=== PATIENT | female | born 1950 | race Caucasian/White ===

== ENCOUNTER → 2016-04-13 | Outpatient (CLI) | payer OTHER ==
[~2016-04-13] MED LIST: ALBUTEROL0.09 MG/A2; ALBUTEROL0.09 MG/A2 INH; ASPIRIN325 MG PO; AUGMENTIN 500500 M1 PO; BENICAR HCT 251 TA1 PO; CARDIZEM CD240 M1 PO; CARISOPRODOL350 MG PO; CEFUROXIME AXE250 MG PO; CIPRO750 MG PO; CLOTRIMAZOLE ANTIF1% TP; COMPAZINE10 MG; CYMBALTA60 MG PO; DICLOFENAC SOD75 MG PO; DILTIAZEM CD240 MG PO; DIOVAN320 MG PO; DOXYCYCLINE100 M3 PO; ELIQUIS5 M1 PO; EVISTA60 MG PO; GLIMEPIRIDE4 MG PO; IMODIUM2 MG PO; LEVAQUIN750 MG PO; LIPITOR80 MG PO; LOVAZA1 GM PO; LYRICA300 MG PO; MIRALAX17 GM/DOSE PO; MIRALAX17 GM/PACK PO; PERCOCET 325 MG1 TA7 PO; PERCOCET 325 MG1 TAB PO; PLAVIX75 MG PO; PREDNISONE5 MG PO; PRILOSEC40 MG PO; PROCHLORPERAZINE PO; PROTONIX40 MG PO; SPIRIVA18 MCG INH; SYMBICORT1 AER INH; TIZANIDINE HCL4 MG PO; TRILIPIX PO; TRILIPIX45 M1 PO; ZANTAC 150150 MG PO; ZOFRAN ODT8 MG PO
--- NOTE | ~2016-04-13 | PR ---
[place], [place] PROGRESS NOTE NAME: VLADISLAV GALDAMEZ [facility] #: [id number] UNIT #: [id number] ROOM: DOCTOR: TITUS MahoneyCHERYL BIRTHDATE: [birth year] DOS: 04/13/2016 CHIEF COMPLAINT: Open ulcers of the left lower extremity and right lower extremity. HISTORY OF PRESENT ILLNESS: This is a 66-year-old female with a history of recurrent venous leg ulcers who has been treated in the wound clinic and is known to me from her previous admission. She was discharged back in January after her wounds healed with compression therapy. She returns today with new ulcerations that she has had for approximately a month and half on the left leg as well as some on the right leg. She has a history of chronic edema. I did write her a script for new compression stockings, but she has not gotten them filled. She says her has been sick and has not been able to drive for quite some time. She does complain of some discomfort around the wounds, mostly on the left leg. No fevers or chills are noted. PHYSICAL EXAMINATION: VITAL SIGNS: Stable. Blood pressure is 110/84, pulse of 80, respirations 18, temperature is 97.8. EXTREMITIES: The right leg has a wound that is measuring approximately 0.8 x 0.8 x 0.1. There is a very thick eschar formation and there is some minimal erythema around the periwound. This does not appear to be tender. There is moderate amount of pitting edema of this lower extremity. Her left lower extremity also has fairly larger wounds on the anterior and calf area of the left lower leg that are superficial in nature, but fairly weepy with some surrounding erythema and discomfort. There is some minimal fibrin slough present in the base of the wound that is superficial and there is some adherent slough present in the periwound area as well. Her pulses are palpable. Her WILEY was done just a few months ago and was within normal limits in both lower extremities. Her pedal pulses are palpable as stated above. She does have a fair amount of pitting edema bilaterally. The measurements of the left lower leg wound are 6.1 x 2.3 x 0.1. The posterior calf wound is measuring 2.2 x 1.5 x 0.1. Debridement was done of the left calf wound as well as the right anterior wound. The tissue removed was just fibrin slough, nonviable tissue. There is minimal amount of bleeding that was controlled with pressure. The patient tolerated the debridement well. The post-debridement measurements are the same on the left leg. However, the post-debridement measurements on the right leg are slightly different at 1 x 0.6 x 0.1. The patient tolerated the debridement well. Instrument used was a curette. Cetacaine spray was used for topical anesthesia. ASSESSMENT AND PLAN: Recurrent venous leg ulcers in a patient with chronic leg edema. She did respond very well to Unna boot therapy last time, we will go ahead and restart the use of use Adaptic and a collagen dressing for now. Unna boot will be applied on the left leg as those wounds are much larger than the right lower leg wounds at this time. We will have her use a Tubigrip on the right lower extremity while she is here, she has compression stockings that she can use on her right leg at home. The Unna boot will be applied today and then she will follow back up in the Wound Clinic early next week on Sunday for a [place], [place] PROGRESS NOTE NAME: VLADISLAV GALDAMEZ UNIT #: [id number] ROOM: DOCTOR: CHERYL QURESHI M.D. BIRTHDATE: [birth year] wound care appointment and reevaluation. She did do well with the Unna boots before and I expect that she will do fine with these as well. She did have some mild erythema and tenderness around the periwound and mild cellulitis. We will add doxycycline to the regimen for 10 days. Followup is next week. CHERYL QURESHI MD CM:FLORINDA [id number] CHERYL QURESHI M.D. 04/13/16 2938 interface
== END ==
LOC: WOUNDCARE 03:10
DX: E11.622 Type 2 diabetes mellitus with other skin ulcer (principal); L97.821 Non-pressure chronic ulcer of other part of left lower leg limited to breakdown of skin; L97.811 Non-pressure chronic ulcer of other part of right lower leg limited to breakdown of skin; I87.2 Venous insufficiency (chronic) (peripheral)

== ENCOUNTER 2016-08-27 17:10 | Inpatient (IN) | payer OTHER, MEDICARE ==
[~2016-08-27] VITALS: Ht 165.1 cm; Wt 113.4 kg
--- NOTE | ~2016-08-27 | PR ---
[place], [place] PROGRESS NOTE NAME: VLADISLAV GALDAMEZ UNIT #: [id number] ROOM: [facility]- DOCTOR: GABRIELA PARDO MD BIRTHDATE: [birth year] DOS: 08/30/2016 SUBJECTIVE: Ms. Galdamez is now sitting up in chair, quite responsive on oxygen. Denies any specific cardiac complaint. No chest pain, chest pressure, no symptomatic palpitation. OBJECTIVE: VITAL SIGNS: Blood pressure 102/63, heart rate 112, respiratory rate of 20, temperature 97.4. NECK: Good upstroke, no bruit. HEART: S1, S2 with distant heart sound. No rub, no retrosternal heave. Systolic ejection murmur at the right upper sternal border. LUNGS: Decreased air movement, but no [place] wheezing or rales. EXTREMITIES: Lower extremities, there is mild 1-2/4 edema. LABORATORY DATA: White count 12.7, hemoglobin 12.3, potassium 3.0, creatinine 1.7. Troponin, last value 0.26. CPK and MB were negative. ASSESSMENT AND PLAN: 1. Presentation with septic shock. The patient is requiring Levophed. The patient is currently off the pressors. Sitting up in chair showing significant improvement. 2. Elevated cardiac enzymes that is overall not consistent with an ischemic event. 3. Echocardiogram showed normal LV function with moderate aortic stenosis. 4. Ischemic evaluation will be pursued and this can be done as an outpatient. 5. Maximize anti-ischemic medications as much vital signs will allow us targeting the remote possibility of acute coronary syndrome. GABRIELA PARDO MD CM:PNTRANS [id number] GABRIELA PARDO MD 08/30/16 2344 interface
--- NOTE | ~2016-08-27 | DS ---
[place], [place] DISCHARGE SUMMARY NAME[id number] UN[facility] #: [id number] ROOM: 406 DOCTOR: JUANI HATCH MD BIRTHDATE: [birth year] DOS: 09/06/2016 DISCHARGE DIAGNOSES: 1. Sepsis, hypotension, tachycardia, fever, positive blood and urine cultures for Escherichia coli, treated and resolved. 2. Acute atrial fibrillation, now converted to sinus rhythm. 3. Type 2 diabetes mellitus. 4. Type 2 myocardial injury followed by Cardiology. 5. History of coronary artery disease of [place] vessels without chest pains. 6. Urinary tract infection with urine cultures growing Escherichia coli and cystitis. 7. Morbid obesity, BMI of 41.6 right and left lower extremity superficial skin wounds with chronic stasis dermatitis in both lower extremities. 8. Poor health and adult failure to thrive. HOSPITAL COURSE: The patient presented with hypotension, rapid heart rates, high-grade fever and severe sepsis. The patient was admitted to the ICU, treated with hydration with IV fluids and antibiotics. The patient was followed by Cardiology; Infectious Disease specialist; and environmental communications specialist, Dr. Carvajal. The patient had altered mental status and does not remember the time of coming to the hospital or her first few days at the hospital. The patient was treated for respiratory failure with BiPAP and she later on became more alert and oriented and her blood pressure improved. The patient was kept on pressors without IV infusion of pressors to maintain her blood pressure. The patient's cardiac enzymes were elevated and she was evaluated by Cardiology for this. The patient's cardiac enzyme elevation was thought to be secondary to her sepsis. Further cardiac evaluation as an outpatient to be decided by the microwave supervisor. Adult failure to thrive and overall poor health and poor long-term prognosis because of her multiple medical problems, generalized weakness, disability and failure to thrive. This was discussed with the patient and her together on multiple occasions. I have recommended that the patient should maintain a DNR comfort care code status. Coronary artery disease of [place] vessels without chest pains. Type 2 diabetes mellitus. Blood sugars were monitored and treated and are reasonably controlled. The patient developed acute atrial fibrillation which has converted back to normal sinus rhythm. I have treated her with digoxin. The patient grew E. coli from blood and urine cultures which was appropriately treated with antibiotics. For rehabilitation, the patient is being transferred to intermediate facility. My attempt to transfer her to an LTAC facility, which she required, was turned down by the patient's insurance. Mixed hyperlipidemia, treated with Lipitor. [place], [place] DISCHARGE SUMMARY NAME: VLADISLAV GALDAMEZ UNIT #: [id number] ROOM: [facility] DOCTOR: OHLDEN SHARMA,JUANI Douglass BIRTHDATE: [birth year] Chronic constipation, treated with MiraLax. DISCHARGE MANAGEMENT: Digoxin 250 mcg daily, Xarelto 20 mg daily, metoprolol 25 mg b.i.d., Nicotine patch 21 mg daily, Tylenol p.r.n., glimepiride 4 mg a day, DuoNeb every 4 hours, Protonix 40 mg a day, Cymbalta 60 mg b.i.d., tizanidine 4 mg b.i.d., MiraLax 17 grams daily, Lipitor 80 mg daily, oxycodone 5 mg every 6 hours p.r.n. for pain. JUANI HATCH MD CM:DISCHARG 34 JUANI HATCH MD 09/06/161933 interface
--- NOTE | ~2016-08-27 | PR ---
[place], [place] PROGRESS NOTE NAME: VLADISLAV GALDAMEZ UNIT #: [id number] ROOM: 406 DOCTOR: JUANI HATCH MD BIRTHDATE: [birth year] DOS: 09/07/2016 The patient is still waiting for discharge to longterm facility. She continues to improve daily, but she is not independently transferring or ambulating. OBJECTIVE: VITAL SIGNS: Blood pressure 131/66, heart rate of 87 beats per minute, breathing 20 times per minute, temperature afebrile. GENERAL APPEARANCE: Generalized weakness and obesity. HEENT AND NECK: Exam within normal limits. CARDIOVASCULAR SYSTEM: Heart rate is regular in rate and rhythm. S1 and S2 normally audible. LUNGS: Clear to auscultation. ABDOMEN: Soft, nontender. No obvious organomegaly. Bowel sounds are present. EXTREMITIES: Without significant cyanosis or edema. IMPRESSION: 1. Sepsis, hypotension, tachycardia, fever and positive blood cultures with E. coli and urine cultures, have been treated. 2. Chronic atrial fibrillation with controlled heart rates. 3. Type 2 diabetes mellitus with controlled blood sugars. 4. Coronary artery disease of [place] vessels without chest pain. 5. Morbid obesity. The patient working with dietary. 6. Poor health and adult failure to thrive. JUANI HATCH MD CM:PNTRANS [id number] JUANI HATCH MD 09/08/16 0034 interface
--- NOTE | ~2016-08-27 | PR ---
[place], [place] PROGRESS NOTE NAME: [facility] [id number] UNIT #: [id number] ROOM: 406 DOCTOR: GABRIELA PARDO MD BIRTHDATE: [birth year] DOS: 08/31/2016 SUBJECTIVE: The patient is sitting in a chair, still in the Intensive Care Unit, reporting significant improvement in her shortness of breath and denies any specific cardiac complaint. No chest pain, no chest pressure, no symptomatic palpitation. OBJECTIVE: VITAL SIGNS: Blood pressure 125/74, heart rate 87, respiratory rate of 20, temperature 98.7. NECK: Good upstroke, no bruit. HEART: S1, S2 with systolic ejection murmur at the right upper sternal border. LUNGS: Significant decrease in air movement, but no [place] wheezing or rales. LOWER EXTREMITIES: Edema bilateral. LABORATORY DATA: White count is 12.7, hemoglobin is 12.3, still there is left shift. Potassium 3.1, creatinine 1.3, GFR 40%. Initial troponin 0.262, then 0.576, then 0.514, then 0.139. CPK is 192 and 239, MB 2.1 and 1.8. ASSESSMENT AND PLAN: 1. Presentation with septic shock with need for pressors (Levophed). The patient is off pressors, sitting up in a chair, does not appear in distress, reporting significant improvement. 2. Elevated cardiac enzymes with normal CPK and MB, but elevated troponin, pattern most likely not consistent with ischemic event. Still we would like to be careful in pursuing ischemic workup later on and can be done as an outpatient. Today, I will proceed to stop the digoxin and increase Toprol to 25 mg b.i.d. Continue enteric aspirin for now. Aggressive cardiac risk modification will be pursued also as an outpatient. Consider sleep study also. GABRIELA PARDO MD CM:PNTRANS [id number] GABRIELA PARDO MD 09/01/16 7897 interface
--- NOTE | ~2016-08-27 | PR ---
[place], [place] PROGRESS NOTE NAME: VLADISLAV GALDAMEZ UNIT #: [id number] ROOM: 406 DOCTOR: JUANI HATCH MD BIRTHDATE: [birth year] DOS: 08/31/2016 SUBJECTIVE: The patient is more awake and alert, feeling much better. OBJECTIVE: VITAL SIGNS: Blood pressure 132/82, heart rate of 95 beats per minute, breathing 20 times per minute, temperature 98.2 degrees Fahrenheit. GENERAL APPEARANCE: The patient is alert and oriented x 3, in no visible distress. HEENT AND NECK: Exam within normal limits. CARDIOVASCULAR SYSTEM: Heart rate is regular in rate and rhythm. S1 and S2 normally audible. LUNGS: Clear to auscultation. ABDOMEN: Soft, nontender. No obvious organomegaly. Bowel sounds are present. EXTREMITIES: Without significant cyanosis or edema. IMPRESSION: 1. The patient with sepsis, leukocytosis, fever, all improved. 2. Atrial fibrillation with varying heart rate, presently stable. The patient on Lopressor. Cardiology following. 3. Type 2 diabetes mellitus. Blood sugars being monitored and controlled. 4. Coronary artery disease of [place] vessels without angina symptoms. 5. Generalized weakness, failure to thrive and lethargy, all improved with treatment. 6. Hypotension from sepsis, improved. The patient can be sent to intermediate monitored bed today. JUANI HATCH MD CM:PNTRANS 02 2 JUANI HATCH MD 09/01/16 013 interface
--- NOTE | ~2016-08-27 | PR ---
[place], [place] PROGRESS NOTE [id number] #: [id number] ROOM: 406 DOCTOR: TITUS Mahoney,CHERYL BIRTHDATE: [birth year] DOS: 09/06/2016 WOUND CARE FOLLOWUP NOTE I was asked to see the patient's wound today as there was a question about possibly discontinuing the alginate as there is very little drainage. The last time I had seen the patient, there were plans for the patient to be discharged to either a usp or long-term OPAC, however, this apparently did not take place. The patient says she thinks her wounds are doing fine and they are not causing her any pain or discomfort at this time. PHYSICAL EXAMINATION: VITAL SIGNS: The patient's vitals are stable. Temperature 98.9, pulse is 84, respirations 18, blood pressure is 148/79. WOUND EXAIMINATION: The dressings were removed. The wounds were examined. The edema seems improved and the ulcerations are markedly improved from when I last saw her. There is no necrotic tissue. The left leg wound, which was quite large upon admission, has improved at least 75%. There is large amounts of epithelialization and no sign of infection. The edema is controlled. The right lower extremity wound is also much smaller and has greatly improved. There is very little drainage on the dressings. The Maxorb was really almost dry. ASSESSMENT AND PLAN: Venous leg ulcerations bilaterally. The left was larger than the right. They are definitely improving and stable. There is no sign of excessive drainage or infection and it is okay to go ahead and discontinue the alginate. So, we will just go ahead and continue with TheraHoney, Versatel, 4 x 4s and Tubigrip. These orders were changed in the discharge orders if the patient is planning on being discharged soon. CHERYL QURESHI MD CM:PNTRANS [phone] CHERYL QURESHI M.D. 09/06/161840 interface
--- NOTE | ~2016-08-27 | CON ---
[place], [place] REPORT OF CONSULTATION NAME: VLADISLAV GALDAMEZ UNIT #: [id number] [facility] DOCTOR: TITUS MahoneyCHERYL BIRTHDATE: [birth year] DOS: 08/28/2016 REASON FOR CONSULT: Wound care has been consulted for bilateral leg wounds. HISTORY OF PRESENT ILLNESS: The patient is known to the Wound Clinic for history of venous insufficiency. She had responded well to compression therapy. We had used Unna Boots in the past and her wounds have healed, but she has not come back to the wound clinic. The last time we saw her was back in April. The last time we had seen her I did write a script for compression stockings for her. I do not know if she ever obtained them or not. She has a history of chronic edema. Her ABIs back in December were 1.04 and 1.11, which is normal. Briefly, the patient has a history of diabetes and had come to the Emergency Department with complaints of mental status changes. She was brought in by her . She was also noticed to have a fever of 103 and was noted to have some seeping wounds of her right leg with an odor noted from the right leg wound, it sounds like; as well as noted to have foul, urinary incontinence as well. The patient had a fever of 103 when she was admitted, was lethargic, minimally responsive and had signs of sepsis. Apparently, it sounds like it started suddenly when she was fine earlier that day, had eaten breakfast and then she had shaking chills and the had noticed that she had been more and more incoherent. Her glucose was noted to be at 207 upon arrival to the EMS and she had a fever of 101, but had shaking chills. PAST MEDICAL HISTORY: Significant for the following; abdominal pain, coronary artery disease, cellulitis of the abdominal wall, diabetes, GERD, intractable nausea and vomiting, morbid obesity, respiratory failure and sepsis as well as tobacco abuse. PAST SURGICAL HISTORY: Positive for laminectomy, right knee surgery, tubal ligation, appendectomy. She has also had eye surgery, bunion surgery, teeth extractions, cardiac catheterization and stents x 2. SOCIAL HISTORY: She does not drink or use drugs, but she does smoke. Apparently, she smokes 3 packs a day of cigarettes. There is a history of paroxysmal atrial fibrillation as well, diabetes mellitus, polyneuropathy, hyperlipidemia, and major depression. ALLERGIES: PENICILLIN. FAMILY HISTORY: Coronary disease in her father, diabetes in her father, myocardial infarction in her father. Mother; failure to thrive syndrome. MEDICATIONS: Levaquin 750 mg IV q. 48h., Lovenox 30 subq daily, vancomycin 1750 IV q. 36h., Lovenox 30 subq daily, Tylenol 650 q. 4h. p.r.n., Nicoderm 21 mg daily, aspirin 81 daily, norepinephrine drip, glimepiride 4 mg p.o. daily, albuterol nebs 3 mL q. 4h., Protonix 40 mg p.o. daily, Toprol-XL 25 daily, Cymbalta 60 q. 12h., Zanaflex 4 mg p.o. q.i.d., MiraLax powder 17 g daily, Lipitor 80 at bedtime. REVIEW OF SYSTEMS: Unobtainable at this time. [place], [place] REPORT OF CONSULTATION NAME: VLADISLAV GALDAMEZ UNIT #: [id number] ROOM: [facility] DOCTOR: CHERYL QURESHI M.D. BIRTHDATE: [birth year] PHYSICAL EXAMINATION: VITAL SIGNS: Her temperature is 99.1 presently, but she did have a T-max of 103.1 upon arrival, pulse of 87, respirations 24, blood pressure is 80/34. The patient currently is on a BiPAP machine. GENERAL: She is lethargic and sleeping at the present time. Her face appears to be moderately edematous. NECK: There is no JVD. LUNGS: Her lung sounds are diminished in the bases, but clear to auscultation anteriorly. CARDIOVASCULAR: S1, S2 regular rate and rhythm, tachycardic. ABDOMEN: Morbidly obese and soft. EXTREMITIES: She has 2+ to 3+ pitting edema bilaterally. Her pedal pulses are palpable and her toes are warm. She has a fairly large ulceration on the left leg laterally that is superficial in nature with some weeping serous fluid coming from it. It is fairly large, I would say approximately 6-7 cm in length and 4-5 cm in width. There is really not much depth, depth of 0.1. There appears to be a healing ulcer on the left calf, which appears dry and stable at this time. The right anterior leg has a wound that is size of a quarter that is dry. Presently, there is [id number] erythema around the area. It does not appear moist at this time, it appears extremely dry presently. LABORATORY DATA: Her labs show a white count of 21,000, hemoglobin of 13, platelets of 126,000 with 94% neutrophils. She had a urinalysis, which showed 2+ blood, nitrite positive, 3+ leukocyte esterase, numerous red cells, numerous white blood cells, 5-10 epithelial cells, trace sediment and 4+ bacteria. She had a chest x-ray which showed no consolidation or atelectasis in either lung. She had a troponin that was positive at 0.576 and a CPK of 239. Her sodium was 143, potassium 3.3, chloride 108, BUN 29, creatinine was 1.96, glucose was 136, hemoglobin A1c was 5.1, albumin was 2.9. ASSESSMENT AND PLAN: Chronic venous stasis ulcerations complicated by diabetes. At this point, for the left leg; it looks like a culture was already obtained; I would use Versatel and Maxorb Silver to absorb drainage and for bioburden control. For her edema, I will use a Tubigrip for now and at some point we may want to switch to an Michael wrap. She did have a good WILEY while she was here at the wound clinic, but we may want to consider repeating her vascular testing while she is here. Her right lower extremity has wounds at various stages of healing; at this point are fairly dry. There is some mild erythema of the right anterior leg wound so I would go ahead and try TheraHoney and the Versatel for now on this wound and have her use Tubigrip as well for edema control. She did respond very well to Unna Boots in the past in the Wound Clinic. She has multiple other medical problems including sepsis, positive cardiac enzymes from renal failure, hypotension, which is being managed by her medical team. She continues to be in critical condition in the ICU on pressors. Thank you for this consult. [place], [place] REPORT OF CONSULTATION NAME: VLADISLAV GALDAMEZ UNIT #: [id number] ROOM: [facility] DOCTOR: CHERYL QURESHI M.D. BIRTHDATE: [birth year] CHERYL QURESHI MD CM:CONSTR:REPORT OF CONSULTATION 1611 08/28/16 2323 interface
--- NOTE | ~2016-08-27 | CON ---
[place], [place] REPORT OF CONSULTATION NAME: VLADISLAV GALDAMEZ UNIT #: [id number] ROOM: [facility] DOCTOR: FRANCESCO NOVA MD BIRTHDATE: [birth year] DOS: 08/28/2016 PULMONARY CRITICAL CARE EVALUATION AND MANAGEMENT HISTORY OF PRESENT ILLNESS: A 66-year-old female with a known with history of longstanding COPD, tobacco use and other problem. The patient has been brought to the hospital. The patient has been noted with symptoms of increased lethargy, decreased responsiveness and not responding to the vocal commands appropriately but spent for 24 hours. The symptoms have been noted worsening. The patient has been noted mostly lying in the cart with difficulty to ambulate and use the bathroom as well. The patient has been assessed in the Emergency Room. She was noted oral temperature of 101 degrees Fahrenheit with foul smelling wound, some discharge of the left lower extremity as well and significantly lethargic. She was brought to the Emergency Room where she has been assessed and admitted to the hospital. The patient was started on oxygen supplementation for the medical management of respiratory failure and hypoxia. Currently, the patient is getting 50% oxygen supplementation for the medical management of hypoxia. She was still noted with some drowsiness and falls quickly sleeping as the patient answered their questions only at times. The vocal communication was not noted adequate at this time of assessment in the Intensive Care Unit. The patient's son has been also present in the room with the patient who assisted only part of the history. The review of systems cannot be completed effectively since the patient has been noted with current change in mental status; however, the patient has been noted with severe chest congestion, coughing on assessment at this time in the room. PAST MEDICAL HISTORY: The patient was known with history of: 1. Wound of the lower extremities which has been managed by the wildlife refuge specialist. Last time, the patient has been seen in the [facility] appeared like in April 2016. 2. History of longstanding COPD. 3. History of chronic heavy nicotine abuse. 4. History of pancolitis. 5. History of obesity hypoventilation and obstructive sleep apnea disorder, noncompliant with treatment. 6. History of diabetic neuropathy. 7. History of coronary artery disease. 8. Gastroesophageal reflux. 9. Hypercholesterolemia. 10. History of aortic stenosis. 11. Abdominal wall cellulitis as well with panniculitis. 12. History of centrilobular emphysema. PAST SURGICAL HISTORY: 1. Tubal ligation. 2. Right eye cataract extraction. 3. Right knee arthroscopy. 4. Removal of the bunion. 5. Cardiac catheterization and coronary artery stent placement. [place], [place] REPORT OF CONSULTATION NAME: VLADISLAV GALDAMEZ UNIT #: [id number] ROOM: [facility] DOCTOR: ANNIE MARTIN MD,FRANCESCO BIRTHDATE: [birth year] 6. Lumbar laminectomy. SOCIAL HISTORY: The patient is and lives at home with . Noted history of tobacco use since teenager. Per son, the patient was smoking 3-4 packs of cigarettes per day. There was no history of alcohol use or illicit drug use. FAMILY HISTORY: Noted for diabetes, CVA, and hypertension. MEDICATIONS: From home: 1. ProAir HFA inhaler p.r.n. use. 2. Symbicort 80/4.5 two puffs b.i.d. 3. Spiriva 18 mcg inhalation daily. 4. Lipitor 80 mg daily. 5. Cymbalta 60 mg b.i.d. 6. Amaryl 4 mg daily. 7. Imodium p.r.n. use. 8. Percocet p.r.n. use for pain. 9. Lyrica 300 mg b.i.d. 10. Evista 60 mg daily. 11. Ranitidine 150 mg p.o. daily. 12. Zanaflex 4 mg q.i.d. DRUG ALLERGIES: Noted allergies to the PENICILLINS. PHYSICAL EXAMINATION: GENERAL: This is a 66-year-old female who has been noted currently drowsiness, wakes up sometimes with the vocal commands. VITAL SIGNS: Height of 5 feet 5 inches, weight of 250 pounds, BMI 41.6. Vital signs recorded shows the temperature noted max of 103 degree Fahrenheit orally and later on noted low-grade fever to 101.3 rectal temperature. HEENT: Shows head was atraumatic. Eyes: No icterus. NECK: Supple. CARDIOVASCULAR: S1, S2 audible. LUNGS: Noted moderate decreased breath sounds with wheezing and scattered crackles. ABDOMEN: Soft, obese, nontender. EXTREMITIES: Noted with edema of the lower extremity. There is a wound of the left lower extremity as well. ABDOMEN: Soft, obese, nontender. CENTRAL NERVOUS SYSTEM: Cannot be examined. The patient failed to follow the instructions appropriately. There were no focal deficits. The patient does move upper and lower extremities at her own will. MUSCULOSKELETAL: No obvious deformities. SKIN: Shows severe cellulitis of lower extremity and wound of the left lower extremity as well. LABORATORY DATA: Lactic acid on 08/27/2016 3.0. Lactic acid followup was 2.0. PT/PTT on 08/27/2016 was noted as normal PT and PTT. CBC, 08/27/2016, on admission noted as normal CBC except platelet count 127,000 mildly decreased. [place], [place] REPORT OF CONSULTATION NAME: VLADISLAV GALDAMEZ UNIT #: [id number] ROOM: [facility] DOCTOR: ANNIE MARTIN MD,[facility] BIRTHDATE: [birth year] Urinalysis on 08/27/2016, 3+ leukocyte esterase, positive nitrites with pending culture of the urine. Arterial blood gas, pH of 7.42, pCO2 of 37, pO2 of 59 on 6 L nasal cannula in the Emergency Room. Another arterial blood gas repeated this morning, pH of 7.48, pCO2 of 32, pO2 of 66 on 50% Venturi mask. CBC this morning, WBC count 21.1, hemoglobin 13.9, hematocrit 42.2, platelet count noted 126,000. ADDITIONAL LABORATORY DATA: CMP on 08/27/2016, glucose 156, BUN 29, creatinine 1.79. Troponin noted at 0.139. Albumin 2.9. Second set of troponin noted 0.514. The third troponin noted as 0.576. BMP this morning, BUN 29, creatinine 1.96, glucose 136, potassium 3.3. IMPRESSION: 1. The patient has been currently noted with acute hypoxic respiratory failure, result of acute exacerbation with chronic obstructive pulmonary disease as well as acute sepsis related to the cellulitis of lower extremity and urinary tract infection, very likely an acute tracheobronchitis with excessive chest congestion was also noted as well. 2. Chronic obesity noted as well with obstructive sleep apnea disorder and obesity-hypoventilation syndrome, noncompliant with the treatment. 3. History of type 2 diabetes mellitus as well. 4. Acute kidney injury, very likely possible underlying chronic kidney disease would be considered. 5. Normal troponin to rule out possibility of non-ST segment elevation myocardial infarction. 6. Thrombocytopenia, most likely related to the acute sepsis as well. PLAN OF MANAGEMENT: The patient will be ordered the BiPAP ____ acute hypoxic respiratory failure. Continue current antibiotic. Monitor the temperature curve. Monitor other culture of the blood and urine. Sputum for Gram stain culture if the patient expectorates any sputum will be sent. The patient will be started norepinephrine for the medical hypotension since the mean arterial pressure noted 60 after previous fluid resuscitation. Monitor lactic acidosis p.r.n. Bronchodilator will be continued. The patient was also started on nicotine replacement patches. Management of diabetes mellitus. Usual care, other supportive therapy, plan and management as well. Addition of vancomycin to the treatment of Levaquin to cover for the gram-positive organism for adequate management of skin infections and wound of the left lower extremity. Culture of the wound will be obtained as well. Further supportive therapy, plan of management. Wound management consultation would be beneficial. DVT prophylaxis. Total time for pulmonary critical care evaluation and management was 38 minutes. [place], [place] REPORT OF CONSULTATION NAME: VLADISLAV GALDAMEZ UNIT #: [id number] ROOM: [facility] DOCTOR: FRANCESCO NOVA MD BIRTHDATE: [birth year] FRANCESCO VALENCIA MD CM:CONSTR:REPORT OF CONSULTATION 1048 08/28/162032 interface
--- NOTE | ~2016-08-27 | DS ---
[place], [place] DISCHARGE SUMMARY NAME: VLADISLAV GALDAMEZ [facility] #: [id number] UNIT #: [id number] ROOM: 406 DOCTOR: HOLDEN SHARMAJUANI J BIRTHDATE: [birth year] DOS: 09/01/2016 DISCHARGE DIAGNOSES: The patient presented with severe sepsis, leukocytosis, hypotension, fever, altered mental status and respiratory failure. HOSPITAL COURSE: The patient was admitted to the ICU and Dr. Carvajal, the cessation systems outreach specialist and feeder driver was consulted to help with management along with Dr. Diego Leach, the poiser. The patient was treated in the ICU. She was kept on BiPAP for respiratory failure and followed closely. The patient mostly remained lethargic and was unable to answer any questions. The patient was severely hypotensive and had to be treated with Levophed to maintain her blood pressure. As her sepsis improved, she was tapered off Levophed. The patient still remains on antibiotic and I am transferring her to LTAC facility for continued and close monitoring. The patient is going to have a prolonged recovery phase because she was extremely sick and her underlying health is poor. The patient is awake, alert and oriented now, but very weak. 1. Adult failure to thrive, obesity, chronic respiratory failure with advanced COPD and history of smoking 3 packs of cigarettes a day. Her long-term prognosis remains guarded. 2. For hypotension, the patient was treated with pressors along with hydration with normal saline, which improved her renal function back to baseline. The patient's BUN and creatinine was 29 and 1.79, which has improved to 31 and 1.32 with hydration. The patient had acute renal failure apparently from sepsis and hypotension, which is resolving now. 3. Urinary tract infection with Escherichia coli growing in urine cultures and also blood cultures, treated appropriately with antibiotics. 4. Elevated troponin levels for which the patient was seen by Cardiology who recommended a cardiac stress test to be performed later after patient has stabilized and is able to undergo cardiac stress testing. Cardiac enzyme elevation apparently secondary to sepsis and hypotension. 5. Right and left lower extremity wounds were treated by training and documentation specialist with appropriate dressings and will be continued at [facility]. 6. Coronary artery disease of the [place] vessels without angina symptoms, with some elevation of troponin I levels, evaluated by Cardiology. 7. Type 2 diabetes mellitus. Blood sugars are monitored and treated. 8. Chronic atrial fibrillation with varying heart rates and recurrent tachycardia, finally treated with IV and now oral digoxin to control the heart rates. LABORATORY DATA: BUN and creatinine of 31 and 1.3 prior to discharge, potassium level of 3.1 for which she received extra potassium dose. Urine cultures and blood cultures both growing E. coli, so the patient had E. coli sepsis. Echocardiogram showed moderate aortic stenosis, it was a limited study, not a very good view according to Cardiology report. DISCHARGE MANAGEMENT: Digoxin 250 mcg daily, Xarelto 20 mg a day, metoprolol 25 mg b.i.d., nicotine patch 21 mg daily, Tylenol 1 gram every 6 hours p.r.n. for pain and fever, glimepiride 4 mg a day, DuoNeb every 4 hours, Protonix 40 mg a day, Cymbalta 60 mg b.i.d., tizanidine 4 mg b.i.d., MiraLax 17 grams daily, Lipitor 80 mg a day, oxycodone 5 mg every 6 hours p.r.n., IV ceftriaxone 2 grams [place], [place] DISCHARGE SUMMARY NAME: VLADISLAV GALDAMEZ UNIT #: [id number] ROOM: 406 DOCTOR: JUANI HATCH MD BIRTHDATE: [birth year] daily. JUANI HATCH MD CM:DISCHARG [id number] JUANI HATCH MD 09/01/16 1330 interface
--- NOTE | ~2016-08-27 | PR ---
[place], [place] PROGRESS NOTE NAME: VLADISLAV GALDAMEZ UNIT #: [id number] ROOM: [facility] DOCTOR: ANNIE MARTIN MD,FRANCESCO BIRTHDATE: [birth year] DOS: 08/29/2016 SUBJECTIVE: This morning, the patient was seen and examined on the date of service of 08/29/2016. She has been noted to be still sleepy at times intermittently. The patient has not noted any symptoms of hemoptysis. Denies symptoms of chest pain, coughing or any sputum expectoration described. The use of the BiPAP has been noted at times for this patient. The patient usually agitated with the use of BiPAP. The patient was also given Geodon by the primary care attending for the agitation. OBJECTIVE: VITAL SIGNS: This morning, blood pressure of 82/46 to 101/44. The heart rate of patient ranged between 105-133, respiratory rate 25-30, temperature 99.5 degrees Fahrenheit. HEENT: Shows no new changes. NECK: Supple. CARDIOVASCULAR: S1, S2 is audible. LUNGS: The patient was noted without any wheezing or crackles at the present time. ABDOMEN: Soft and nontender. EXTREMITIES: Evidence of edema of the extremities still noted with the wound of the left lower extremity. LABORATORY DATA: CBC this morning, WBC count 16.7, hemoglobin and hematocrit normal, platelet count 106,000. BMP: BUN 32, creatinine 1.95, potassium was 3.1. Other labs; the urine culture was noted with heavy growth of gram-negative bacilli. The culture of the wound for this patient was noted without any bacterial growth. No white blood cells, no microorganisms were described. IMPRESSION: 1. The patient with acute urinary tract infection with sepsis as well as acute hypoxic respiratory failure for the patient as a result of that as well. 2. The patient with intermittent change in mental status. 3. Acute kidney injury as well. 4. Abnormal troponin for this patient was still noted. 5. Right lower extremity and the left lower extremity wounds as well. 6. Acute exacerbation of chronic obstructive pulmonary disease as well. PLAN OF TREATMENT: The patient will be continued with the current plan of management at this time without any changes. Continuation of the bronchodilator with oxygen supplementation. Other supportive therapy, plan of management as well. Use of the BiPAP, the patient has tolerated as well. Monitoring the hemodynamics and support of the blood pressure with vasopressors. In case of worsening of the respiratory status, the patient might require to be intubated and started on mechanical ventilation. Total time for pulmonary critical care evaluation and management was 34 minutes. [place], [place] PROGRESS NOTE NAME: VLADISLAV GALDAMEZ UNIT #: [id number] ROOM: [facility] DOCTOR: FRANCESCO NOVA MD BIRTHDATE: [birth year] FRANCESCO VALENCIA MD CM:PNTRANS [id number] FRANCESCO MARTIN MD 08/29/16 1410 interface
--- NOTE | ~2016-08-27 | PR ---
[place], [place] PROGRESS NOTE NAME: VLADISLAV GALDAMEZ UNIT #: [id number] ROOM: 406 DOCTOR: ANNIE MARTIN MD,FRANCESCO BIRTHDATE: [birth year] DOS: 09/07/2016 SUBJECTIVE: She has been noted to be comfortable at this time without any distress. The patient has been complaining of some cough, which has been currently noted to be nonproductive. Denies symptoms of chest pain or any abdominal pain. OBJECTIVE: VITAL SIGNS: Temperature normal, respiratory rate 18, heart rate 81, blood pressure 134/64. The pulse oxygen saturation on 4 liters nasal cannula 98% saturation. HEENT: Chronic obesity. NECK: Supple. CARDIOVASCULAR: S1, S2 audible. LUNGS: Without any wheezing or crackles at this time. ABDOMEN: Soft, nontender. LABORATORY DATA: The cultures of bronchial washings were noted as normal leydi. IMPRESSION: Significant improvement occurred for this patient with acute on chronic hypoxic respiratory failure with resolving respiratory symptoms and tracheobronchitis with exacerbation of chronic obstructive pulmonary disease. PLAN OF MANAGEMENT: Continue the patient's current therapy, plan of care as previously. Usual care, other supportive plan of management and treatment. FRANCESCO VALENCIA MD CM:PNTRANS [phone] FRANCESCO MARTIN MD 09/07/16 1114 interface
--- NOTE | ~2016-08-27 | PR ---
[place], [place] PROGRESS NOTE NAME: VLADISLAV GALDAMEZ UNIT #: [id number] ROOM: 406 DOCTOR: FRANCESCO NOVA MD BIRTHDATE: [birth year] DOS: 09/06/2016 SUBJECTIVE: She had bronchoscopy done successfully with copious amount of mucopurulent secretions and mucus plugs cleared from endobronchial tree bilaterally. This has resulted in reduction of the cough. The wheezing has been noted absent. Shortness of breath is improving. OBJECTIVE: VITAL SIGNS: Normal temperature, respiratory rate 20, heart rate 90, blood pressure 142/70-120/60. Intake for the patient noted 1100, the output was not documented. Pulse oxygen saturation on 4 liters nasal cannula 95% saturation recorded. HEENT: No acute change. NECK: Supple. CARDIOVASCULAR: S1, S2 audible. LUNGS: Noted without any wheezing or crackles at this time. ABDOMEN: Soft, nontender. LABORATORY DATA: Gram stain of the bronchial washing from yesterday were noted with moderate white blood cells, few epithelial cells, few gram-positive cocci in clusters. Preliminary culture for the patient was noted as normal leydi, final culture results were pending. IMPRESSION: 1. The patient with ongoing acute severe hypoxic respiratory failure. The patient with acute exacerbation of chronic obstructive pulmonary disease, improving with current medical treatment. 2. Chronic wound infection of the left lower extremity for this patient was also known. 3. Chronic obesity. 4. Clinical suspicion of obstructive sleep apnea disorder. PLAN OF TREATMENT: No change in the plan of management. Continue antibiotics, bronchodilators, oxygen supplementation as treatment. Possible discharge for the patient in the home setting with the [facility] might be considered. Other supportive plan of therapy and management. Continue oxygen supplementation to maintain a saturation of 92% or greater. [place], [place] PROGRESS NOTE NAME: VLADISLAV GALDAMEZ UNIT #: [id number] ROOM: 406 DOCTOR: FRANCESCO NOVA MD BIRTHDATE: [birth year] FRANCESCO VALENCIA MD CM:PNTRANS [phone] FRANCESCO MARTIN MD 09/06/16 1036 interface
--- NOTE | ~2016-08-27 | PR ---
[place], [place] PROGRESS NOTE NAME: VLADISLAV GALDAMEZ [facility] #: [id number] UNIT #: [id number] ROOM: 406 DOCTOR: KATELYN RUDD MD BIRTHDATE: [birth year] DOS: 09/04/2016 CARDIOLOGY PROGRESS NOTE SUBJECTIVE: The patient was seen at her bedside today for followup of coronary artery disease with an elevated troponin on this admission along with a history of paroxysmal atrial fibrillation, hyperlipidemia, and heavy tobacco abuse. According to reports, she did have cardiac catheterization and coronary stenting done 4 years ago in [place], but those records are not currently available. She presented to the hospital on this occasion with urosepsis and altered mental status along with hypotension that required pressors. The patient states that she still has significant complaints of neck pain, back pain and fatigue. She denies any chest pain or dyspnea today. PHYSICAL EXAMINATION: GENERAL: She is an overweight white female who is awake, alert and oriented. VITAL SIGNS: Pulse is 94 and regular, blood pressure 128/70. She is afebrile. NECK: Supple. She has no jugular distention. Carotids are full and I heard no bruits. LUNGS: Respirations were unlabored. Her chest had decreased breath sounds at the bases. HEART: Had a regular rhythm with an S4 gallop. There was no S3. ABDOMEN: Obese, but otherwise benign. EXTREMITIES: Wrapped. They do show trace edema. Heart monitor shows sinus rhythm. LABORATORY DATA: Hemoglobin has not been checked recently. Her last electrolytes were done on 08/31/2016. Renal functions have been stable, however. IMPRESSION: 1. Urinary tract sepsis, which has improved. 2. Severe chronic obstructive lung disease, status post acute hypoxic respiratory failure. The patient is doing well with nasal cannula oxygen supplementation. 3. Type 2 diabetes mellitus. 4. Diabetic ulcerations of the leg. 5. Type 2 myocardial injury this admission. The patient does have underlying coronary artery disease and an underlying acute coronary syndrome cannot be ruled out. 6. History of paroxysmal atrial fibrillation. The patient is currently in sinus rhythm. PLAN: No other cardiac workup is planned at this time. She will remain on rivaroxaban for atrial fibrillation and stroke prophylaxis. She should continue efforts to lose weight and modify her risk factors. She certainly should never smoke again. I think that subacute rehab at this point would be an appropriate step. [place], [place] PROGRESS NOTE NAME: VLADISLAV GALDAMEZ UNIT #: [id number] ROOM: 406 DOCTOR: BLAIRE SHARMA,KATELYN BIRTHDATE: [birth year] We will continue to follow her intermittently in the hospital and we thank Dr. Dacosta for asking our advice regarding her care. KATELYN RUDD MD CM:PNTRANS [id number] KATELYN RUDD MD 09/04/16 2344 interface
--- NOTE | ~2016-08-27 | PR ---
[place], [place] PROGRESS NOTE NAME: [facility]ALDAMEZ [facility] [id number] UNIT #: [id number] ROOM: 406 DOCTOR: JUANI HATCH MD BIRTHDATE: [birth year] DOS: 09/02/2016 DIAGNOSES: 1. The patient was treated for septic shock. She was feeling much better. Now, she has some pain and stiffness in her neck this morning. No fever or chills or any other symptoms. 2. Adult failure to thrive and morbid obesity. 3. Sepsis, hypotension, acute over chronic kidney failure. All resolved with hydration and treatment with antibiotics. 4. Urinary tract infection with sepsis with Escherichia coli growing from urine and blood cultures, have been treated, sensitive to all antibiotics. 5. Right and left lower extremity wounds being treated by audio specialist. 6. Coronary artery disease of the [place] vessels without chest pains. 7. Type 2 diabetes mellitus. Blood sugars are being monitored and controlled. 8. Chronic atrial fibrillation with varying heart rates and tachycardia slowed down with IV digoxin. The patient already anticoagulated with Xarelto. JUANI HATCH MD CM:FLORINDA [id number] JUANI HATCH MD 09/02/16 6547 interface
--- NOTE | ~2016-08-27 | PR ---
[place], [place] PROGRESS NOTE NAME: [id number]IT #: [id number] ROOM: 406 DOCTOR: TITUS Mahoney,CHERYL BIRTHDATE: [birth year] DOS: 09/01/2016 WOUND CARE PROGRESS NOTE The patient has been transferred from the ICU to the floor and is in process of being transferred to long-term acute care facility. The patient is sitting up without any specific complaints regarding her legs. PHYSICAL EXAMINATION: VITAL SIGNS: Stable. Temperature is 98.3, pulse of 101, respirations 18-22, blood pressure is 133/87, pulse ox is 93% on room air. The Tubigrip was not being utilized that I could tell, it just looked like she had the dressings on. The dressings were removed. The superficial large left leg ulcer on the left leg appears stable and improved. It looks slightly smaller to me. It is less weepy overall. There is no sign of an acute infection. Edema is still present, but seems improved as well. For the right lower extremity, there is a small wound that is about the same as before that also appears stable, it is not draining large amounts. She had a wound culture done on 08/28/2016, which was negative. 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 She will be needing wound care at the facility that she is going to, which usually can be provided at the facility and if not, she can follow up in the Wound Clinic if they do not provide wound care. Discharge orders for the wounds were written. CHERYL QURESHI MD CM:PNTRANS [id number] CHERYL QURESHI M.D. 09/01/16 1120 interface
--- NOTE | ~2016-08-27 | CON ---
[place], [place] REPORT OF CONSULTATION NAME: VLADISLAV GALDAMEZ UNIT #: [id number] ROOM: [facility] DOCTOR: CHAR SHARMAGABRIELA BIRTHDATE: [birth year] DOS: 08/28/2016 REQUESTING PHYSICIAN: Dr. Gilberto Dacosta. I am with [facility]. REASON FOR CONSULTATION: Elevated troponin. ASSESSMENT: 1. Current presentation with altered mental status. 2. Evidence of severe urosepsis with severe hypotension, possible septic shock, requiring pressors. 3. Chronic renal failure. 4. Diabetes. 5. Hyperlipidemia. 6. Morbid obesity. 7. Severely limited functional capacity. 8. Bilateral lower extremity edema with high probability of peripheral vascular disease. 9. Heavy tobacco abuse, almost 3 packs a day, active. 10. Coronary artery disease, reported stent placed about 4 years ago at [place], no record available at this time PLAN: 1. Normal saline 500 mL bolus. 2. Levophed for a mean systolic blood pressure less than 60. 3. Continue to cycle cardiac enzymes including troponin and add CPK-MB, at least for 3 sets. 4. Echocardiogram should be done on as soon as possible basis. 5. Ischemic workup will be considered later on. 6. Blood pressure and antibiotic will be deferred to PCP/Critical Care. 7. Obtain old records regarding the patient's previously placed stent in [place]. HISTORY OF PRESENT ILLNESS: The patient is a 66-year-old female unknown to our practice, was referred by Dr. Gilberto Dacosta for evaluation of elevated cardiac enzymes. History was obtained from the patient's who is in the room. The patient is unresponsive on BiPAP. Apparently, she was doing well yesterday morning. She had breakfast. The patient's noticed after that she started to deteriorate, becoming unresponsive and by noon, she was completely unresponsive and brought into the Emergency Room by ambulance. No reported chest pain, chest pressure, heaviness or tightness. No symptomatic palpitation or any associated dizziness, lightheadedness, or near syncope. The patient is a heavy smoker, 3 packs a day. She is severely limited functional capacity and ambulates with a walker. Have not been shopping or out the hospital in long time. She cannot drive. The patient had no further study. No further information. The patient reports fever, chills. PAST MEDICAL HISTORY: As detailed in my assessment. [place], [place] REPORT OF CONSULTATION NAME: VLADISLAV GALDAMEZ UNIT #: [id number] ROOM: [facility] DOCTOR: GABRIELA PARDO MD BIRTHDATE: [birth year] SOCIAL HISTORY: The patient continued to smoke about 3 packs, had been doing this for quite a long time. No heavy alcohol or illicit drug abuse. FAMILY HISTORY: There is no early family history of heart disease. CURRENT MEDICATIONS: On presentation include Levaquin, vancomycin, Tylenol, Nicoderm, aspirin, Amaryl, Protonix, Toprol, Cymbalta, Zanaflex, MiraLax, Lipitor. ALLERGIES: THE PATIENT IS ALLERGIC TO PENICILLIN. REVIEW OF SYSTEMS: Not performed. PHYSICAL EXAMINATION: GENERAL: The patient is sleeping on a BiPAP, unresponsive. VITAL SIGNS: Blood pressure 97/52; heart rate 108; respiratory rate of 22; temperature 101.3, T-max 103.1. NECK: No JVD. HEART: S1, S2. No rub or distant heart sounds. CHEST AND BACK: Were not examined. LUNGS: Decreased air movement, but no [place] wheezing or rales. ABDOMEN: Morbidly obese, slightly tender with deep palpitations. Unable to appreciate any masses. Present bowel sounds. LOWER EXTREMITIES: There is mild 1-2/4 edema. Unable to appreciate distal pulses. NEUROLOGIC: Not performed. SKIN: There is mild edema on both lower extremities. LABORATORY DATA: White count 21.1 with left shift, hemoglobin is 13.9. Potassium 3.3, creatinine 1.9, BUN 29, GFR is 26. Calcium 8.4. Initial troponin is 0.576, subsequent is 0.514 and then with 0.139. Chest x-ray showing no acute process or infiltrate along with no evidence of volume overload. GABRIELA PARDO MD CM:CONSTR:REPORT OF CONSULTATION 1124 08/28/16 7709 interface
--- NOTE | ~2016-08-27 | PR ---
[place], [place] PROGRESS NOTE NAME: VLADISLAV GALDAMEZ UNIT #: [id number] ROOM: [facility] DOCTOR: JUANI HATCH MD BIRTHDATE: [birth year] DOS: 08/29/2016 SUBJECTIVE: The patient remains in the ICU. She does wake up, but otherwise very lethargic. She is oriented when she wakes up and able to answer simple questions. The patient remains short of breath. Remains in the ICU. PHYSICAL EXAMINATION: VITAL SIGNS: Blood pressure 105/46, heart rate 96 beats per minute, breathing 22 times per minute, temperature 98 degrees Fahrenheit. GENERAL APPEARANCE: Lethargy, generalized weakness and obesity. HEENT AND NECK: Exam within normal limits. CARDIOVASCULAR SYSTEM: Heart rate is regular in rate and rhythm. S1 and S2 normally audible. LUNGS: Clear to auscultation. ABDOMEN: Soft, nontender. No obvious organomegaly. Bowel sounds are present. EXTREMITIES: Without significant cyanosis or edema. IMPRESSION: 1. The patient with sepsis and hypotension, hypoxemic respiratory failure and urinary tract infection is being treated and managed closely in the ICU. The patient's prognosis is guarded. 2. Acute respiratory failure, being followed by wildlife science professor, Dr. Carvajal. 3. Lethargy, apparently related to sepsis and respiratory failure and urinary tract infection. 4. Heavy gram-negative bacilli with urinary tract infection and cystitis. Final culture results are pending. The patient being followed by Infectious Disease specialist. Blood cultures are growing gram-negative bacilli. The patient still has leukocytosis of 16,700 total white cell count. 5. Positive cardiac enzymes for which the patient is being followed by Cardiology. She has been recommended a cardiac stress test after she recovers from sepsis. Case discussed with Dr. Christina Nazario, the riverine assault craft crewman today. 6. Chronic atrial fibrillation for which the patient anticoagulated with apixaban. Sepsis and hypotension being treated with Levophed IV infusion. 7. Nicotine smoke dependence. The patient smoking 3 packs of cigarettes a day at home. 8. Coronary artery disease of the [place] vessels without any chest pains. 9. Type 2 diabetes mellitus. Blood sugars have been monitored and controlled. [place], [place] PROGRESS NOTE NAME: VLADISLAV GALDAMEZ UNIT #: [id number] ROOM: [facility] DOCTOR: JUANI HATCH MD BIRTHDATE: [birth year] JUANI HATCH MD CM:PNTRANS [id number] 1 JUANI HATCH MD 08/30/16301 interface
--- NOTE | ~2016-08-27 | PROC NOTE ---
[place], [place] PROCEDURE NOTE NAME: VLADISLAV GALDAMEZ UNIT #: [id number] ROOM: 406 DOCTOR: ANNIE MARTIN MD,FRANCESCO BIRTHDATE: [birth year] DOS: 09/05/2016 PREOPERATIVE DIAGNOSIS: Severe nonproductive cough ____ expectorate sputum. POSTOPERATIVE DIAGNOSIS: Severe impaction of the mucus plug cleared out from the endobronchial tree bilaterally without any difficulty. No endobronchial obstructive lesions. COMPLICATIONS: None. PROCEDURE DESCRIPTION: Informed consent was obtained. The patient brought to the OR and placed in supine position. Conscious sedation was administered by the Anesthesia Department. After achieving appropriate sedation, airway introduced into the mouth. Bronchoscope advanced into the airway into laryngeal area. Epiglottis and vocal cords were seen. Bronchoscope advanced to the vocal cord and tracheal lumen. Tracheal lumen was noted with moderate amount of thick plugs of mucus suctioned out with the help of normal saline wash to the pita level. Right upper, right middle, right lower, left upper, lingula, lower lobe bronchi were all examined. Large plugs of the mucus present and causing partial impaction of the bronchial tree bilaterally. All secretions suctioned out clear with normal saline wash, sent for culture. Procedure was well tolerated by the patient without difficulty. Postoperative findings will be discussed with the patient. Once the patient recovered the effects of acute sedation, no immediate family members were present to discuss the findings of bronchoscopy. FRANCESCO VALENCIA MD CM:PROCNOTE:PROCEDURE NOTE 1129 [id number] FRANCESCO MARTIN MD
--- NOTE | ~2016-08-27 | PR ---
[place], [place] PROGRESS NOTE NAME: VLADISLAV GALDAMEZ UNIT #: [id number] ROOM: 406 DOCTOR: FRANCESCO NOVA MD BIRTHDATE: [birth year] DOS: 09/03/2016 PULMONARY PROGRESS NOTE SUBJECTIVE: She has been noted to be comfortably resting at this time on her bed. She has x-ray of the cervical spine done on 09/01/2016 that shows suboptimal positioning without any acute abnormalities. The patient denies any symptoms of chest pain, coughing or any sputum expectoration at this time. She would like to be discharged home. She was planned for the placement in the alf acute care facility previously, but the patient was refusing that. OBJECTIVE: VITAL SIGNS: For the patient which has been recorded shows normal temperature; respiratory rate 20; heart rate 94; blood pressure 129/72, 147/70. Pulse oxygen saturation was noted on 2 liters nasal canula 95% saturation. HEENT: Examination showed no acute changes. NECK: Supple. CARDIOVASCULAR: S1, S2 audible. LUNGS: The patient was noted without any wheezing or crackles at the present time. Breath sounds are noted mildly decreased bilaterally. ABDOMEN: Soft, nontender. LABORATORY DATA: The patient's BUN and creatinine was noted normal today. IMPRESSION: 1. The patient has been currently noted with gradual improvement in the acute hypoxic respiratory failure with improvement in mental status of the patient as well. 2. Type 2 diabetes mellitus. 3. Chronic obesity. PLAN OF TREATMENT: Continue the patient's current therapy, plan of management as previously. Other supportive plan of therapy and care as in progress. Usual care. Other treatment plan and management as in progress. [place], [place] PROGRESS NOTE NAME: VLADISLAV GALDAMEZ UNIT #: [id number] ROOM: 406 DOCTOR: FRANCESCO NOVA MD BIRTHDATE: [birth year] FRANCESCO VALENCIA MD CM:PNTRANS 29 FRANCESCO MARTIN MD 09/03/162228 interface
--- NOTE | ~2016-08-27 | PR ---
[place], [place] PROGRESS NOTE NAME: VLADISLAV GALDAMEZ UNIT #: [id number] ROOM: 406 DOCTOR: FRANCESCO NOVA MD BIRTHDATE: [birth year] DOS: 09/02/2016 PULMONARY FOLLOWUP SUBJECTIVE: She has been noted comfortable at this time without any distress at this time. She was complaining of pain in the neck and the lower back. Respiratory saleh, doing very well. Denies any acute shortness of breath. OBJECTIVE: VITAL SIGNS: Normal temperature, respiratory rate 20, heart rate 97, blood pressure 126/78. The pulse oxygen saturation of the patient noted on 2 liters nasal cannula 96% saturation. HEENT: Showed no new change. NECK: Supple. CARDIOVASCULAR: S1, S2 audible. LUNGS: Noted without any wheezing or crackles. ABDOMEN: Soft and nontender. LABORATORY DATA: No labs were done today. IMPRESSION: 1. The patient with stable respiratory status, resolving. Good change in mental status, acute hypoxic respiratory failure patient. 2. Atrial fibrillation as well. 3. Type 2 diabetes mellitus as well. 4. Chronic wound of the left lower extremity. 5. Acute urinary tract infection and acute sepsis. The patient has been improving. PLAN OF MANAGEMENT: No changes from the pulmonary standpoint. The patient has been noted stable at this time. Will be continued on the current medical management. Usual care. Supportive therapy, other plan of care as in progress. Usual medical management and treatments. [place], [place] PROGRESS NOTE NAME: VLADISLAV GALDAMEZ UNIT #: [id number] ROOM: 406 DOCTOR: FRANCESCO NOVA MD BIRTHDATE: [birth year] FRANCESCO VALENCIA MD CM:PNTRANS 1404 0028 FRANCESCO MARTIN MD 09/03/16 0027 interface
--- NOTE | ~2016-08-27 | PR ---
[place], [place] PROGRESS NOTE NAME: VLADISLAV GALDAMEZ UNIT #: [id number] ROOM: 406 DOCTOR: GABRIELA PARDO MD BIRTHDATE: [birth year] DOS: 09/01/2016 SUBJECTIVE: The patient is out of the Intensive Care Unit, sitting up in chair, reporting again further improvement of her shortness of breath. No specific cardiac complaint. No chest pain. No chest pressure. PHYSICAL EXAMINATION: VITAL SIGNS: Blood pressure 133/87, heart rate 101, respiratory rate of 20, temperature 98.3. NECK: Good upstroke. No bruit. HEART: S1, S2 with a systolic ejection murmur at the right upper sternal border. LUNGS: Significant decreased air movement, but no [place] wheezing or rales. ABDOMEN: Morbidly obese with present bowel sounds. EXTREMITIES: Lower extremities, edema present. LABORATORY DATA: None done from today. Please refer to my previous notes for yesterday's labs. ASSESSMENT AND PLAN: 1. Presentation with sepsis, requiring pressors. The patient has improved, continues to be on antibiotics. 2. Elevated cardiac enzymes that most likely not rental sales representative of ischemic event. 3. Ischemic workup will be pursued as an outpatient with a stress test. 4. Aggressive cardiac risk modification. 5. Increase Toprol and stop digoxin. 6. Further titration of beta lidya will be done in a.m., should the patient be still in the hospital. GABRIELA PARDO MD CM:PNTRANS 1 41 GABRIELA PARDO MD 09/01/16 224 interface
--- NOTE | ~2016-08-27 | PR ---
[place], [place] PROGRESS NOTE NAME: VLADISLAV GALDAMEZ UNIT #: [id number] ROOM: 406 DOCTOR: JUANI HATCH MD BIRTHDATE: [birth year] DOS: 09/05/2016 PHYSICAL EXAMINATION: GENERAL APPEARANCE: The patient is alert and oriented x 3, in no visible distress. Obesity. VITAL SIGNS: Heart rate of 90 beats per minute, breathing 17 times per minute, temperature 99 degrees Fahrenheit. HEENT AND NECK: Exam within normal limits. CARDIOVASCULAR SYSTEM: Heart rate is regular in rate and rhythm. S1 and S2 normally audible. LUNGS: Clear to auscultation. ABDOMEN: Soft, nontender. No obvious organomegaly. Bowel sounds are present. EXTREMITIES: Without significant cyanosis or edema. IMPRESSION: The patient was to be seen by Dr. Chastity De Jesus who was covering for me yesterday, but apparently because of some technical error with the electronic health records, the patient's name did not print up on Dr. De Jesus' list and the patient was believed to be discharged and was not seen by her, but the patient was seen by Dr. Carvajal and Dr. Leach, the personnel placement specialist. 1. The patient improved from severe sepsis and hypotension, is doing well now. Vital signs have normalized. 2. Atrial fibrillation with rapid ventricular response, now well controlled with digoxin. 4. Acute over chronic respiratory failure, resolved. 5. Obesity, generalized weakness and adult failure to thrive. The patient waiting to be transferred to [facility]; manager social media are working on this. 6. Type 2 diabetes mellitus. Blood sugars are monitored and treated. The patient with bilateral left leg ulceration being followed by perinatal specialist, Dr. Platt. 7. Type 2 myocardial injury, evaluated and followed by Cardiology. 8. The patient back in sinus rhythm now, so I will discontinue digoxin. 9. Coronary artery disease of [place] vessels without chest pains. 10. Urinary tract infection with Escherichia coli and sepsis with positive blood cultures with Escherichia coli, treated and resolved. [place], [place] PROGRESS NOTE NAME: VLADISLAV GALDAMEZ UNIT #: [id number] ROOM: 406 DOCTOR: JUANI HATCH MD BIRTHDATE: [birth year] JUANI HATCH MD CM:FLORINDA [phone] 45 JUANI HATCH MD 09/05/16 2345 interface
--- NOTE | ~2016-08-27 | PR ---
[place], [place] PROGRESS NOTE NAME: VLADISLAV GALDAMEZ UNIT #: [id number] ROOM: [facility] DOCTOR: FRANCESCO NOVA MD BIRTHDATE: [birth year] DOS: 08/31/2016 SUBJECTIVE: She has been noted much more awake and alert this morning, sitting on the chair, using oxygen supplementation with nasal cannula and eating breakfast. The shortness of breath has been noted improving. OBJECTIVE: VITAL SIGNS: Showed normal temperature, respiratory rate 22, heart rate 100, blood pressure 125/65. Intake 1120 mL, output 1300 mL. Pulse oxygen saturation on 50% Ventimask was 98% saturation with BiPAP 97% saturation. HEENT: Shows no new change. NECK: Supple. CARDIOVASCULAR: S1, S2 audible. LUNGS: Without any wheezing or crackles at the present time. Breaths are noted generally decreased bilaterally. ABDOMEN: Soft, obese and nontender. LABORATORY DATA: BMP: BUN 31, creatinine 1.32, glucose 53, potassium 3.1. IMPRESSION: 1. The patient has been noted with continued improvement in the acute respiratory failure with hypoxia. 2. History of aortic stenosis was also noted with possibility of congestive heart failure superimposed as well. 3. Hypertension, which is improving. 4. Acute urinary tract infection with gram-negative bacilli bacteremia as well. The origin of the sepsis was noted from urinary tract infection with Escherichia coli. PLAN OF TREATMENT: Continue the BiPAP with oxygen supplementation. She has been noted chronic wound of the left lower extremity, which has been also managed on this admission. The patient may be considered a candidate for long-term acute care facility as well. Try to adopt the ____ with improvement in the blood pressure. Other supportive therapy, plan of management. Continue usual care. Other treatment and therapies as in progress. [place], [place] PROGRESS NOTE NAME: VLADISLAV GALDAMEZ UNIT #: [id number] ROOM: [facility] DOCTOR: FRANCESCO NOVA MD BIRTHDATE: [birth year] FRANCESCO VALENCIA MD CM:PNTRANS [id number] FRANCESCO MARTIN MD 08/31/16 1241 interface
--- NOTE | ~2016-08-27 | PR ---
[place], [place] PROGRESS NOTE NAME: VLADISLAV GALDAMEZ UNIT #: [id number] ROOM: [facility] DOCTOR: JUANI HATCH MD BIRTHDATE: [birth year] DOS: SUBJECTIVE: The patient is more awake and alert today and getting a PICC line placed for better IV access. OBJECTIVE: VITAL SIGNS: Blood pressure 114/71, heart rate of 111 beats per minute, breathing 27 times per minute, temperature 98.1 degrees Fahrenheit. GENERAL APPEARANCE: Except for generalized weakness and morbid edema. HEENT AND NECK: Exam within normal limits. CARDIOVASCULAR SYSTEM: Heart rate is regular in rate and rhythm. S1 and S2 normally audible. LUNGS: Clear to auscultation. ABDOMEN: Soft, nontender. No obvious organomegaly. Bowel sounds are present. EXTREMITIES: Without significant cyanosis or edema. IMPRESSION: 1. The patient with acute atrial fibrillation, being managed by Cardiology. 2. Sepsis with Escherichia coli, now growing in blood cultures and urine cultures both, sensitive to all antibiotics. The patient is being treated with ceftriaxone. Infectious Disease specialists are following. 3. Type 2 diabetes mellitus. Blood sugars being monitored and treated. 4. Coronary artery disease of the [place] vessels without any angina symptoms. 5. History of chronic atrial fibrillation. The patient anticoagulated with apixaban. 6. Lethargy and generalized weakness, improving. The patient more awake, alert and oriented this morning. Apparently mental status change secondary to sepsis. 7. Hypotension secondary to sepsis, improving slowly. JUANI HATCH MD CM:PNTRANS 1611 [id number] JUANI HATCH MD 08/31/16 0523 interface
--- NOTE | ~2016-08-27 | PR ---
[place], [place] PROGRESS NOTE NAME: [facility]DAMEZ [id number] UNIT #: [id number] ROOM: 406 DOCTOR: KATELYN RUDD MD BIRTHDATE: [birth year] DOS: 09/03/2016 SUBJECTIVE: The patient was seen at her bedside today 09/03/2016 for followup of coronary artery disease and elevated troponin. She is a morbidly obese diabetic woman who has a history of hyperlipidemia and heavy tobacco abuse. Reportedly, she has had a cardiac catheterization and stenting done 4 years ago in [place]; however, the records are not currently available. She presented to the hospital on this occasion with altered mental status and urosepsis with hypotension that required pressors. She was treated aggressively and has improved. When seen today, she was sitting up in a chair at the side of her bed. She had multiple complaints including neck pain, back pain and fatigue. PHYSICAL EXAMINATION: GENERAL: She is a morbidly obese white female who is awake, alert and oriented. VITAL SIGNS: Pulse is 100 and regular, blood pressure is 159/86. She is afebrile. She weighs 113.4 kilograms with a body mass index of 41.6. NECK: Supple. She has no jugular distention. Carotids are full. LUNGS: Respirations are labored at rest. She does have expiratory prolongation with bilateral wheezes and rhonchi. She had no rales. She had no presacral edema. HEART: Had a regular rhythm. She had a fourth heart sound, but no obvious third heart sound. Heart tones are distant. ABDOMEN: Obese, but otherwise benign. EXTREMITIES: Showed 3+ edema bilaterally. She has her legs wrapped bilaterally. Monitor shows sinus rhythm and sinus tachycardia. Hemoglobin on 08/30/2016 was 12.3 with a white count of 12,700. BUN today was 16 with a creatinine is 0.74. IMPRESSION: 1. Presentation with urinary tract sepsis. The patient has improved. 2. Severe obstructive lung disease, status post acute hypoxic respiratory failure. 3. Type 2 diabetes mellitus. 4. Diabetic ulcerations of the legs. 5. Elevated cardiac enzymes this admission, possibly due to type 2 myocardial injury, underlying acute coronary syndrome cannot be ruled out at this time. PLAN: I would continue aggressive cardiac risk modification. The patient should never smoke again and she should work very hard on increasing her exercise capacity, weight loss, etc. She will remain on rivaroxaban for atrial fibrillation and stroke prophylaxis. In general, from a cardiac standpoint, she has improved and plans are being made for her to transfer to an LTAC for further care. We will continue to follow her intermittently while she is hospitalized and we thank Dr. Dacosta for asking our advice regarding her care. [place], [place] PROGRESS NOTE NAME: VLADISLAV GALDAMEZ UNIT #: [id number] ROOM: 406 DOCTOR: KATELYN RUDD MD BIRTHDATE: [birth year] KATELYN RUDD MD CM:FLORINDA [phone] 45 KATELYN RUDD MD 09/03/16 2245 interface
--- NOTE | ~2016-08-27 | PR ---
[place], [place] PROGRESS NOTE NAME: VLADISLAV GALDAMEZ UNIT #: [id number] ROOM: 406 DOCTOR: GABRIELA PARDO MD BIRTHDATE: [birth year] DOS: ADDENDUM ASSESSMENT AND PLAN: 1. Septic shock. 2. Atrial fibrillation. Heart rate appears to be much better controlled now on Toprol-XL b.i.d. Aspirin and Lovenox will be stopped and Xarelto will be initiated 20 mg daily. We will pursue possible RADHA cardioversion in 3 weeks. Early followup with us within 3-4 weeks as an outpatient. GABRIELA PARDO MD CM:PNTRANS 0934 0011 GABRIELA PARDO MD 09/02/16 0010 interface
--- NOTE | ~2016-08-27 | PR ---
[place], [place] PROGRESS NOTE NAME: VLADISLAV GALDAMEZ UNIT #: [id number] ROOM: 406 DOCTOR: FRANCESCO NOVA MD BIRTHDATE: [birth year] DOS: 09/01/2016 SUBJECTIVE: She has been transferred to telemetry floor from the intensive care unit, noted awake and alert, using oxygen supplementation nasal cannula. The coughing has been noted decreased. There were no symptoms of chest pain. Shortness of breath was also noted somewhat decreased as well. OBJECTIVE: VITAL SIGNS: Which has been recorded showed the temperature noted as normal. The respiratory rate recorded as 22, heart rate 101, blood pressure 132/87. Intake of 860, output was 1350 mL, negative fluid balance of 490 mL. Pulse ox saturation on 4 liters nasal cannula 97% saturation. HEENT: No new change. NECK: Supple. CARDIOVASCULAR: S1, S2 audible. LUNGS: No wheezing or crackles. ABDOMEN: Soft, nontender. LABORATORY DATA: The BMP was noted to be BUN 31, creatinine 1.32, glucose 153, potassium 3.1. IMPRESSION: 1. Improving acute severe hypoxic respiratory failure. 2. Acute congestive heart failure was also noted. 3. The patient with improvement in mental status. 4. Acute wound of the left lower extremity is well managed by the Wound management. PLAN OF TREATMENT: Agreeable for the assessment and transferred to the LTAC. In the meantime, continue the patient on current therapy, plan of management as in progress. Usual care. All other supportive plan of management and treatment. Further change in treatment will be done based on the progression of the illness. [place], [place] PROGRESS NOTE NAME: VLADISLAV GALDAMEZ UNIT #: [id number] ROOM: 406 DOCTOR: FRANCESCO NOVA MD BIRTHDATE: [birth year] FRANCESCO VALENCIA MD CM:PNTRANS [id number] FRANCESCO MARTIN MD 09/01/16 1214 interface
--- NOTE | ~2016-08-27 | PR ---
[place], [place] PROGRESS NOTE NAME: VLADISLAV GALDAMEZ UNIT #: [id number] ROOM: 406 DOCTOR: ANNIE MARTIN MD,FRANCESCO BIRTHDATE: [birth year] DOS: 09/08/2016 SUBJECTIVE: The patient stated that she will be discharged home today. She has been noted to be comfortable at this time, sitting on her bed. Denies symptoms of chest pain or any abdominal pain. OBJECTIVE: VITAL SIGNS: Temperature normal, respiratory rate 18, heart rate 79 and blood pressure 119/57. HEENT: Shows no acute change. NECK: Supple. CARDIOVASCULAR: S1, S2 is audible. LUNGS: Without any wheezing or crackles at the present time. ABDOMEN: Soft, nontender. IMPRESSION: 1. The patient has continued improvement and resolution noted of acute hypoxic respiratory failure progressively with acute exacerbation of chronic obstructive pulmonary disease. 2. Left lower extremity wound was also noted. PLAN OF TREATMENT: No changes from the pulmonary standpoint. Outpatient follow up could be done for the patient after discharge. FRANCESCO VALENCIA MD CM:PNTRANS [phone] FRANCESCO MARTIN MD 09/08/16 1051 interface
--- NOTE | ~2016-08-27 | PR ---
[place], [place] PROGRESS NOTE NAME: VLADISLAV GALDAMEZ UNIT #: [id number] ROOM: [facility] DOCTOR: ANNIE MARTIN MD,FRANCESCO BIRTHDATE: [birth year] DOS: 08/30/2016 PULMONARY FOLLOWUP SUBJECTIVE: She has been noted more awake this morning. She is using oxygen supplementation with 50% Venturi mask. It is a struggle to use the BiPAP for the patient at times. Blood culture was also noted positive for gram-negative bacilli for this patient as well from the blood cultures as E. coli isolated. She has not been noted with any acute new hemodynamic instability at this time. The patient denies any cough or chest pain. OBJECTIVE: VITAL SIGNS: Blood pressure 102/63-109/80, the respiratory rate recorded as 25, heart rate 112, temperature was normal. The oxygen saturation of the patient on 50% Venturi mask was noted as 90%, with BiPAP as 98% saturation. HEENT: Examination showed head was atraumatic. Eyes nonicterus. NECK: Supple. CARDIOVASCULAR: S1, S2 audible. LUNGS: Noted without any crackles at this time. ABDOMEN: Soft and nontender. EXTREMITIES: The patient was noted with mild edema. The patient has chronic obesity. Lower extremities: The patient has been wrapped with a bandage. LABORATORY DATA: BMP of the patient this morning shows BUN 31, creatinine 1.77. Glucose was normal. Potassium 3.0. Urine culture was noted with E. coli for this patient having gross pansensitive organism. Blood cultures of both bottles of the patient on 11 of this month was noted with E. coli with similar sensitivity results. Chest x-ray of the patient that was done this morning shows evidence of congestive heart failure. IMPRESSION: 1. The patient has been currently noted with acute hypoxic respiratory failure as well. 2. Chronic obstructive pulmonary disease. 3. Congestive heart failure. 4. Bacteremia with sepsis secondary to acute urinary tract infection as well. 5. Hypotension secondary to acute sepsis as well. 4. Chronic obesity. 5. Wound of the left lower extremity. 6. Acute kidney injury as well. PLAN OF TREATMENT: Bronchodilators with the patient's oxygen supplementation and diuretic therapy. Continue current antibiotics based on the sensitivity results. Monitor the hemodynamics of the patient closely. Continue other supportive therapy, plan of management, continue as in progress the patient's usual care. Other plan of management for this patient as in progress. Usual care. Other supportive plan of therapy as well. Further treatment changes will be done based on the progression of the illness. [place], [place] PROGRESS NOTE NAME: VLADISLAV GALDAMEZ UNIT #: [id number] ROOM: [facility] DOCTOR: FRANCESCO NOVA MD BIRTHDATE: [birth year] FRANCESCO VALENCIA MD CM:PNTRANS [phone] FRANCESCO MARTIN MD 08/30/16 2219 interface
--- NOTE | ~2016-08-27 | PR ---
[place], [place] PROGRESS NOTE NAME: VLADISLAV GALDAMEZ UNIT #: [id number] ROOM: 406 DOCTOR: ANNIE MARTIN MD,FRANCESCO BIRTHDATE: [birth year] DOS: 09/04/2016 SUBJECTIVE: She has been noted to have cough which has been described quite severe for the patient in the last 24 hours. She has not been able to expectorate sputum. Denies symptoms of acute shortness of breath. Denies symptoms of chest pain. OBJECTIVE: VITAL SIGNS: Show the temperature to be normal, respiratory rate 20, heart rate 94, blood pressure 124/70. The pulse oxygen saturation noted on 4.5 L nasal cannula is 94% saturation. HEENT: Shows no acute change. NECK: Supple. CARDIOVASCULAR: S1, S2 audible. LUNGS: The patient is noted without any wheezing or crackles. The breath sounds are noted to be mildly decreased bilaterally. ABDOMEN: Soft, nontender. IMPRESSION: 1. Severe nonproductive cough with acute exacerbation of chronic obstructive pulmonary disease, acute tracheobronchitis. 2. Chronic obesity. PLAN OF TREATMENT: The patient has been ordered and considered for bronchoscopy in the morning. In the meantime, continue other previous therapy, plan of management. Bronchoscopy will be therapeutic to result in improvement in the mucous clearance. The patient had removal of mucus plug resulting in improvement in the cough. FRANCESCO VALENCIA MD CM:PNTRANS [phone] FRANCESCO MARTIN MD 09/04/16 1116 interface
--- NOTE | ~2016-08-27 | PR ---
[place], [place] PROGRESS NOTE NAME: VLADISLAV GALDAMEZ UNIT #: [id number] ROOM: 406 DOCTOR: FRANCESCO NOVA MD BIRTHDATE: [birth year] DOS: 09/05/2016 PULMONARY FOLLOWUP SUBJECTIVE: She is n.p.o. past midnight. Bronchoscopy still noted severe nonproductive cough. Denies symptoms of chest pain except occurs with a coughing in the left side of the chest. The patient does not have symptoms of hemoptysis. OBJECTIVE: VITAL SIGNS: Normal temperature, respiratory rate 18, heart rate 90, blood pressure 147/79. HEENT: Showed no acute change. NECK: Supple. CARDIOVASCULAR: S1, S2 audible. LUNGS: Moderate decreased breath sounds noted with scattered wheezing, no crackles. ABDOMEN: Soft, obese, nontender. LABORATORY DATA: PT/PTT was done yesterday shows INR 1.5. PTT normal. Platelet function assay was normal. CBC this morning, hemoglobin 11.6, hematocrit 35.6, platelet count was normal, WBC count normal. BMP this morning, normal BUN, creatinine and electrolytes. Digoxin level noted therapeutic as well. IMPRESSION: 1. The patient has stable respiratory status noted at this time with persistent ineffective cough. 2. Acute hypoxic respiratory failure, chronic hypoxic respiratory failure. 3. Chronic obesity. PLAN OF TREATMENT: No changes in the plan of management, proceed to bronchoscopy as planned. Further treatment changes to be done based on progression of illness. Usual medical therapy, plan of care. [place], [place] PROGRESS NOTE NAME: VLADISLAV GALDAMEZ UNIT #: [id number] ROOM: 406 DOCTOR: FRANCESCO NOVA MD BIRTHDATE: [birth year] FRANCESCO VALENCIA MD CM:PNTRANS [id number] FRANCESCO MARTIN MD 09/05/16 1330 interface
--- NOTE | ~2016-08-27 | WRIGHTHP ---
[place], [place] PATIENT HISTORY AND PHYSICAL EXAM NAME[id number] UN[facility] #: [id number] ROOM: [facility] DOCTOR: JUANI HATCH MD BIRTHDATE: [birth year] DOS: 08/27/2016 HISTORY OF PRESENT ILLNESS: The patient is a 66-year-old female with history of: 1. Advanced end-stage chronic obstructive pulmonary disease with chronic respiratory failure. 2. Smokes 3 packs of cigarettes daily. 3. Severe aortic stenosis requiring heart catheterization and valve replacement. 4. Coronary artery disease of the [place] vessel, status post heart catheterization and stent placement in 2013. 5. Paroxysmal atrial fibrillation, anticoagulated. 6. Benign essential hypertension. 7. Type 2 diabetes mellitus. 8. Severe peripheral polyneuropathy, diabetic. 9. Mixed hyperlipidemia. 10. Major depression, recurrent. The patient presented to the Emergency Department with 1-day complaints of increasing shortness of breath, lethargy and mental confusion and increased weakness. The patient was evaluated in the Emergency Department and found to have urinary tract infection. The patient also had high-grade fever of 103 degrees Fahrenheit and she was tachycardic up to 120 beats per minute. After initial treatment in the Emergency Department, the patient was admitted and she was found to have elevated troponin I levels. The patient admitted to the ICU with a stat consult with Cardiology and loft worker apprentice, Dr. Carvajal. The patient was hydrated slowly in the ICU and she developed some increasing rhonchi, so the IV fluids were stopped. The patient is being started on BiPAP to help with her breathing. No complaints of any chest pains. No other GI or urinary symptoms. REVIEW OF SYSTEMS: LUNGS: No increasing shortness of breath at home, but the patient is chronically short of breath. CARDIOVASCULAR SYSTEM: No chest pains or palpitations. GASTROINTESTINAL: No nausea, vomiting, diarrhea, constipation. FAMILY HISTORY: Noncontributory. SOCIAL HISTORY: Smokes 3 packs of cigarettes a day. Denies any drug or alcohol abuse. ALLERGIES: KNOWN ALLERGIES TO PENICILLIN. HOME MEDICATIONS: Aspirin, glimepiride, Protonix, metoprolol, Cymbalta, Zanaflex, MiraLax, Lipitor. PHYSICAL EXAMINATION: GENERAL: The patient is lethargic but does wake up in somewhat short of breath, but in no distress. Obesity. VITAL SIGNS: Blood pressure 114/70, heart rate of 114 beats per minute, [place], [place] PATIENT HISTORY AND PHYSICAL EXAM NAME: VLADISLAV GALDAMEZ UNIT #: [id number] ROOM: [facility] DOCTOR: JUANI HATCH MD BIRTHDATE: [birth year] breathing 26 times per minute, temperature going up to 103 degrees Fahrenheit. HEENT AND NECK: Extraocular movements are intact. Sclerae are anicteric. Oral mucosa is moist and clean. No obvious facial weakness. Neck is supple without any lymphadenopathy. No thyromegaly. No JVD. No carotid arterial bruits. LUNGS: Clear to auscultation, somewhat decreased breath sounds all over. No wheezing. No rhonchi. CARDIOVASCULAR SYSTEM: Heart rate is regular in rate and rhythm. S1 and S2 normally audible. No significant murmur or any other abnormal cardiac sounds. ABDOMEN: Soft, nontender. No obvious organomegaly. Bowel sounds are present. No obvious herniation. EXTREMITIES: Without significant cyanosis or edema. Warm to touch. CENTRAL NERVOUS SYSTEM: Alert and oriented x 3. Cranial nerves II-XII are intact. Speech is normal. The patient is able to move all extremities. Normal muscle strength. Deep tendon reflexes are equal on both sides. Plantars were downgoing. LABORATORY DATA: White cell count of 21,000 and normal CBC. Blood gases showed a pH of 7.48, pCO2 of 32, pO2 66. BUN and creatinine 29 and 1.9. Potassium level low at 3.3. Troponin I level elevated at 0.5. Chest x-ray showed no acute process. IMPRESSION: 1. The patient presenting with sepsis, high-grade fevers, leukocytosis, and now progressively getting hypotensive. The patient appears to be in severe sepsis and is being closely monitored in the ICU. The patient already started on IV Levaquin and orientation and mobility specialist, Dr. Carvajal has been consulted along with media job titles, Dr. Diego Leach and the patient is being followed closely. Case was discussed with patient's who was present with her in the ICU this morning. 2. Positive cardiac enzymes, which may be secondary to patient being critically sick and sepsis, but Cardiology have been consulted on an urgent basis to manage her cardiac condition and hypotension now. The patient was started on hydration, normal saline, but was stopped because of progressive lung congestion. The patient does have previous history of aortic stenosis with a valve replacement. 3. Chronic atrial fibrillation for which patient already anticoagulated with apixaban, which has been continued. 4. Type 2 diabetes mellitus. Monitor blood sugars and treat accordingly. The patient's blood sugars have been well controlled, so far. 5. Severe leukocytosis, apparently secondary to sepsis. 6. Nicotine smoke dependence. The patient still smokes 3 packs of cigarettes a day against medical advice. 7. History of coronary artery disease of the [place] vessels without recent angina symptoms. [place], [place] PATIENT HISTORY AND PHYSICAL EXAM NAME: VLADISLAV GALDAMEZ UNIT #: [id number] ROOM: [facility] DOCTOR: HOLDEN SHARMA,JUANI Douglass BIRTHDATE: [birth year] JUANI HATCH MD CM:HISPHYS:PATIENT HISTORY AND PHYSICAL EXAMINATION [phone] JUANI HATCH MD 08/28/16 1252 interface
--- NOTE | ~2016-08-27 | PR ---
[place], [place] PROGRESS NOTE NAME: VLADISLAV GALDAMEZ UNIT #: [id number] ROOM: 406 DOCTOR: JUANI HATCH MD BIRTHDATE: [birth year] DOS: 09/03/2016 SUBJECTIVE: The patient continues to feel better, but she is complaining of pain and says she takes Percocet every 4 hours rather than every 6 hours. Pain and stiffness in her neck is also improving. OBJECTIVE: VITAL SIGNS: Blood pressure 159/86, heart rate of 101 beats per minute, breathing normally, afebrile. GENERAL: Generalized weakness and obesity with bilateral leg wounds, which are chronic. HEENT AND NECK: Exam within normal limits. CARDIOVASCULAR SYSTEM: Heart rate is regular in rate and rhythm. S1 and S2 normally audible. LUNGS: Clear to auscultation. ABDOMEN: Soft, nontender. No obvious organomegaly. Bowel sounds are present. EXTREMITIES: Without significant cyanosis or edema. IMPRESSION: 1. Acute hypoxemic respiratory failure. The patient continues to improve. 2. Chronic wounds in both legs, being followed by instructional support specialist and being dressed and treated. 3. Urinary tract infection with E. coli and blood cultures positive for E. coli, meaning severe sepsis, which is resolving with treatment with antibiotics. 4. Adult failure to thrive, morbid obesity. We are taking bed sore and fall precautions and patient is waiting for transfer to correction facility for rehabilitation. 5. Coronary artery disease of the [place] vessels without chest pains. 6. Type 2 diabetes mellitus. Blood sugars being monitored and treated. 7. Chronic atrial fibrillation with controlled heart rates with addition of digoxin, now heart rate is ranging between 86 beats per minute to 100 beats per minute, much better controlled. JUANI HATCH MD CM:PNTRANS [id number] JUANI HATCH MD 09/03/16 2214 interface
--- NOTE | ~2016-08-27 | PR ---
[place], [place] PROGRESS NOTE NAME: VLADISLAV GALDAMEZ UNIT #: [id number] ROOM: 406 DOCTOR: JUANI HATCH MD BIRTHDATE: [birth year] DOS: 09/08/2016 SUBJECTIVE: The patient unable to go to any [facility] facility because she does not want to go there and her insurance is also not allowing any transfer to [facility] and after trying for more than a week to try and place her to first an LTAC and later on [facility] facility, I have no option but to send her home with her who initially was quite reluctant to take her home because of her advanced disability but now he has agreed. OBJECTIVE: VITAL SIGNS: Blood pressure 119/57, heart rate 79 beats per minute, breathing 18 times per minute, temperature 98.3 degrees Fahrenheit. GENERAL APPEARANCE: Morbid obesity, generalized weakness and failure to thrive. HEENT AND NECK: Exam within normal limits. CARDIOVASCULAR SYSTEM: Heart rate is regular in rate and rhythm. S1 and S2 normally audible. LUNGS: Clear to auscultation. ABDOMEN: Soft, nontender. No obvious organomegaly. Bowel sounds are present. EXTREMITIES: Without significant cyanosis or edema. IMPRESSION: 1. Sepsis, hypotension, tachycardia, fever, positive blood cultures for Escherichia coli in blood and urine, all treated adequately with antibiotics and sepsis has resolved. 2. Acute atrial fibrillation converted back to normal sinus rhythm with controlled heart rate. 3. Type 2 diabetes mellitus. 4. Coronary artery disease of [place] vessel without chest pain. 5. Urinary tract infection with Escherichia coli, treated and cystitis. 6. Morbid obesity, BMI of 41.6, the patient worked with dietary. 7. Stasis dermatitis in both legs, chronic. 8. Poor health and failure to thrive. JUANI HATCH MD CM:PNTRANS [phone] JUANI HATCH MD 09/12/16 0415 interface
[2016-08-27 17:32] VITALS: BP 137/74
[2016-08-27 18:12] LABS: HEMATOCRIT 44.7 % (37.0-47.0); HEMOGLOBIN 14.7 g/dl (12.0-16.0); MEAN CELL VOLUME 94.3 fl (81.0-99.0); MEAN CORPUSCULAR HGB CONC 32.9 g/dl (33.0-37.0); MEAN PLATELET VOLUME 10.9 fl (9.6-12.3); PLATELET COUNT AUTOMATED 127 10*3/uL (130-400); RED BLOOD COUNT 4.74 10*6/uL (4.10-5.10); RED CELL DISTRI WIDTH 13.3 % (0-14.5); WHITE BLOOD COUNT 6.6 10*3/uL (4.8-10.8)
[2016-08-27 18:28] LABS: INTERNATIONAL NORM RATIO 1.1 (2.0-3.5); PROTHROMBIN TIME 11.7 SECONDS (9.0-12.4)
[2016-08-27 18:29] LABS: ALBUMIN 2.9 gm/dl (3.1-4.5); BILIRUBIN, TOTAL 0.7 mg/dl (0.2-1.0); POTASSIUM 3.5 mmol/L (3.5-5.1); TOTAL PROTEIN 6.6 gm/dL (6.4-8.2)
[2016-08-27 18:32] LABS: BILIRUBIN NEGATIVE (NEGATIVE); BLOOD 2+ (NEGATIVE); CLARITY SL CLOUDY (CLEAR); COLOR YELLOW (YELLOW); GLUCOSE NEGATIVE (NEGATIVE); KETONE NEGATIVE (NEGATIVE); LEUKO ESTERASE 3+ (NEGATIVE); NITRITE POSITIVE (NEGATIVE); PROTEIN TRACE (NEGATIVE); SPECIFIC GRAVITY 1.015 (1.005-1.030); UROBILINOGEN 0.2 E.U./dl (0.2-1.0)
[2016-08-27 18:40] LABS: TROPONIN I 0.139 ng/ml (<0.045)
[2016-08-27 18:48] LABS: LYMPHOCYTE # 0.4 10*3/uL (1.3-4.4); NEUTROPHIL # 6.2 10*3/uL (2.3-7.9); NEUTROPHILS 94 % (47-73); POLYCHROMASIA SLIGHT; TOTAL CELLS COUNTED 100 #CELLS
[2016-08-27 18:49] LABS: PLATELET SUFFICIENCY NORMAL (NORMAL)
[2016-08-27 18:50] LABS: BACTERIA 4+; MUCOUS TRACE; RBC TNTC rbc/hpf (0-2); URINE REFLEX COMMENT YES (NO); WBC TNTC wbc/hpf (0-5)
[2016-08-27 18:52] VITALS: BP 136/84
[2016-08-27 19:05] VITALS: BP 136/84
[2016-08-27 20:09] LABS: LA>2 REFLEX 2 HR DRAW NOW
[2016-08-27 20:12] VITALS: BP 114/56
[2016-08-27 20:45] VITALS: BP 116/68
[2016-08-27 21:07] LABS: ABG BASE EXCESS 0.6 mmol/L (-2.0-2.0); ABG CO2 CONTENT 25.3 mmol/L (23-27); ABG HCO3 24.1 mmol/l (22-26); ABG TEMPERATURE 98.6 F (98.0-99.0); ARTERIAL BLOOD GAS PH 7.428 (7.35-7.45)
[2016-08-27 21:35] VITALS: BP 117/71
[2016-08-28] VITALS (36 sets, daily range): BP systolic 75–147; BP diastolic 34–96
[2016-08-28 05:42] LABS: POTASSIUM 3.3 mmol/L (3.5-5.1)
[2016-08-28 06:08] LABS: HEMATOCRIT 42.2 % (37.0-47.0); HEMOGLOBIN 13.9 g/dl (12.0-16.0); MEAN CELL VOLUME 94.2 fl (81.0-99.0); MEAN CORPUSCULAR HGB CONC 32.9 g/dl (33.0-37.0); MEAN PLATELET VOLUME 11.2 fl (9.6-12.3); NUCLEATED RED BLOOD CELL 0.1 % (0.0-0.0); PLATELET COUNT AUTOMATED 126 10*3/uL (130-400); RED BLOOD COUNT 4.48 10*6/uL (4.10-5.10); RED CELL DISTRI WIDTH 13.5 % (0-14.5); WHITE BLOOD COUNT 21.1 10*3/uL (4.8-10.8)
[2016-08-28 06:37] LABS: ABG BASE EXCESS 1.8 mmol/L (-2.0-2.0); ABG CO2 CONTENT 24.7 mmol/L (23-27); ABG HCO3 23.7 mmol/l (22-26); ABG TEMPERATURE 100.7 F (98.0-99.0); ARTERIAL BLOOD GAS PH 7.483 (7.35-7.45); ARTERIAL BLOOD GAS PO2 66.4 mmHg (80-90)
[2016-08-28 06:39] LABS: ATYPICAL LYMPHS 1 % (0-0); LYMPHOCYTE # 0.2 10*3/uL (1.3-4.4); METAMYELOCYTES 2 % (0-0); MONOCYTE # 0.6 10*3/uL (0.1-1.0); NEUTROPHIL # 19.8 10*3/uL (2.3-7.9); NEUTROPHILS 94 % (47-73); TOTAL CELLS COUNTED 100 #CELLS
[2016-08-28 06:40] LABS: PLATELET SUFFICIENCY LOW (NORMAL); TOXIC GRANULATION SLIGHT
[2016-08-28 19:06] LABS: CKMB 2.1 ng/ml (0.5-3.6)
[2016-08-28 19:08] LABS: TROPONIN I 0.262 ng/ml (<0.045)
[2016-08-29] VITALS (54 sets, daily range): BP systolic 11–131; BP diastolic 43–95
[2016-08-29 05:59] LABS: HEMATOCRIT 38.8 % (37.0-47.0); HEMOGLOBIN 12.9 g/dl (12.0-16.0); MEAN CELL VOLUME 92.6 fl (81.0-99.0); MEAN CORPUSCULAR HGB 30.8 pg (27.0-31.0); MEAN CORPUSCULAR HGB CONC 33.2 g/dl (33.0-37.0); MEAN PLATELET VOLUME 11.1 fl (9.6-12.3); PLATELET COUNT AUTOMATED 106 10*3/uL (130-400); RED BLOOD COUNT 4.19 10*6/uL (4.10-5.10); RED CELL DISTRI WIDTH 13.9 % (0-14.5); WHITE BLOOD COUNT 16.7 10*3/uL (4.8-10.8)
[2016-08-29 06:27] LABS: POTASSIUM 3.1 mmol/L (3.5-5.1)
[2016-08-29 06:28] LABS: LYMPHOCYTE # 0.8 10*3/uL (1.3-4.4); MONOCYTE # 0.5 10*3/uL (0.1-1.0); NEUTROPHIL # 15.4 10*3/uL (2.3-7.9); NEUTROPHILS 92 % (47-73); TOTAL CELLS COUNTED 100 #CELLS
[2016-08-29 06:29] LABS: PLATELET SUFFICIENCY LOW (NORMAL)
[2016-08-30] VITALS (38 sets, daily range): BP systolic 74–124; BP diastolic 43–81
[2016-08-30 06:34] LABS: BASO % 0.2 % (0.0-1.0); EOS # 0.1 10*3/uL (0.0-0.4); EOS % 0.4 % (1.0-4.0); HEMATOCRIT 36.7 % (37.0-47.0); HEMOGLOBIN 12.3 g/dl (12.0-16.0); IG # 0.1 10*3/uL (0.0-0.1); LYMPH % 7.7 % (27.0-41.0); MEAN CELL VOLUME 92.9 fl (81.0-99.0); MEAN CORPUSCULAR HGB 31.1 pg (27.0-31.0); MEAN CORPUSCULAR HGB CONC 33.5 g/dl (33.0-37.0); MEAN PLATELET VOLUME 11.5 fl (9.6-12.3); MONO # 0.6 10*3/uL (0.1-1.0); MONO % 4.6 % (3.0-9.0); NEUT % 86.3 % (47.0-73.0); PLATELET COUNT AUTOMATED 98 10*3/uL (130-400); RED BLOOD COUNT 3.95 10*6/uL (4.10-5.10); RED CELL DISTRI WIDTH 13.9 % (0-14.5); WHITE BLOOD COUNT 12.7 10*3/uL (4.8-10.8)
[2016-08-31] VITALS: BP 99/47
[2016-08-31 04:00] VITALS: BP 118/64
[2016-08-31 06:06] LABS: POTASSIUM 3.1 mmol/L (3.5-5.1)
[2016-08-31 08:00] VITALS: BP 125/65
[2016-08-31 12:00] VITALS: BP 125/74
[2016-08-31 16:00] VITALS: BP 132/82
[2016-08-31 20:00] VITALS: BP 139/97
[2016-09-01] VITALS: BP 119/66
[2016-09-01 08:00] VITALS: BP 133/87
[2016-09-01] MEDS ORDERED: XARE20MG PO (10:41)
[2016-09-01] MEDS ORDERED: LANOXIN250 MCG PO (10:41)
[2016-09-01] MEDS ORDERED: KROGER NIC21 MG/24 H T (10:41)
[2016-09-01 12:00] VITALS: BP 113/62
[2016-09-01 16:00] VITALS: BP 103/57
[2016-09-01 20:00] VITALS: BP 133/78
[2016-09-02] VITALS: BP 126/67
[2016-09-02 08:00] VITALS: BP 128/66
[2016-09-02 12:00] VITALS: BP 126/78
[2016-09-02 16:00] VITALS: BP 114/62
[2016-09-02 20:00] VITALS: BP 129/77
[2016-09-03] VITALS: BP 147/70
[2016-09-03 06:42] LABS: BUN 16 mg/dl (7-24); EST GLOM FILT AFRICAN AMERICAN > 60 ml/min
[2016-09-03 08:00] VITALS: BP 129/72
[2016-09-03 12:00] VITALS: BP 159/86
[2016-09-03 16:00] VITALS: BP 111/51
[2016-09-03 20:00] VITALS: BP 130/67
[2016-09-04] VITALS: BP 144/73
[2016-09-04 08:00] VITALS: BP 128/70
[2016-09-04 10:39] LABS: INTERNATIONAL NORM RATIO 1.5 (2.0-3.5); PROTHROMBIN TIME 16.1 SECONDS (9.0-12.4)
[2016-09-04 10:58] LABS: COL/EPI 96 SECONDS (86-157)
[2016-09-04 12:00] VITALS: BP 121/68
[2016-09-04 16:00] VITALS: BP 113/63
[2016-09-04 20:00] VITALS: BP 106/56
[2016-09-05] VITALS (9 sets, daily range): BP systolic 110–150; BP diastolic 56–87
[2016-09-05 05:56] LABS: BASO % 0.3 % (0.0-1.0); EOS # 0.1 10*3/uL (0.0-0.4); EOS % 1.3 % (1.0-4.0); HEMATOCRIT 35.6 % (37.0-47.0); HEMOGLOBIN 11.6 g/dl (12.0-16.0); IG # 0.1 10*3/uL (0.0-0.1); LYMPH # 1.1 10*3/uL (1.3-4.4); LYMPH % 14.1 % (27.0-41.0); MEAN CELL VOLUME 93.7 fl (81.0-99.0); MEAN CORPUSCULAR HGB 30.5 pg (27.0-31.0); MEAN CORPUSCULAR HGB CONC 32.6 g/dl (33.0-37.0); MEAN PLATELET VOLUME 10.2 fl (9.6-12.3); MONO # 0.6 10*3/uL (0.1-1.0); MONO % 7.8 % (3.0-9.0); NEUT # 5.6 10*3/uL (2.3-7.9); NEUT % 74.9 % (47.0-73.0); PLATELET COUNT AUTOMATED 313 10*3/uL (130-400); RED CELL DISTRI WIDTH 13.2 % (0-14.5); WHITE BLOOD COUNT 7.4 10*3/uL (4.8-10.8)
[2016-09-05 06:42] LABS: CHLORIDE 103 mmol/L (98-107); SODIUM 142 mmol/L (136-145)
[2016-09-05 07:50] LABS: BUN 12 mg/dl (7-24); CARBON DIOXIDE 30 mmol/L (21-32); DIGOXIN 1.45 ng/ml (0.8-2.0); EST GLOM FILT AFRICAN AMERICAN > 60 ml/min; GLUCOSE 109 mg/dL (65-99)
[2016-09-06] VITALS: BP 120/60
[2016-09-06 08:00] VITALS: BP 143/77
[2016-09-06 12:00] VITALS: BP 109/70
[2016-09-06 16:00] VITALS: BP 148/79
[2016-09-06 16:10] LABS: ACID FAST SPEC PROCESSING Concentration (.)
[2016-09-06 20:00] VITALS: BP 120/69
[2016-09-07] VITALS: BP 124/63
[2016-09-07 08:00] VITALS: BP 134/64
[2016-09-07 12:00] VITALS: BP 108/59
[2016-09-07 16:00] VITALS: BP 131/66
[2016-09-07 20:00] VITALS: BP 123/64
[2016-09-08] VITALS: BP 122/55
[2016-09-08 08:00] VITALS: BP 119/57
[2016-09-08 12:00] VITALS: BP 110/54
[2016-09-08 16:00] VITALS: BP 120/63; BP 126/67
== END 2016-09-08 16:21 | disposition home health service (06) | DRG 871 ==
LOC: ED 17:10 → 4E 18:54 → ICCU 18:54 → EDHOLD 18:54 → 4E 19:12 → ICCU 21:19 → 4E 08-31 18:56
PROVIDERS: Internal Medicine; Internal Medicine Cardiovascular Disease; Internal Medicine Critical Care Medicine; Student in an Organized Health Care Education/Training Program
DX: A41.9 Sepsis, unspecified organism (principal); J96.21 Acute and chronic respiratory failure with hypoxia; R65.21 Severe sepsis with septic shock; N17.9 Acute kidney failure, unspecified; E11.42 Type 2 diabetes mellitus with diabetic polyneuropathy; J44.1 Chronic obstructive pulmonary disease with (acute) exacerbation; E11.622 Type 2 diabetes mellitus with other skin ulcer; D69.6 Thrombocytopenia, unspecified; N39.0 Urinary tract infection, site not specified; L97.929 Non-pressure chronic ulcer of unspecified part of left lower leg with unspecified severity; L97.919 Non-pressure chronic ulcer of unspecified part of right lower leg with unspecified severity; N10 Acute pyelonephritis; L03.119 Cellulitis of unspecified part of limb; Z68.41 Body mass index [BMI] 40.0-44.9, adult; Z66 Do not resuscitate; I48.0 Paroxysmal atrial fibrillation; E78.5 Hyperlipidemia, unspecified; F32.9 Major depressive disorder, single episode, unspecified; I25.10 Atherosclerotic heart disease of native coronary artery without angina pectoris; F17.210 Nicotine dependence, cigarettes, uncomplicated; I10 Essential (primary) hypertension; J40 Bronchitis, not specified as acute or chronic; B96.20 Unspecified Escherichia coli [E. coli] as the cause of diseases classified elsewhere; X58.XXXA Exposure to other specified factors, initial encounter; T17.990A Other foreign object in respiratory tract, part unspecified in causing asphyxiation, initial encounter; E66.01 Morbid (severe) obesity due to excess calories; G47.33 Obstructive sleep apnea (adult) (pediatric); I87.2 Venous insufficiency (chronic) (peripheral); R62.7 Adult failure to thrive; E78.2 Mixed hyperlipidemia; K59.09 Other constipation; I48.2 Chronic atrial fibrillation; Z88.0 Allergy status to penicillin; Z79.899 Other long term (current) drug therapy; Y93.89 Activity, other specified; Y92.89 Other specified places as the place of occurrence of the external cause; Y99.8 Other external cause status; Z98.51 Tubal ligation status; Z90.49 Acquired absence of other specified parts of digestive tract; Z95.5 Presence of coronary angioplasty implant and graft; Z82.49 Family history of ischemic heart disease and other diseases of the circulatory system; Z98.41 Cataract extraction status, right eye; Z83.3 Family history of diabetes mellitus; Z82.3 Family history of stroke

== ENCOUNTER 2016-10-03 13:24 | Emergency (ER) | payer OTHER, MEDICARE ==
[~2016-10-03] VITALS: Wt 108.9 kg
[~2016-10-03 13:24] MED LIST changes: +KROGER NIC21 MG/24 H T; +LANOXIN250 MCG PO; +XARE20MG PO
[2016-10-03 14:24] LABS: BILIRUBIN NEGATIVE (NEGATIVE); BLOOD NEGATIVE (NEGATIVE); CLARITY SL CLOUDY (CLEAR); COLOR YELLOW (YELLOW); GLUCOSE NEGATIVE (NEGATIVE); KETONE NEGATIVE (NEGATIVE); LEUKO ESTERASE NEGATIVE (NEGATIVE); NITRITE NEGATIVE (NEGATIVE); PROTEIN NEGATIVE (NEGATIVE); UROBILINOGEN 0.2 E.U./dl (0.2-1.0)
[2016-10-03 14:25] LABS: BASO % 0.4 % (0.0-1.0); EOS # 0.2 10*3/uL (0.0-0.4); EOS % 1.8 % (1.0-4.0); HEMOGLOBIN 14.4 g/dl (12.0-16.0); LYMPH # 2.3 10*3/uL (1.3-4.4); LYMPH % 27.8 % (27.0-41.0); MEAN CELL VOLUME 96.9 fl (81.0-99.0); MEAN CORPUSCULAR HGB 31.7 pg (27.0-31.0); MEAN CORPUSCULAR HGB CONC 32.7 g/dl (33.0-37.0); MEAN PLATELET VOLUME 10.2 fl (9.6-12.3); MONO # 0.5 10*3/uL (0.1-1.0); MONO % 6.5 % (3.0-9.0); NEUT # 5.2 10*3/uL (2.3-7.9); NEUT % 63.1 % (47.0-73.0); PLATELET COUNT AUTOMATED 280 10*3/uL (130-400); RED BLOOD COUNT 4.54 10*6/uL (4.10-5.10); RED CELL DISTRI WIDTH 15.9 % (0-14.5); WHITE BLOOD COUNT 8.2 10*3/uL (4.8-10.8)
[2016-10-03 14:31] LABS: BACTERIA 1+; EPITHELIAL CELLS 21-30; MUCOUS 1+; URINE REFLEX COMMENT YES (NO)
[2016-10-03 14:40] LABS: BILIRUBIN, TOTAL 0.5 mg/dl (0.2-1.0); POTASSIUM 3.8 mmol/L (3.5-5.1); TOTAL PROTEIN 7.2 gm/dL (6.4-8.2)
[2016-10-03 15:28] VITALS: BP 93/58
[2016-10-03 16:20] LABS: LA>2 REFLEX 2 HR DRAW NOW
== END 2016-10-03 17:36 | disposition home or self-care (01) ==
LOC: EDSTATUS 13:24 → ED 13:25 → WOUNDCARE 15:57 → ED 17:36
PROVIDERS: Nurse Practitioner Family
DX: I95.9 Hypotension, unspecified (principal); F17.210 Nicotine dependence, cigarettes, uncomplicated; Z95.5 Presence of coronary angioplasty implant and graft; Z90.49 Acquired absence of other specified parts of digestive tract; Z88.0 Allergy status to penicillin; Z79.899 Other long term (current) drug therapy

== ENCOUNTER 2016-11-03 08:48 | Inpatient (IN) | payer MEDICARE, OTHER ==
[2016-11-03] VITALS (9 sets, daily range): BP systolic 104–124; BP diastolic 54–68
[~2016-11-03] VITALS: Ht 162.5 cm; Wt 93.2 kg
--- NOTE | ~2016-11-03 | CON ---
[place], [place] REPORT OF CONSULTATION NAME: VLADISLAV [facility]DAMEZ [facility]: [id number] UNIT #: [id number] [facility] DOCTOR: FRANCESCO NOVA MD BIRTHDATE: [birth year] DOS: 11/04/2016 The consultation requested by Dr. Dacosta. HISTORY OF PRESENT ILLNESS: A 66-year-old resident of [facility], brought to the hospital in the Emergency Room. Upon request of the family members, the patient has been noted change in mental status with generalized weakness and fatigue. The patient has been assessed in the Emergency Room for possibility of acute stroke. The stroke for the patient could not be confirmed for further assessment with the CT scan of the head and others. She was noted awake, alert, oriented to time and place upon arrival in the Emergency Room per note of Dr. Moore. The patient has been admitted to the hospital for further assessment and management. The patient has been currently resting in the Intensive Care Unit comfortably. She has been noted awake and alert and following vocal commands. She stated she could not recall anything what is going on with the patient. The patient denies symptoms of coughing, chest pain or sputum expectoration. Denies symptoms of active wheezing. Denies symptoms of hemoptysis. REVIEW OF SYSTEMS: CONSTITUTIONAL: Limited, constitutional symptom, the patient has been noted fatigue and tiredness without any symptoms of fever or chills. EYES: Denies any burning, redness, or tenderness. EARS, NOSE, THROAT SYMPTOMS: No sore throat, hoarseness, otalgia, postnasal drainage. CARDIOVASCULAR SYSTEM: Denies anginal pain, edema or pain of the lower extremities. GASTROINTESTINAL: Denies dysphagia, nausea, vomiting, diarrhea, abdominal pain, hematemesis, and melena. SKIN: Denies lesions or rashes. CENTRAL NERVOUS SYSTEM: Generalized weakness and fatigue was noted without any specific area of focal deficit. PAST MEDICAL HISTORY: 1. Lower extremity wound, which has been managed previously by the wound management. 2. Long-standing chronic obstructive pulmonary disease/centrilobular emphysema. 3. History of past heavy nicotine abuse. 4. History of pancolitis. 5. Obesity hypoventilation syndrome. 6. Obstructive sleep apnea disorder, remains noncompliant with the treatment. 7. History of diabetic neuropathy. 8. Coronary artery disease. 9. Gastroesophageal reflux. 10. Panniculitis which is cellulitis of the abdominal wall. 11. History of aortic stenosis. 12. Hypercholesterolemia. PAST SURGICAL HISTORY: 1. Tubal ligation. [place], [place] REPORT OF CONSULTATION NAME: VLADISLAV GALDAMEZ UNIT #: [id number] [facility]: [facility] DOCTOR: ANNIE MARTIN MD,FRANCESCO BIRTHDATE: [birth year] 2. Cataract extraction of the right eye. 3. Right knee arthroscopy. 4. Bunion removal. 5. Cardiac catheterization and coronary artery stent insertion. 6. Lumbar laminectomy. SOCIAL HISTORY: The patient is . Currently, a resident of [facility]. Denies history of alcohol use, illicit drug use. Smoking noted since teenager. The patient smoked about 3 packs of cigarettes per day in the past, but not noted active tobacco at this time. Any history of alcohol use or any illicit drugs. FAMILY HISTORY: Reported for diabetes, hypertension and stroke. MEDICATIONS: The patient noted use of digoxin, famotidine, Cardizem-CD, raloxifene which is EVISTA, Amaryl, omeprazole, fenofibrate, Eliquis, Lipitor, Mucinex, nicotine replacement patches, tizanidine, IV Solu-Medrol 60 mg every 8 hours, Levaquin, vancomycin and meropenem. ALLERGIES: The drug allergy noted as allergy to the PENICILLINS. PHYSICAL EXAMINATION: GENERAL: A 66-year-old female currently noted to be awake and alert without any distress. Height of 5 feet 4 inches, weight of 96 kg, BMI 35.2. VITAL SIGNS: For the patient noted temperature 100 degrees Fahrenheit rectal temperature. Otherwise normal temperature, respiratory recorded between 11-15, heart rate 95-100, blood pressure 124/64-104/59. Pulse oxygen saturation was recorded on room air at 88% with 3 liters nasal cannula 93% saturation. HEENT: Limited. There was no acute abnormality was noted. NECK: Supple. CARDIOVASCULAR: S1, S2 is audible. No added sounds. LUNGS: The patient was noted with decreased breath sounds in the lungs bilaterally. Occasional crackles. ABDOMEN: Soft and nontender. LABORATORY DATA: The arterial blood gas on 100% nonrebreather yesterday pH of 7.43, pCO2 of 44, pO2 100. The CMP of the patient yesterday in the Emergency was WBC count 12.7, hemoglobin 11.6, hematocrit 34.8, platelet count 223,000. The CMP of the patient that was done yesterday in the Emergency Room. BUN 26, creatinine normal, glucose 134, sodium 132. The CT scan of the head that was done yesterday in the Emergency Room, the patient was described as volume loss changes of the brain with possibility of Alzheimer dementia could be considered. There was no evidence of acute stroke or infarction. Enzyme for the patient which were done 3 sets yesterday and this morning were all noted normal. CBC this morning, mild anemia, otherwise normal CBC. PT/PTT were noted normal this morning. CMP this morning, glucose 137, BUN 20, creatinine was normal. Urine culture shows heavy growth of gram-negative bacilli greater than 1:10,000. Chest x-ray of the patient that was done yesterday shows mild cardiomegaly was noted with evidence of combination of pleural fluid with area of atelectasis, infiltration in the left lower lobe. Right lung appeared to be clear. There [place], [place] REPORT OF CONSULTATION NAME: VLADISLAV GALDAMEZ UNIT #: [id number] [facility] DOCTOR: SAKSHI NOVA MDM BIRTHDATE: [birth year] was evidence of scoliosis of the cervical spine was noted. IMPRESSION: 1. The patient will be currently admitted to the hospital noted with acute pneumonia, left lower lobe with associated pleural fluids possibility aspiration as well as a urinary tract infection, gram-negative infection was considered acute change in mental status secondary to the above. The patient with acute hypoxic respiratory failure. The patient currently treated with oxygen supplementation. 2. Decreased mobility for the patient with general body weakness. 3. Chronic anticoagulation with Eliquis. 4. Past history of nicotine abuse. 5. Acute exacerbation of chronic obstructive pulmonary disease as well. PLAN OF TREATMENT: At this time, all the antibiotic, which was ordered will be started based on the final culture results in the next 48 hours. Bronchodilator help mobilize secretions. Continue IV Solu-Medrol for acute exacerbation of COPD as well. Monitoring of the chest x-ray findings, the patient closely with a followup chest x-ray to be done with PA lateral chest x-ray reviewed for the patient preferably in the morning. We performed the ultrasound of the chest if necessary to assess for any pleural fluid, which would be tapable. Usual care. DVT prophylaxis. Thanks for allowing me to participate in the care of the patient. FRANCESCO VALENCIA MD CM:CONSTR:REPORT OF CONSULTATION 1321 11/04/16 1503 interface
--- NOTE | ~2016-11-03 | PR ---
[place], [place] PROGRESS NOTE NAME: VLADISLAV GALDAMEZ UNIT #: [id number] ROOM: 522 DOCTOR: FRANCESCO NOVA MD BIRTHDATE: [birth year] DOS: 11/06/2016 SUBJECTIVE: The patient has been noted comfortable at this time. She was complaining of dry heaves and nausea feeling. Denies acute shortness of breath, coughing, chest pain. Denies any wheezing. OBJECTIVE: VITAL SIGNS: Showed normal temperature, respiratory rate 20, heart rate of 85, blood pressure 139/71. Pulse oxygen saturation of the patient was recorded as 98% on 3 liters nasal canula. HEENT: Showed no acute change. NECK: Supple. CARDIOVASCULAR: S1, S2 is audible. LUNGS: The patient was noted with decreased breath sounds in the left lung base. ABDOMEN: Soft, obese, nontender. LABORATORY DATA: CBC of the patient was noted essentially normal CBC today. CMP this morning noted BUN 28, creatinine was normal. Remaining CMP grossly normal. The chest x-ray done this morning shows right pleural fluids noted with area of compression atelectasis and infiltration. IMPRESSION: 1. The patient who has been currently admitted to the hospital, being treated for change in mental status secondary to acute pneumonia noted with a small pleural fluid on the left side that has been noted stable. 2. Dry heave and nausea. Etiology remains unclear. 3. Acute exacerbation of chronic obstructive pulmonary disease as well. PLAN OF TREATMENT: Reduce the dose of Solu-Medrol from 60 mg b.i.d. dosing to 40 mg b.i.d. today and then change it to 40 mg daily from tomorrow. The pleural fluid was noticed mild at this time, no intervention will be planned. Current antibiotics based on the culture results. Usual care, other supportive therapy, plan of management and treatment. [place], [place] PROGRESS NOTE NAME: VLADISLAV GALDAMEZ UNIT #: [id number] ROOM: 522 DOCTOR: FRANCESCO NOVA MD BIRTHDATE: [birth year] FRANCESCO VALENCIA MD CM:PNTRANS [id number] FRANCESCO MARTIN MD 11/07/16 0038 interface
--- NOTE | ~2016-11-03 | PR ---
[place], [place] PROGRESS NOTE NAME: VLADISLAV GALDAMEZ UNIT #: [id number] ROOM: 522 DOCTOR: FRANCESCO NOVA MD BIRTHDATE: [birth year] DOS: 11/05/2016 PULMONARY FOLLOWUP NOTE SUBJECTIVE: She has been noted more awake and alert. She has not been noted in any confusional status. Denies symptoms of chest pain, shortness of breath for the patient described at rest. There were no symptoms of hemoptysis. OBJECTIVE: VITAL SIGNS: For the patient recorded shows a normal temperature, respirations 18, heart rate 96, blood pressure 147/79 this morning. The pulse oxygen saturation was noted on 3 liters canula 94% saturation. HEENT: Examination shows no acute change. NECK: Supple. CARDIOVASCULAR: S1, S2 audible. LUNGS: Noted without any wheezing or crackles at the present time. ABDOMEN: Soft and nontender. EXTREMITIES: Shows no edema. LABORATORY DATA: BMP of the patient this morning, glucose 120, BUN 25, creatinine was normal. CBC this morning, hemoglobin 10.2, hematocrit 30.7, platelet count was normal. IMPRESSION: 1. The patient who has been currently noted with ongoing acute changes of mental status with acute pneumonia secondary to possible aspiration with urinary tract infection as well. 2. Decreased mobility and scoliosis of the spine. 3. Acute exacerbation of chronic obstructive pulmonary disease. PLAN OF TREATMENT: Continuation of the current antibiotics, bronchodilators. Monitoring culture results. The dose of Solu-Medrol will be decreased to 60 mg b.i.d. today. Other supportive therapy, plan of management. Repeat chest x-ray in the morning to reassess the progression of the pneumonia. Continuation of bronchodilators and oxygen supplementation. Aspiration precautions. Supportive therapy, plan of management and care. [place], [place] PROGRESS NOTE NAME: VLADISLAV GALDAMEZ UNIT #: [id number] ROOM: 522 DOCTOR: FRANCESCO NOVA MD BIRTHDATE: [birth year] FRANCESCO VALENCIA MD CM:PNTRANS [id number] FRANCESCO MARTIN MD 11/06/16 0056 interface
[~2016-11-03 08:48] MED LIST changes: +GLIMEPIRIDE2 MG PO; -GLIMEPIRIDE4 MG PO; +MIRALAX119 GM PO; -MIRALAX17 GM/DOSE PO; +PERCOCET 10-321 EACH PO; -PERCOCET 325 MG1 TAB PO
--- NOTE | 2016-11-03 08:50 | NUR ---
ACCOMPANIED PATIENT TO CT SCANNER. NIHSS 20
--- NOTE | 2016-11-03 09:02 | NUR ---
CONTACTED [facility] FOR A TIME THAT THE SYPTOMS STARTED. SPOKE WITH CHRISTOPHER WHO WAS THE NURSE TAKING CARE OF THE PATIENT. SHE STATED THAT THE PATIENT WAS NORMAL LAST NIGHT, STATES SHE WAS FOUND THIS WAY AT APPORXIMATELY 0730 WHEN VS WERE TAKING.
--- NOTE | 2016-11-03 09:11 | NUR ---
PATIENT'S MOTHER STATES THAT THE PATIENT HAS BEEN THIS WAY FOR ABOUT 2 DAYS, STATES SHE HAS MADE MENTION OF IT TO SNF STAFF AND NOTHING WAS DONE, UNKNOWN TIME.
--- NOTE | 2016-11-03 09:18 | NUR ---
PATIENT PLACED ON 15LPM O2 VIA NRB D/T LOW SpO2 WITH 6L NC
--- NOTE | 2016-11-03 09:20 | NUR ---
LARGE UMBILICAL HERNIA NOTED
--- NOTE | 2016-11-03 09:34 | NUR ---
NAVARRO CATH INFLATED WITH 10ML STERILE WATER
[2016-11-03 09:41] LABS: BASO % 0.2 % (0.0-1.0); EOS % 0.3 % (1.0-4.0); HEMATOCRIT 34.8 % (37.0-47.0); HEMOGLOBIN 11.6 g/dl (12.0-16.0); LYMPH # 0.8 10*3/uL (1.3-4.4); LYMPH % 6.4 % (27.0-41.0); MEAN CELL VOLUME 89.2 fl (81.0-99.0); MEAN CORPUSCULAR HGB 29.7 pg (27.0-31.0); MEAN CORPUSCULAR HGB CONC 33.3 g/dl (33.0-37.0); MEAN PLATELET VOLUME 11.1 fl (9.6-12.3); MONO # 0.8 10*3/uL (0.1-1.0); MONO % 6.2 % (3.0-9.0); NEUT % 86.5 % (47.0-73.0); PLATELET COUNT AUTOMATED 223 10*3/uL (130-400); RED CELL DISTRI WIDTH 12.9 % (0-14.5); WHITE BLOOD COUNT 12.7 10*3/uL (4.8-10.8)
[2016-11-03 09:51] LABS: ABG BASE EXCESS 4.5 mmol/L (-2.0-2.0); ABG HCO3 29.2 mmol/l (22-26); ABG O2 SATURATION 99.5 % (95-97); ARTERIAL BLOOD GAS PCO2 44.3 mmHg (35-45); ARTERIAL BLOOD GAS PH 7.43 (7.35-7.45)
[2016-11-03 09:56] LABS: ALBUMIN 2.5 gm/dl (3.1-4.5); ALKALINE PHOSPHATASE 58 U/L (45-117); BUN 26 mg/dl (7-24); CHLORIDE 96 mmol/L (98-107); CREATININE 0.91 mg/dL (0.55-1.02); POTASSIUM 3.8 mmol/L (3.5-5.1); SGOT/AST 15 IU/L (3-35); SGPT/ALT 9 U/L (12-78); SODIUM 132 mmol/L (136-145); TOTAL PROTEIN 7.3 gm/dL (6.4-8.2)
[2016-11-03 10:12] LABS: BILIRUBIN 1+ (NEGATIVE); BLOOD NEGATIVE (NEGATIVE); CLARITY SL CLOUDY (CLEAR); COLOR YELLOW (YELLOW); GLUCOSE NEGATIVE (NEGATIVE); KETONE TRACE (NEGATIVE); LEUKO ESTERASE TRACE (NEGATIVE); NITRITE NEGATIVE (NEGATIVE); PH 5.5 (5.0-9.0); SPECIFIC GRAVITY 1.025 (1.005-1.030)
--- NOTE | 2016-11-03 10:15 | NUR ---
ABG GASES DISCUSSED WITH DR. PENN, PO2 AT 200. VBENTURI MASK AT 35% INITIATED
[2016-11-03 10:23] LABS: BACTERIA 1+; EPITHELIAL CELLS 21-30; RBC 0-2 rbc/hpf (0-2)
--- NOTE | 2016-11-03 11:59 | NUR ---
REPORT RECEIVED FROM MARIE MUSTAFA.PT ASKING TO BE ADMITTED SOON.IV FLUIDS BEING HUNG AT THIS TIME ALONG WITH IV ANTIBIOTICS. MANY FAMILY MEMBERS AT BEDSIDE.VITALS STABLE.----VIANCA GARBER RN
--- NOTE | 2016-11-03 12:19 | NUR ---
PT REPOSITIONED ON HER SIDE DUE TO C/O BACK DISCOMFORT. TINY SUPERFICIAL SKIN BREAKDOWN/PEELING SKIN NOTED TO LEFT BUTTOCK. PT BEING ADMITTED TO ICU.---VIANCA GARBER RN
--- NOTE | 2016-11-03 13:00 | NUR ---
A 66yr old female, admitted to ICCU, under the services of DORON Barton DO with a diagnosis of UTI, SEPSIS, PNEUMONIA. Chief complaint is sent in from [facility] with change in mental status, left facial droop and left sided weakness. CT Brain attack was negative. Patient arrived via stretcher from ER. Monitor applied. Initial assessment completed. Vital signs taken and recorded. See assessment for past medical history, medications and allergies. Patient and/or family oriented to unit. [facility] ICCU visitation policy reviewed. Clothing/patient valuable form completed. Photos taken of dry wound right buttock, and areas of both lower legs. at bedside. Dr Dempsey in and examined patient. Patient does not answer questions, yells out when repositioned. Antibiotics infusing from ER. See all appropriate interventions. JOVON LEVY
[2016-11-03] MEDS ORDERED: NICODERM CQ1 EACH TD (13:19)
[2016-11-03] MEDS ORDERED: DURAGESIC1 EAC1 TD (13:20)
[2016-11-03] MEDS ORDERED: BREO ELLIPTA 11 EACH INH (13:21)
[2016-11-03] MEDS ORDERED: HUMALOG100 UNIT/1 SC (13:31)
[2016-11-03] MEDS ORDERED: TRIAMTERENE-HC1 EACH PO (13:33)
[2016-11-03] MEDS ORDERED: CARTIA XT240 MG PO (13:34)
[2016-11-03] MEDS ORDERED: INCRUSE ELLI62.5 MCG INH (13:35)
[2016-11-03] MEDS ORDERED: OMEPRAZOLE MAGN20 MG PO (13:36)
[2016-11-03] MEDS ORDERED: FENOFIBRATE MI200 MG PO (13:39)
[2016-11-03] MEDS ORDERED: ELIQUIS5 M1 PO (13:41)
[2016-11-03] MEDS ORDERED: APAP500 MG PO (13:43)
--- NOTE | 2016-11-03 15:09 | NUR ---
DR VALENCIA NOTIFIED OF CONSULTATION. REVIEWED LABS, MEDS AND XRAYS WITH HIM. NO NEW ORDERS.
--- NOTE | 2016-11-03 19:15 | NUR ---
24 HR chart check completed.
--- NOTE | 2016-11-03 22:38 | NUR ---
SCHEDULED LYRICA GIVEN.
--- NOTE | 2016-11-03 23:00 | NUR ---
PATIENT ASLEEP. NO SIGNS OF PAIN. LYRICA EFFECTIVE.
[2016-11-04] VITALS: BP 117/57
[2016-11-04 04:00] VITALS: BP 112/54
--- NOTE | 2016-11-04 05:39 | NUR ---
Hep Lock discontinued. PATIENT PULLED IV OUT. Site asymptomatic. Pressure applied. Sterile dressing applied. JACKIE ROB
[2016-11-04 06:18] LABS: HEMATOCRIT 33.5 % (37.0-47.0); HEMOGLOBIN 11.3 g/dl (12.0-16.0); LYMPH # 0.5 10*3/uL (1.3-4.4); LYMPH % 9.2 % (27.0-41.0); MEAN CELL VOLUME 90.1 fl (81.0-99.0); MEAN CORPUSCULAR HGB 30.4 pg (27.0-31.0); MEAN CORPUSCULAR HGB CONC 33.7 g/dl (33.0-37.0); MEAN PLATELET VOLUME 10.9 fl (9.6-12.3); MONO # 0.1 10*3/uL (0.1-1.0); MONO % 2.2 % (3.0-9.0); NEUT # 4.9 10*3/uL (2.3-7.9); NEUT % 88.2 % (47.0-73.0); PLATELET COUNT AUTOMATED 222 10*3/uL (130-400); RED BLOOD COUNT 3.72 10*6/uL (4.10-5.10); RED CELL DISTRI WIDTH 12.4 % (0-14.5); WHITE BLOOD COUNT 5.5 10*3/uL (4.8-10.8)
[2016-11-04 06:47] LABS: ALBUMIN 2.2 gm/dl (3.1-4.5); ALKALINE PHOSPHATASE 54 U/L (45-117); BUN 20 mg/dl (7-24); CHLORIDE 99 mmol/L (98-107); CREATININE 0.75 mg/dL (0.55-1.02); MAGNESIUM 1.8 mg/dL (1.5-2.1); PHOSPHOROUS 2.3 mg/dL (2.5-4.9); POTASSIUM 3.6 mmol/L (3.5-5.1); SGOT/AST 11 IU/L (3-35); SGPT/ALT 9 U/L (12-78); SODIUM 136 mmol/L (136-145); TOTAL PROTEIN 6.9 gm/dL (6.4-8.2)
[2016-11-04 06:54] LABS: ACT PARTIAL THROMBO TIME 32.3 SECONDS (20.8-31.5); INTERNATIONAL NORM RATIO 1.2 (2.0-3.5); THYROID STIM HORMONE (HS) 0.354 uIU/ml (0.358-4.75)
[2016-11-04 07:23] LABS: VITAMIN D, 25-HYDROXY 32.3 ng/mL (30-100)
[2016-11-04 08:00] VITALS: BP 104/59
--- NOTE | 2016-11-04 08:25 | NUR ---
Awakenes to verbal stimuli, Repositioned to left side. Breakfast ordered.
--- NOTE | 2016-11-04 09:10 | NUR ---
Patient lying in bed during assessment of BLE and right buttocks. Areas to BLE no drainage, reddness, odor noted. Skin normal in color to BLE. Area to right buttocks no drainage or odor noted. Area is blanchable. Continue current wound care no rinse spray and apply moisturizing lotion. Measurements of right buttocks 0.5cm x 0.2cm x <0.1cm.
--- NOTE | 2016-11-04 09:45 | NUR ---
Full feed for breakfast. repositioned to Rt. side. Wound care nurse in, no new treatment.
--- NOTE | 2016-11-04 10:18 | NUR ---
Spouse in to visit.
--- NOTE | 2016-11-04 10:59 | NUR ---
To bed bermudez for large mushy BM , remains positioned to rt. noni care given and ointment applied to buttock
[2016-11-04 11:28] VITALS: BP 94/49
--- NOTE | 2016-11-04 14:31 | NUR ---
IV dislodged during meal. Re-Start to RA. Repositioned.
[2016-11-04 16:00] VITALS: BP 98/50
--- NOTE | 2016-11-04 16:24 | NUR ---
Awake and alert. Dinner ordered.
--- NOTE | 2016-11-04 19:03 | NUR ---
24 HR chart check completed.
[2016-11-04 20:00] VITALS: BP 118/58
--- NOTE | 2016-11-04 22:30 | NUR ---
SCHEDULED LYRICA GIVEN.
--- NOTE | 2016-11-04 23:30 | NUR ---
DENIES PAIN. LYRICA EFFECTIVE.
--- NOTE | 2016-11-04 23:56 | NUR ---
C/O NUMBER 07/26 HEADACHE. MEDICATED WITH PRN TYLENOL ORDERED AND PER PATIENT REQUEST.
[2016-11-05] VITALS: BP 123/63
--- NOTE | 2016-11-05 00:56 | NUR ---
PATIENT ASLEEP. NO SIGNS OF PAIN. TYLENOL EFFECTIVE.
[2016-11-05 04:00] VITALS: BP 111/58
[2016-11-05 05:48] LABS: BASO % 0.2 % (0.0-1.0); HEMATOCRIT 30.7 % (37.0-47.0); HEMOGLOBIN 10.2 g/dl (12.0-16.0); LYMPH # 0.5 10*3/uL (1.3-4.4); LYMPH % 9.1 % (27.0-41.0); MEAN CELL VOLUME 89.2 fl (81.0-99.0); MEAN CORPUSCULAR HGB 29.7 pg (27.0-31.0); MEAN CORPUSCULAR HGB CONC 33.2 g/dl (33.0-37.0); MEAN PLATELET VOLUME 11.1 fl (9.6-12.3); MONO # 0.3 10*3/uL (0.1-1.0); MONO % 4.9 % (3.0-9.0); NEUT # 4.9 10*3/uL (2.3-7.9); NEUT % 85.4 % (47.0-73.0); PLATELET COUNT AUTOMATED 203 10*3/uL (130-400); RED BLOOD COUNT 3.44 10*6/uL (4.10-5.10); RED CELL DISTRI WIDTH 12.8 % (0-14.5); WHITE BLOOD COUNT 5.7 10*3/uL (4.8-10.8)
[2016-11-05 05:59] LABS: BUN 25 mg/dl (7-24); CHLORIDE 102 mmol/L (98-107); CREATININE 0.82 mg/dL (0.55-1.02); FREE T4 1.34 ng/dl (0.76-1.46); PHOSPHOROUS 2.5 mg/dL (2.5-4.9); POTASSIUM 4.2 mmol/L (3.5-5.1); SODIUM 138 mmol/L (136-145)
[2016-11-05 07:58] VITALS: BP 127/67
[2016-11-05 12:00] VITALS: BP 147/79
[2016-11-05 16:00] VITALS: BP 140/74
--- NOTE | 2016-11-05 18:05 | NUR ---
pt medicated with prn zofran for c/o nausea.
--- NOTE | 2016-11-05 18:30 | NUR ---
PT STATES SHE IS FEELING A LITTLE BIT BETTER.
--- NOTE | 2016-11-05 18:45 | NUR ---
MEDICATED PT AT THIS TIME WITH PRN PERCOCET FOR C/O NECK AND BACK PAIN THAT SHE STATES IS CHRONIC. PT STATES SHE USES A FENTANYL PATCH AT [facility] BUT ONE CANNOT BE FOUND ON HER PERSON AND IT IS NOT CONTINUED INPATIENT. AFTER PERCPCET DOSE PATIENT IMMEDIATELY FELT NAUSEOUS AND VOMITTED ONE TIME. PERCOCET NOT SEEN IN MUCOUSY EMESIS. DR. AGUILERA INFORMED AND IS TO COME TO THE FLOOR TO SEE THE PATIENT.
[2016-11-05 20:00] VITALS: BP 155/85
[2016-11-06] VITALS: BP 115/54; BP 154/77
--- NOTE | 2016-11-06 00:06 | NUR ---
PT COMPLAINS OF NAUSEA, PHENERGAN GIVEN. SEE MAR. WILL MONITOR FOR EFFECTIVENSS
--- NOTE | 2016-11-06 03:09 | NUR ---
24 HR chart check completed.
--- NOTE | 2016-11-06 04:05 | NUR ---
PT COMPLAINS OF GENERALIZED PAIN AND NAUSEA. PRN GIVEN, SEE MAR.
[2016-11-06 06:18] LABS: HEMATOCRIT 36.4 % (37.0-47.0); LYMPH # 0.7 10*3/uL (1.3-4.4); MEAN CELL VOLUME 90.1 fl (81.0-99.0); MEAN CORPUSCULAR HGB 29.7 pg (27.0-31.0); MEAN PLATELET VOLUME 10.5 fl (9.6-12.3); MONO # 0.7 10*3/uL (0.1-1.0); MONO % 7.6 % (3.0-9.0); NEUT # 7.5 10*3/uL (2.3-7.9); NEUT % 83.7 % (47.0-73.0); PLATELET COUNT AUTOMATED 259 10*3/uL (130-400); RED BLOOD COUNT 4.04 10*6/uL (4.10-5.10); WHITE BLOOD COUNT 8.9 10*3/uL (4.8-10.8)
[2016-11-06 06:35] LABS: CHLORIDE 104 mmol/L (98-107); POTASSIUM 4.1 mmol/L (3.5-5.1); SODIUM 139 mmol/L (136-145)
[2016-11-06 06:42] LABS: ALBUMIN 2.4 gm/dl (3.1-4.5); ALKALINE PHOSPHATASE 55 U/L (45-117); BUN 28 mg/dl (7-24); CREATININE 0.76 mg/dL (0.55-1.02); MAGNESIUM 2.1 mg/dL (1.5-2.1); SGOT/AST 11 IU/L (3-35); SGPT/ALT 9 U/L (12-78)
[2016-11-06 08:00] VITALS: BP 139/71
--- NOTE | 2016-11-06 09:32 | NUR ---
case management visits with patient, patient stated she lives at home with her , patient was sent in from [facility], will have partner integration planner talk with and see what he wants for a discharge plan
--- NOTE | 2016-11-06 09:52 | NUR ---
PATIENT REFUSED AM MEDS.
--- NOTE | 2016-11-06 09:59 | NUR ---
Spoke to Mr. Bryant about his 's discharge plans. He does not feel he can care for her at home. She was recently placed at [facility]; he is very upset with the care she received. He is requesting a referral be made to another skilled care facility. Informed him of the local facilities-he does not have a preference. Will need physical and occupational therapy evaluations.
[2016-11-06 10:15] VITALS: BP 139/70
--- NOTE | 2016-11-06 10:15 | NUR ---
PATIENT IN A FIB AND A FLUTTER, RATE 70-80. DR. ELIJAH HYATT NOTIFIED. PATIENT DID NOT WISH TO TAKE HER AM MEDS THIS AM. RN EXPLAINED TO PATIENT THE IMPORTANCE OF TAKING HER CARDIZEM AND ELIQUIS. PATIENT AGREED TO TAKE THESE MEDS AT THIS TIME.
[2016-11-06 12:00] VITALS: BP 142/71
--- NOTE | 2016-11-06 14:44 | NUR ---
PATIENT REQUESTED AND GIVEN PERCOCET FOR GENERALIZED ALL OVER PAIN 10/26. WILL MONITOR.
--- NOTE | 2016-11-06 15:18 | NUR ---
PHYSICAL THERAPY PAtient evaluated on 5, full evaluation to follow. Continue with PT as per plan of care with fall, max (A) x 2 and suggested napoleon in/out bed with nursing staff suggested precautions. Patient also has bed alarm precautions. Patient is high complexity via chart review, tests and evalaution: 95906. Will require LTAC versus SNF for impaired mobility. Thank you for this referral. Karen Diaz,PT
--- NOTE | 2016-11-06 15:30 | NUR ---
NO FURTHER COMPLAINTS OF PAIN.
[2016-11-06 15:53] VITALS: BP 124/64
--- NOTE | 2016-11-06 15:54 | NUR ---
Occupational Therapy evaluation completed on 5 with full eval to follow. Precautions include fall risk, duggan catheter, O2, impaired memory, IV UE, high complexity level 54229. Recommend OT per POC and return to SNF for ADL, functional mobility, balance tx. Thank you for this referral. Mirian Valdez OTR/L
--- NOTE | 2016-11-06 18:12 | NUR ---
AT THE BEDSIDE.
[2016-11-06 20:00] VITALS: BP 143/69
--- NOTE | 2016-11-06 22:00 | NUR ---
PT RESTING QUIETLY IN BED. NO FURTHER S/S OF DISTRESS NOTED. PRN MUSCLE RELAXER EFFECTIVE.
[2016-11-07] VITALS: BP 116/65
[2016-11-07 05:59] LABS: HEMATOCRIT 33.9 % (37.0-47.0); HEMOGLOBIN 10.8 g/dl (12.0-16.0); LYMPH # 0.8 10*3/uL (1.3-4.4); LYMPH % 12.1 % (27.0-41.0); MEAN CELL VOLUME 91.9 fl (81.0-99.0); MEAN CORPUSCULAR HGB 29.3 pg (27.0-31.0); MEAN CORPUSCULAR HGB CONC 31.9 g/dl (33.0-37.0); MEAN PLATELET VOLUME 10.1 fl (9.6-12.3); MONO # 0.6 10*3/uL (0.1-1.0); MONO % 8.3 % (3.0-9.0); NEUT # 5.3 10*3/uL (2.3-7.9); NEUT % 78.9 % (47.0-73.0); PLATELET COUNT AUTOMATED 224 10*3/uL (130-400); RED BLOOD COUNT 3.69 10*6/uL (4.10-5.10); WHITE BLOOD COUNT 6.7 10*3/uL (4.8-10.8)
[2016-11-07 06:33] LABS: BUN 31 mg/dl (7-24); CHLORIDE 105 mmol/L (98-107); CREATININE 0.81 mg/dL (0.55-1.02); MAGNESIUM 2.3 mg/dL (1.5-2.1); POTASSIUM 4.7 mmol/L (3.5-5.1); SODIUM 141 mmol/L (136-145); TOTAL PROTEIN 5.6 gm/dL (6.4-8.2)
[2016-11-07 06:34] LABS: ALBUMIN 2.2 gm/dl (3.1-4.5); ALKALINE PHOSPHATASE 43 U/L (45-117); SGOT/AST 10 IU/L (3-35); SGPT/ALT 9 U/L (12-78)
[2016-11-07 08:00] VITALS: BP 118/64
--- NOTE | 2016-11-07 08:14 | NUR ---
MEDICATED WITH PERCOCET FOR LEG PAIN SHE RATES A 7 ON THE PAIN SCALE.
--- NOTE | 2016-11-07 09:22 | NUR ---
PHYSICAL THERAPY Brianna was seen this AM 1:1 for her physical therapy session, Pt was supine in bed. Start with EX stretching to bilateral LE. Left knee around -25d extension and very tight. Followed by transfer up sitting with MAX A X 1, and having Brianna do as much as she can which was only a little help from her. Sitting balance once up MOD/MAX A x 1, just to hold her balance with C/O of right quad pain. Sit to Pt's tolerance then back supine with bilateral heels off the bed, Pt with call light, treatment time 25 min. VJ BAZZI INSTRUMENT TECHNICIAN.
--- NOTE | 2016-11-07 10:00 | NUR ---
AM MEDS TAKEN. NO COMPLAINTS OF PAIN.
--- NOTE | 2016-11-07 10:08 | NUR ---
Faxed updated information including therapy evaluations to [facility]. Patient was accepted. Precert will be initiated.
--- NOTE | 2016-11-07 11:41 | NUR ---
OCCUPATIONAL THERAPY PROGRESS NOTE Pt received 10 min 1:1 OT this date addressing orientation and feeding as per POC. Patient identified by hospital wrist band and correctly recited her name and date of when asked. Patient stated she was about to eat her yogurt from breakfast. Pt used spoon to eat yogurt reporting that at times her hand "shakes really bad". At this time, lab came in and charo blood followed by social work nurse to talk to patient and respiratory for breathing treatment. OT session ended at this time. Will continue OT POC established. Briana PONCE
[2016-11-07 12:00] VITALS: BP 110/50
--- NOTE | 2016-11-07 12:48 | NUR ---
PATIENT'S BLOOD SUGAR 260. PATIENT DRINKING REGULAR COKE. INSTRUCTED PATIENT THAT SHE SHOULD NOT BE DRINKING REGULAR COKE. PATIENT STATES SHE REFUSES TO DRINK DIET POP.
[2016-11-07 16:00] VITALS: BP 100/58
--- NOTE | 2016-11-07 17:59 | NUR ---
PATIENT MEDICATED WITH PERCOCET 2 TABS FOR LEG PAIN SHE RATES AN 8 ON THE PAIN SCALE.
[2016-11-07 20:00] VITALS: BP 104/52
[2016-11-08] VITALS: BP 117/86
--- NOTE | 2016-11-08 01:25 | NUR ---
PT REQUESTED AND WAS MEDICATED WITH PERCOCET FOR C/O GENERALIZED PAIN. CALL LIGHT IN REACH. WILL MONITOR
--- NOTE | 2016-11-08 02:00 | NUR ---
Patient resting quietly with no c/o discomfort. Respirations easy and regular. Vital signs stable. No overt distress. BLAINE NUNN R
[2016-11-08 06:45] LABS: BASO % 0.1 % (0.0-1.0); HEMATOCRIT 37.6 % (37.0-47.0); HEMOGLOBIN 12.5 g/dl (12.0-16.0); LYMPH # 1.3 10*3/uL (1.3-4.4); LYMPH % 9.9 % (27.0-41.0); MEAN CELL VOLUME 90.8 fl (81.0-99.0); MEAN CORPUSCULAR HGB 30.2 pg (27.0-31.0); MEAN CORPUSCULAR HGB CONC 33.2 g/dl (33.0-37.0); MEAN PLATELET VOLUME 10.6 fl (9.6-12.3); MONO # 1.1 10*3/uL (0.1-1.0); MONO % 8.4 % (3.0-9.0); NEUT # 10.2 10*3/uL (2.3-7.9); RED BLOOD COUNT 4.14 10*6/uL (4.10-5.10); RED CELL DISTRI WIDTH 13.2 % (0-14.5); WHITE BLOOD COUNT 12.7 10*3/uL (4.8-10.8)
[2016-11-08 06:46] LABS: PLATELET COUNT AUTOMATED 333 10*3/uL (130-400)
[2016-11-08 06:47] LABS: BUN 37 mg/dl (7-24); CHLORIDE 103 mmol/L (98-107); CREATININE 0.88 mg/dL (0.55-1.02); PHOSPHOROUS 2.2 mg/dL (2.5-4.9); POTASSIUM 4.4 mmol/L (3.5-5.1); SODIUM 138 mmol/L (136-145)
[2016-11-08 08:00] VITALS: BP 170/70
--- NOTE | 2016-11-08 08:10 | NUR ---
PT RESTING IN BED WITH EYES CLOSED. AWAKENS EASILY. RESP-EASY AND REGULAR. OXYGEN IN USE. NO C/O AT THIS TIME. REPOSITIONED IN BED. CALL LIGHT IN REACH. SEE SHIFT ASSESSMENT.
--- NOTE | 2016-11-08 09:57 | NUR ---
Patient resting in bed when this nurse went into the room to assess. Bilateral lower extremities normal in color cool to touch. Pedal pulses felt bilaterally. No open, scabbed or dry areas noted to bilateral lower extremities. Right and left buttock assessed. No open areas to either. Patient denied pain at time of assessment of these areas.
--- NOTE | 2016-11-08 10:00 | NUR ---
PHYSICAL THERAPY Brianna seen this AM and did not arouse, will stop back later today. VJ BAZZI INSPECTOR WATCH PARTS.
--- NOTE | 2016-11-08 10:25 | NUR ---
PT SLEEPING IN BED, VERY DROWSY THIS AM. PT CLAMMY AND SWEATING. BSG CHECKED-240. PT AWAKENS BUT GOES BACK TO SLEEP. REFUSED BREAKFAST AT THIS TIME. CALL LIGHT IN REACH. BED ALARM ON.
--- NOTE | 2016-11-08 11:30 | NUR ---
PT RESTING IN BED. TRYING TO EAT SOMETHING MORE AWAKE AT THIS TIME. BSG-216, SEE EMAR. NO C/O AT THIS TIME. CALL LIGHT IN REACH.
--- NOTE | 2016-11-08 11:33 | NUR ---
[facility] accepted patient-can be admitted when medically appropriate. Will need ambulance for tramsportation. Ohip Passar completed.
[2016-11-08 12:00] VITALS: BP 100/68
--- NOTE | 2016-11-08 14:30 | NUR ---
PT IVF INFUSING WITH NO PROBLEM. TOLERATED ROUTINE MED WITH NO PROBLEM. CALL LIGHT IN REACH.
[2016-11-08 14:49] LABS: BILIRUBIN NEGATIVE (NEGATIVE); BLOOD NEGATIVE (NEGATIVE); CLARITY CLOUDY (CLEAR); COLOR YELLOW (YELLOW); GLUCOSE NEGATIVE (NEGATIVE); KETONE TRACE (NEGATIVE); LEUKO ESTERASE 2+ (NEGATIVE); NITRITE NEGATIVE (NEGATIVE); SPECIFIC GRAVITY 1.025 (1.005-1.030); UROBILINOGEN >= 8.0 E.U./dl (0.2-1.0)
[2016-11-08 15:36] LABS: BACTERIA TRACE; YEAST 4+
[2016-11-08 16:00] VITALS: BP 111/54
--- NOTE | 2016-11-08 16:16 | NUR ---
Pt transferred supine to sidelying to sit with min/mod a x 1. Pt sat at eob x 7 min with cga x 1 and vc for hand placement for trunk support. Pt performed the following ex x 12 rep each at eob: ap, hip flexion, laq, and abduction, and glute sets. Tolerated Tx without incident. Total Tx time - 15 min this pm. Cont with POC to achieve established PT goals. DMcCoy, MOBILE SECURITY ARCHITECT
--- NOTE | 2016-11-08 16:20 | NUR ---
PT RESTING IN BED. BSG-124, SEE EMAR. TOLERATED ROUTINE MED WITH NO PROBLEM. IVFINFUSING WITH NO PROBLEM. CALL LIGHT IN REACH.
--- NOTE | 2016-11-08 16:53 | NUR ---
SPOKE WITH DR. Joe STILL REGARDING PT IS ON FENTANYL PATCH AT [facility]. SHE HAS ONE ON HER BACK PLACED ON 16. HE IS GOING TO HOLD IT FOR NOW AND SEE HOW SHE DOES ON MEDS WE ARE GIVING FOR PAIN. REMOVED PATCH AND DISCARDED IN SHARPS.
--- NOTE | 2016-11-08 18:00 | NUR ---
SLEEPING IN BED. RESP-EASY AND REGULAR. CALL LIGHT IN REACH.
[2016-11-08 20:00] VITALS: BP 129/64; BP 99/47
[2016-11-09] VITALS: BP 92/47
[2016-11-09 04:00] VITALS: BP 102/50
[2016-11-09 06:19] LABS: BASO % 0.1 % (0.0-1.0); EOS % 0.2 % (1.0-4.0); HEMOGLOBIN 10.5 g/dl (12.0-16.0); LYMPH # 2.7 10*3/uL (1.3-4.4); MEAN CELL VOLUME 91.4 fl (81.0-99.0); MEAN CORPUSCULAR HGB 29.1 pg (27.0-31.0); MEAN CORPUSCULAR HGB CONC 31.8 g/dl (33.0-37.0); MEAN PLATELET VOLUME 10.4 fl (9.6-12.3); MONO # 0.7 10*3/uL (0.1-1.0); MONO % 7.8 % (3.0-9.0); NEUT # 5.4 10*3/uL (2.3-7.9); NEUT % 60.2 % (47.0-73.0); RED BLOOD COUNT 3.61 10*6/uL (4.10-5.10); RED CELL DISTRI WIDTH 13.2 % (0-14.5)
[2016-11-09 06:41] LABS: BUN 34 mg/dl (7-24); CHLORIDE 103 mmol/L (98-107); CREATININE 0.83 mg/dL (0.55-1.02); MAGNESIUM 1.9 mg/dL (1.5-2.1); PHOSPHOROUS 2.9 mg/dL (2.5-4.9); POTASSIUM 4.3 mmol/L (3.5-5.1); SGOT/AST 9 IU/L (3-35); SGPT/ALT 10 U/L (12-78); SODIUM 140 mmol/L (136-145)
[2016-11-09 06:42] LABS: PLATELET COUNT AUTOMATED 222 10*3/uL (130-400)
[2016-11-09 06:43] LABS: ALKALINE PHOSPHATASE 36 U/L (45-117); TOTAL PROTEIN 4.8 gm/dL (6.4-8.2)
--- NOTE | 2016-11-09 07:30 | NUR ---
PT RESTING IN BED WITH EYES CLOSED. AWAKENS EASILY. RESP-EASY AND REGULAR. OXYGEN IN USE. PT MORE ALERT TODAY. TOELRATD ROUTINE MEDS WITH NO PROBLEM. CALL LIGHT IN REACH. SEE SHIFT ASSESSMENT.
[2016-11-09 08:00] VITALS: BP 116/56
--- NOTE | 2016-11-09 09:35 | NUR ---
PT C/O BACK AND BILATERAL LEG PAIN, RATES PAIN 8 ON PAIN SCALE 0-10. MEDICATED WITH PERCOCET PO PER PRN ORDER, SEE EMAR. CALL LIGHT IN REACH.
--- NOTE | 2016-11-09 10:15 | NUR ---
PT RESTING IN BED. STATES PAIN MEDICATION HELPED. CALL LIGHT IN REACH.
[2016-11-09 12:00] VITALS: BP 108/52
--- NOTE | 2016-11-09 13:02 | NUR ---
PHYSICAL THERAPY Brianna was seen this PM 1:1 for her physical therapy treatment. Pt transfer supine/sit very slow with MOD A X 1, and much verbal cueing that she can do this. Once up working on sitting balance X 25 min with rocking, leaning right and left and slight trunk rotating with rest as needed. Woring in act LAQ's and ankle pumps to tolerance with rest as needed. Today was Brianna's best for me, Pt back supine MOD A X 1, with call light. VJ BAZZI CASING RUNNING MACHINE TENDER.
--- NOTE | 2016-11-09 13:11 | NUR ---
Patient is discharged and will be admitted to [facility] ambulance to transport. party supply specialist time us 3:00pm. Brayden, Devika grider.
--- NOTE | 2016-11-09 14:00 | NUR ---
RESTING IN BED AT HER SIDE. TOLERATED ROUTINE MED WITH NO PROBLEM. CALL LIGHT IN REACH.
--- NOTE | 2016-11-09 14:40 | NUR ---
Discharge cancelled. Informed [facility]. Patient and aware.
--- NOTE | 2016-11-09 15:39 | NUR ---
PT C/O MUSCLE SPASM. MEDICATED WITH ZANAFLEX. MEDICATED WITH ZANAFLEX PO PER PRN ORDER, CALL LIGHT IN REACH.
[2016-11-09 16:00] VITALS: BP 108/52
--- NOTE | 2016-11-09 16:30 | NUR ---
PT PT RESTING IN BED WITH AT HER SIDE. RESP-EASY AND REGULAR. NO C/O AT THIS TIME. REPOSITION IN BED. CALL LIGHT IN REACH. SEE SHIFT ASSESSMENT.
--- NOTE | 2016-11-09 17:35 | NUR ---
CALLED DR. ZABALA ANSWERING SERVICE, THEY WILL PAGE DR. PRUITT REGARDING CONSULT.
--- NOTE | 2016-11-09 17:45 | NUR ---
DR. PRUITT CALLED AWARE OF CONSULT.
--- NOTE | 2016-11-09 18:30 | NUR ---
PT RESTING IN BED WAITING FOR DINNER. NO C/O AT THIS TIME. CALL LIGHT IN REACH.
[2016-11-09 20:00] VITALS: BP 96/48
--- NOTE | 2016-11-09 22:39 | NUR ---
PRN PERCOCET AND ZANAFLEX GIVEN AT PT. REQUEST FOR PAIN.
--- NOTE | 2016-11-09 23:39 | NUR ---
PRN MEDICATIONS EFFECTIVE, PT. HAS NO COMPLAINTS OF PAIN.
[2016-11-10] VITALS: BP 115/54
--- NOTE | 2016-11-10 03:46 | NUR ---
24 HR chart check completed.
[2016-11-10 06:14] LABS: BASO % 0.1 % (0.0-1.0); EOS % 0.4 % (1.0-4.0); HEMATOCRIT 33.8 % (37.0-47.0); HEMOGLOBIN 11.2 g/dl (12.0-16.0); LYMPH # 2.9 10*3/uL (1.3-4.4); LYMPH % 27.7 % (27.0-41.0); MEAN CELL VOLUME 91.6 fl (81.0-99.0); MEAN CORPUSCULAR HGB 30.4 pg (27.0-31.0); MEAN CORPUSCULAR HGB CONC 33.1 g/dl (33.0-37.0); MEAN PLATELET VOLUME 10.3 fl (9.6-12.3); MONO # 0.7 10*3/uL (0.1-1.0); MONO % 7.1 % (3.0-9.0); NEUT # 6.5 10*3/uL (2.3-7.9); NEUT % 63.1 % (47.0-73.0); PLATELET COUNT AUTOMATED 222 10*3/uL (130-400); RED BLOOD COUNT 3.69 10*6/uL (4.10-5.10); RED CELL DISTRI WIDTH 13.4 % (0-14.5); WHITE BLOOD COUNT 10.3 10*3/uL (4.8-10.8)
[2016-11-10 06:29] LABS: ALBUMIN 2.1 gm/dl (3.1-4.5); ALKALINE PHOSPHATASE 41 U/L (45-117); BUN 30 mg/dl (7-24); CHLORIDE 104 mmol/L (98-107); CREATININE 0.82 mg/dL (0.55-1.02); POTASSIUM 4.5 mmol/L (3.5-5.1); SGOT/AST 8 IU/L (3-35); SGPT/ALT 13 U/L (12-78); SODIUM 138 mmol/L (136-145); TOTAL PROTEIN 5.1 gm/dL (6.4-8.2)
--- NOTE | 2016-11-10 07:35 | NUR ---
PT RESTING IN BED WITH EYES CLOSED. AWAKENS EASILY. RESP-EASY AND REGULAR. OXYGEN IN USE. NO C/O AT THIS TIME. CALL LIGHT IN REACH. SEE SHIFT ASSESSMENT.
[2016-11-10 08:00] VITALS: BP 108/58
--- NOTE | 2016-11-10 09:10 | NUR ---
PT TOLERATED ROUTINE MED WITH NO PROBLEM. C/O BACK PAIN, RATES PAIN 7 ON PAIN SCALE 0-10. MEDICATED WITH PERCOCET PO PER PRN ORDER, SEE EMAR. PT REQUESTING MUSCLE RELAXER, MEDICATED WITH ZANAFLEX PO PER PRN ORDER, SEE EMAR. CALL LIGHT IN REACH.
--- NOTE | 2016-11-10 09:40 | NUR ---
Nutritional Support Services Note: Pt ordered a 1800cal diabetic diet with Boost Glucose Control tid with meals. Appetite is good. Has a good understanding of her diet. No questions at this time. No other nutrition intervention needed. Ro Liu
--- NOTE | 2016-11-10 10:00 | NUR ---
RESTING IN BED. STATES PAIN MEDICATION WAS EFFECTIVE. CALL LIGHT IN REACH.
--- NOTE | 2016-11-10 10:53 | NUR ---
PHYSICAL THERAPY Brianna improving some on her transfer up and sitting side of bed. Waking Brianna work for her transfer up into sitting side of bed with MIN A X 1 today and that is an improvement. Pt sitting X 20 min, with act rocking, right and left leaning to tolerance with rest as needed but with improvement, treatment time 26 min. VJ BAZZI SUPPLY CRIB ATTENDANT.
[2016-11-10 12:00] VITALS: BP 110/78
--- NOTE | 2016-11-10 13:44 | NUR ---
LAB CALLED WITH URINE RESULT SPOKE WITH DR. Joe HYATT MADE AWARE THAT SHOWING YEAST NOT GPC.
--- NOTE | 2016-11-10 14:02 | NUR ---
CALLED DR. ZABALA OFFICE THEY WILL PAGE HER.
[2016-11-10 16:00] VITALS: BP 118/66
--- NOTE | 2016-11-10 16:20 | NUR ---
PT RESTING IN BED. TOLERATED ROUTINE MED WITH NO PROBLEM. [id number], SEE EMAR. CALL LIGHT IN REACH. NO C/O AT THIS TIME.
--- NOTE | 2016-11-10 18:00 | NUR ---
SLEEPING IN BED. RESP-EASY AND REGULAR. CALL LIGHT IN REACH. BED ALARM ON.
[2016-11-10 20:00] VITALS: BP 106/45
--- NOTE | 2016-11-10 20:11 | NUR ---
PRN PAIN MED AND MUSCLE RELAXANT GIVEN FOR 8/10 GENERALIZED BODY PAIN.
--- NOTE | 2016-11-10 21:11 | NUR ---
PRN PAIN MED EFFECTIVE, PT REPORTS 4/10 PAIN NOW.
--- NOTE | 2016-11-10 23:34 | NUR ---
pt refused sa tx
[2016-11-11] VITALS: BP 117/51
--- NOTE | 2016-11-11 04:29 | NUR ---
PT. AWAKENED WHILE DOING 0400 ROUNDS AND REQUESTED PERCOCET AND ZANAFLEX D/T GENERALIZED PAIN RATED 7/10 ON 0-10 SCALE. PER PT. ACHY AND CHRONIC. PT. CALL LIGHT WITHIN REACH, BED IN LOWEST POSITION, WHEELS LOCKED.
[2016-11-11 08:00] VITALS: BP 100/50
[2016-11-11 12:00] VITALS: BP 119/61
[2016-11-11] MEDS ORDERED: DURAGESIC1 EAC1 TD (12:19)
[2016-11-11] MEDS ORDERED: PERCOCET 10-321 EACH PO (12:19)
[2016-11-11] MEDS ORDERED: LYRICA300 MG PO (12:19)
--- NOTE | 2016-11-11 12:21 | NUR ---
MEDICATED WITH ZANAFLEX FOR MUSCLE SPASMS OF BACK, NECK AND LEGS.
--- NOTE | 2016-11-11 13:34 | NUR ---
Discharge instructions reviewed with patient/family. Patient receptive and verbalizes understanding. Follow-up care arranged. Written instructions given to patient/family. JOSE HAIDER
--- NOTE | 2016-11-11 13:34 | NUR ---
PATIENT TRANSPORTED OFF FLOOR WITH [facility].
--- NOTE | 2016-11-13 08:13 | NUR ---
PHYSICAL THERAPY CO-SIGN I approve of the Phyical Therapy notes written above. CRUZ KELLEY PT
--- NOTE | 2016-11-14 07:54 | NUR ---
OCCUPATIONAL THERAPY CO-SIGN I approve of the Occupational Therapy notes written above. ROSALBA MCNULTY
== END 2016-11-11 13:34 | disposition other institution (70) | DRG 871 ==
LOC: ED 08:48 → 5E 11:59 → EDHOLD 11:59 → ICCU 12:05 → 5E 11-05 13:11
PROVIDERS: Emergency Medicine; Internal Medicine; Internal Medicine Nephrology; ADMIT Internal Medicine
DX: A41.9 Sepsis, unspecified organism (principal); E43 Unspecified severe protein-calorie malnutrition; J96.21 Acute and chronic respiratory failure with hypoxia; G93.41 Metabolic encephalopathy; L89.311 Pressure ulcer of right buttock, stage 1; J18.1 Lobar pneumonia, unspecified organism; E11.622 Type 2 diabetes mellitus with other skin ulcer; E87.8 Other disorders of electrolyte and fluid balance, not elsewhere classified; N39.0 Urinary tract infection, site not specified; E87.1 Hypo-osmolality and hyponatremia; J44.1 Chronic obstructive pulmonary disease with (acute) exacerbation; J44.0 Chronic obstructive pulmonary disease with (acute) lower respiratory infection; R65.20 Severe sepsis without septic shock; F17.200 Nicotine dependence, unspecified, uncomplicated; I25.10 Atherosclerotic heart disease of native coronary artery without angina pectoris; K21.9 Gastro-esophageal reflux disease without esophagitis; G30.9 Alzheimer's disease, unspecified; F02.80 Dementia in other diseases classified elsewhere, unspecified severity, without behavioral disturbance, psychotic disturbance, mood disturbance, and anxiety; B96.89 Other specified bacterial agents as the cause of diseases classified elsewhere; I87.2 Venous insufficiency (chronic) (peripheral); B96.5 Pseudomonas (aeruginosa) (mallei) (pseudomallei) as the cause of diseases classified elsewhere; D64.9 Anemia, unspecified; I48.0 Paroxysmal atrial fibrillation; E66.09 Other obesity due to excess calories; M41.80 Other forms of scoliosis, site unspecified; Z99.81 Dependence on supplemental oxygen; Z98.51 Tubal ligation status; Z90.49 Acquired absence of other specified parts of digestive tract; Z95.5 Presence of coronary angioplasty implant and graft; Z82.49 Family history of ischemic heart disease and other diseases of the circulatory system; Z83.3 Family history of diabetes mellitus; Z88.0 Allergy status to penicillin; Z79.1 Long term (current) use of non-steroidal anti-inflammatories (NSAID); Z79.51 Long term (current) use of inhaled steroids; Z79.4 Long term (current) use of insulin; Z79.899 Other long term (current) drug therapy; Z98.41 Cataract extraction status, right eye; Z79.01 Long term (current) use of anticoagulants; Z68.38 Body mass index [BMI] 38.0-38.9, adult

== ENCOUNTER 2016-12-06 00:37 | Inpatient (IN) | payer MEDICARE, OTHER ==
[2016-12-06] VITALS (15 sets, daily range): BP systolic 90–122; BP diastolic 42–104
[~2016-12-06] VITALS: Ht 154.9 cm; Wt 90.3 kg
--- NOTE | ~2016-12-06 | PR ---
[place], [place] PROGRESS NOTE NAME: VLADISLAV GALDAMEZ [facility] #: [id number] UNIT #: [id number] ROOM: 502 DOCTOR: ANNIE MARTIN MD,FRANCESCO BIRTHDATE: [birth year] DOS: 12/08/2016 SUBJECTIVE: She was independently seen with [id number] encounter for today's visit. The history was confirmed. Physical examination performed. All the labs were reviewed. Any changes in the medical management personally made. The assessment personally completed for today's visit as well. The patient has been currently noted with continued reduction and improvement in symptoms of shortness breath, cough. Denies symptoms of chest pain or hemoptysis. OBJECTIVE: VITAL SIGNS: For the patient recorded as temperature was noted as normal, respiratory rate 20, heart rate 91, blood pressure 112/50. Pulse oxygen saturation on 5 L nasal cannula with 95% saturation, previously with BiPAP 40% oxygen was 100% saturation. HEENT: Examination shows no new change. NECK: Supple. CARDIOVASCULAR: S1, S2 audible. LUNGS: Noted with decreased breath sounds still noted with crackles in the lung bases, more on the left than the right side. ABDOMEN: Soft, nontender. EXTREMITIES: Show no edema. LABORATORY DATA: Today, CBC: Hemoglobin 9.4, hematocrit 29.7, WBC count and platelet count normal. BMP of the patient this morning noted with normal BUN and creatinine. Blood culture for the patient was noted no bacterial growth from the 28 of this month. The urine culture was noted with evidence of Pseudomonas aeruginosa. IMPRESSION: 1. The patient with acute on chronic hypoxic respiratory failure secondary to acute large pneumonia considered from aspiration, treated for gram-positive and gram-negative organisms. 2. Urinary tract infection, Pseudomonas aeruginosa. 3. Overall debility. The patient with obstructive sleep apnea disorder. 4. Anemia. PLAN OF TREATMENT: The patient has been ordered a chest x-ray to be done tomorrow morning, PA and lateral view to be assessed and progression with the pneumonia. Clinically, the patient has been responding to the treatment and showing improvement and resolution of the acute symptom. She has been also getting anticoagulation long-term for the patient for atrial fibrillation as well. Adjustment of antibiotics. The patient might need to be done tomorrow morning after reviewing the chest x-ray of the patient and assessment of the finding of culture results. NOTE: I made a note which was done by the medical representative was approved. [place], [place] PROGRESS NOTE NAME: VLADISLAV GALDAMEZ Nanette UNIT #: [id number] ROOM: [facility] DOCTOR: FRANCESCO NOVA MD BIRTHDATE: [birth year] FRANCESCO VALENCIA MD CM:PNTRANS [phone] FRANCESCO MARTIN MD [id number]/08/[id number] interface
--- NOTE | ~2016-12-06 | PR ---
[place], [place] PROGRESS NOTE NAME: VLADISLAV GALDAMEZ [facility] #: [id number] UNIT #: [id number] ROOM: 502 DOCTOR: ANNIE MARTIN MD,FRANCESCO BIRTHDATE: [birth year] DOS: 12/10/2016 SUBJECTIVE: The patient has been still noted with cough, but there was not much sputum expectoration at times abdominal pain. Continue antibiotics. The patient which were modified yesterday based on the current culture results. OBJECTIVE: VITAL SIGNS: For the patient which were recorded. The patient showed the temperature noted as normal. The respiratory rate recorded as 18, heart rate 89, blood pressure 115/57. The pulse oxygen saturation recorded on 3 liters, 95% saturation. HEENT: Showed no new change. NECK: Supple. CARDIOVASCULAR: S1, S2 audible. LUNGS: The patient was noted with decreased breath sounds in the left lung. ABDOMEN: Soft, obese, nontender. EXTREMITIES: Show no edema. LABORATORY DATA: BMP was noted as normal. There was no other labs rather done today. IMPRESSION: 1. Acute pneumonia, which is treated for the gram-negative infection in the left lower lobe, most likely related to the aspiration. 2. Obstructive sleep apnea disorder. 3. Associated pleural fluid which is noticed small in the left side. PLAN OF MANAGEMENT: Continuation of current therapy, plan and management. Assessment for [facility] facility placement. Other supportive therapy, plan and management as in progress. Usual care. FRANCESCO VALENCIA MD CM:PNTRANS [phone] FRANCESCO MARTIN MD 12/11/16 0304 interface
--- NOTE | ~2016-12-06 | PR ---
[place], [place] PROGRESS NOTE NAME: VLADISLAV GALDAMEZ UNIT #: [id number] ROOM: 502 DOCTOR: ANNIE MARTIN MD,FRANCESCO BIRTHDATE: [birth year] DOS: 12/09/2016 SUBJECTIVE: She has been noted with reduction in respiratory symptoms and cough. Denies symptoms of chest pain or any abdominal pain. Continued on intravenous antibiotics for the acute pneumonia. OBJECTIVE: VITAL SIGNS: Showed normal temperature, respirations 18, heart rate 76, blood pressure 106/48. Pulse oxygen saturation on 3 L nasal cannula 96% saturation recorded. HEENT: Chronic obesity. NECK: Supple. CARDIOVASCULAR: S1, S2 audible. LUNGS: Without any wheezing or crackles. Breaths noted decreased in lower portion of the lungs. ABDOMEN: Soft, nontender, and obese. EXTREMITIES: Show chronic obesity. LABORATORY DATA: BMP of the patient was noted as normal. CBC on 12/09/2016, hemoglobin 9.1, hematocrit 29.3, and platelet count was normal. The chest x-ray that was done this morning was reviewed and shows infiltration with associated possible pleural fluid in the left lower lobe. The finding essentially would be considered the same as previously. IMPRESSION: 1. Acute pneumonia with acute on chronic hypoxic respiratory failure. 2. Possibility of some pleural fluid with associated current acute pneumonia may not be completely excluded. 3. Debility. 4. Chronic obesity. 5. Obstructive sleep apnea disorder. 6. Urinary tract infection, Pseudomonas aeruginosa. PLAN OF TREATMENT: Continuation of the current antibiotics with Gram-negative coverage. The other antibiotic at this time will be discontinued. The Levaquin will be discontinued, meropenem is the only antibiotic that will be continued for the current management of pneumonia. Monitor chest x-ray periodically. The patient might be considered for discharge to the nursing facility may be in the next 24-48 hours with IV therapy. Continue physical therapy and other medical management. Continue use of BiPAP during the current hospitalization for medical management of sleep apnea disorder and respiratory status. Other usual plan of care and treatment. Addition to treatment changes need to be done for further therapies. If necessary, assess the pleural fluid with ultrasound as well. [place], [place] PROGRESS NOTE NAME: VLADISLAV GALDAMEZ UNIT #: [id number] ROOM: [facility] DOCTOR: FRANCESCO NOVA MD BIRTHDATE: [birth year] FRANCESCO VALENCIA MD CM:PNTRANS [phone] FRANCESCO MARTIN MD 12/10/[id number] interface
--- NOTE | ~2016-12-06 | PR ---
[place], [place] PROGRESS NOTE [id number] #: [id number] ROOM: 502 DOCTOR: ANNIE MARTIN MD,FRANCESCO BIRTHDATE: [birth year] DOS: 12/11/2016 SUBJECTIVE: She has been comfortably resting on the bed at this time without any distress. The oxygen supplementation has been continued. The patient has to use the BiPAP some hours at night as well. OBJECTIVE: VITAL SIGNS: For the patient, which was recorded, the patient shows a temperature noted as normal at this time. The respiratory rate of 16-18. HEENT: Showed no new change. NECK: Supple. CARDIOVASCULAR: S1, S2 is audible. LUNGS: The patient was noted without any wheeze or crackles, decreased breath sounds still noted in the left lower portion of the lung. ABDOMEN: Soft, nontender. Bowel sounds present. IMPRESSION: 1. The patient who has been currently noted with acute pneumonia with associated small pleural fluid in the left lower lobe secondary to aspiration pneumonia, currently treated with antibiotics. 2. Resolving acute on chronic hypoxic respiratory failure. 3. Bedbound status. The patient noted mostly the patient's decreased mobility. PLAN OF TREATMENT: The patient will be continued on current therapy, plan and management, awaiting for shelter facility decision. Chest x-ray will be ordered to assess the patient's current pleural fluid as well as acute pneumonia. FRANCESCO VALENCIA MD CM:PNTRANS [phone] FRANCESCO MARTIN MD 12/12/16 0013 interface
--- NOTE | ~2016-12-06 | CON ---
[place], [place] REPORT OF CONSULTATION NAME: VLADISLAV GALDAMEZ [facility] #: [id number] UNIT #: [id number] ROOM: 502 DOCTOR: ANNIE MARTIN MDFRANCESCO BIRTHDATE: [birth year] DOS: 12/07/2016 PULMONARY CONSULTATION CONSULTATION REQUESTED BY: Dr. Deepa Morales. REASON FOR CONSULTATION: To assess the patient for acute respiratory changes with pneumonia and other respiratory problems. HISTORY OF PRESENT ILLNESS: This is a 66-year-old white female, who has been known to me in the past. The patient has been treated for chronic hypoxic respiratory failure, COPD and congestive heart failure and debility in the nursing facility. The patient has been brought to the hospital. The patient admitted under the hospitalist service on 12/06/2016. The patient was sent from the nursing facility as the patient was noted with changes in mental status, the patient with hypoxia. The symptoms of the patient has been noted significantly worsened. She was not noted arousable, the patient able to answer the question ____. The temperature was also noted elevated for this patient about 101 degrees Fahrenheit. The patient has been assessed in the Emergency Room and has been admitted to the hospital. CT scan of the head for this patient was completed. The patient had a CT of the chest done for this patient that was noted with acute pneumonia and consolidation in the left lower lobe for this patient. This morning, the patient, has been noted more awake this morning. Chest congestion of the patient was noted. Denied symptoms of hemoptysis. The patient was noted with symptoms of coughing, chest congestion. She has used the BiPAP last night and this morning, using oxygen supplementation with the nasal cannula. The review of the medical record for this patient noted the last admission in this hospital in October 2016. The patient was admitted to the hospital from 11/03/2016 and the discharge for the patient to [facility] on 11/11/2016. The patient was managed at that time for the acute pneumonia for this patient, urinary tract infection, respiratory failure, and other issues. REVIEW OF SYSTEMS: CONSTITUTIONAL SYMPTOMS: She was noted with symptoms of fatigue and tiredness and not noted any symptoms of fever or chills. EYES: Denies burning, redness, or tenderness. EARS, NOSE, THROAT SYMPTOMS: No sore throat, hoarseness, otalgia, postnasal drainage. CARDIOVASCULAR: Denies any pain of the lower extremities noted with edema of the lower extremities intermittently. Denies angina pain or palpitations. GASTROINTESTINAL SYMPTOMS: Denies dysphagia, nausea, vomiting, diarrhea, abdominal pain, hematemesis, melena, or hematochezia. CENTRAL NERVOUS SYSTEM: Denies dizziness, headache, diplopia or syncopal episodes. Central nervous the patient was noted without any seizures. MUSCULOSKELETAL: Chronic scoliosis of the spine for this patient with limited arthritis and decreased mobility known from previously. Remaining systems were reviewed with the patient, they were noted all negative. [place], [place] REPORT OF CONSULTATION NAME: VLADISLAV GALDAMEZ UNIT #: [id number] ROOM: 502 DOCTOR: SAKSHI NOVA MDM BIRTHDATE: [birth year] PAST MEDICAL HISTORY: 1. Noted with history of COPD with centrilobular emphysema. 2. History of past pneumonia as well. 3. History of nicotine dependence. Still smoking few cigarettes at the nursing facility intermittently. 4. History of panniculitis of the anterior abdominal wall. 5. Obesity hypoventilation syndrome. 6. Obstructive sleep apnea disorder, currently treated with BiPAP empirically at the nursing facility. 7. Diabetic nephropathy and acute congestive heart failure with diastolic dysfunction. 8. Coronary artery disease. 9. Gastroesophageal reflux. 10. History of aortic stenosis. 11. Hypercholesterolemia. 12. History of chronic obesity. PAST SURGICAL HISTORY: 1. Tubal ligation. 2. Cataract extraction in the right eye. 3. Right knee arthroscopy. 4. Bunion removal. 5. Cardiac catheterization. 6. Lumbar laminectomy. 7. Fiberoptic bronchoscopy done on 09/05/2016 admission. 8. Intubation and mechanical ventilation previously as well. SOCIAL HISTORY: The patient is , currently a resident of nursing facility. The patient denies any history of alcohol use, illicit drug use, tobacco use noted for this patient since teenager up to 3 packs of cigarettes a day. Currently smoking less than a pack of cigarettes per day. Denies history of alcohol use or illicit drug use. FAMILY HISTORY: Not reported for diabetes, hypertension and stroke. MEDICATIONS: Current administered medications noted use of Fenofibrate, Lipitor, digoxin, Famotidine, Evista, omeprazole, Cymbalta, Eliquis, tizanidine, DuoNeb, sliding scale insulin coverage, IV vancomycin, Reglan, Levaquin, IV meropenem, and other p.r.n. medications administration. DRUG ALLERGIES: ALLERGY TO THE PENICILLINS. PHYSICAL EXAMINATION: GENERAL: A 66-year-old female currently noted to be more awake and alert this morning. Height of 5 feet 1 inch, weight of 199 pounds, BMI of 37.6. VITAL SIGNS: Temperature 100.8 degree Fahrenheit, normal temperature this morning, respiratory rate ranged between 20-22. The heart rate 93-112, blood pressure 110/47-108/57. Intake for the patient recorded 1930 mL, output 2251 mL ____. The pulse oxygen saturation of the patient was noted upon arrival in the [place], [place] REPORT OF CONSULTATION NAME: VLADISLAV GALDAMEZ UNIT #: [id number] ROOM: [facility] DOCTOR[facility] [birth year] Emergency Room, the patient on 50% with the BiPAP application for this patient as 99% saturation this morning on 5 L nasal cannula 94% saturation. HEENT: Examination shows head was atraumatic. Eyes nonicteric. NECK: Supple, were noted some scoliosis. CARDIOVASCULAR SYSTEM: S1, S2 audible. LUNGS: The patient was noted with general reduction of the breath sounds without any wheezing. Scattered crackles of the lungs for the patient was noted in the left lung. ABDOMEN: Noted obesity. EXTREMITIES: The patient shows no edema at the present time. LABORATORY ASSESSMENT: Lactic acid yesterday, the patient was noted at 1.6. CBC of the patient of 12/06/2016, WBC count 17.5, hemoglobin and hematocrit normal, platelet count was normal. The ABG of the patient yesterday, 100% oxygen, pH of 7.42, pCO2 of 39, pO2 of 97. PT/PTT of patient yesterday were noted as normal. CMP yesterday, the patient's glucose 155, BUN and creatinine was normal, sodium 132, total bilirubin 1.4, albumin 2.5. The CT scan of the head, which was done without contrast on the patient on 12/06/2016 was noted as no acute intracranial pathology. Diffuse paranasal sinus disease was noted. The lactic acid repeated was normal. The troponin minimally elevated at 0.53 yesterday. The arterial blood gas repeated again pH of 7.41, pCO2 of 42, pO2 of 64-68 nasal cannula. CBC for the patient that was done for the patient this morning showed WBC count 11.7, hemoglobin 9.9, hematocrit 30.2, platelet count of 200,000. CMP of the patient this morning, glucose 139, BUN and creatinine were normal. Potassium 3.2. The total protein of 5.8, albumin 2.0. Urine culture noted heavy growth of gram-negative bacillus. The chest x-ray of the patient that was done for this patient shows left lower lobe area of infiltration was noted. CT of the patient that was done 12/06/2016 was personally reviewed for the patient shows evidence of a large area of consolidation for this patient was noted in the left lower lobe. Left adrenal lesion for this patient was noted with a small adenoma findings. Small right lower lobe infiltration was also noted. IMPRESSION: 1. The patient noted with recurrent pneumonia involving the left lower lobe for this patient and some in the right lower lobe with possibility of aspiration pneumonia would be considered. The etiology infection to be considered as gram-positive and gram-negative organism because of frequent hospitalization with use of the intravenous antibiotic for the patient several times for this patient stay in the nursing facility. The patient with acute on chronic severe hypoxic respiratory failure. 2. History of chronic obstructive pulmonary disease as well. 3. History of atrial fibrillation. The patient is on chronic anticoagulation. 4. History of aortic stenosis as well. 5. Morbid obesity. 6. Decreased mobility. 7. Type 2 diabetes mellitus. 8. History of obstructive sleep apnea disorder. PLAN OF TREATMENT: The BiPAP use has been noted effective in improving her [place], [place] REPORT OF CONSULTATION NAME: VLADISLAV GALDAMEZ UNIT #: [id number] ROOM: [facility] DOCTOR: ANNIE MARTIN MD,FRANCECSO BIRTHDATE: [birth year] acute hypoxic respiratory failure, chronic hypoxic respiratory failure, to be continued on the patient p.r.n. during the day. Continue nighttime. The patient could be transferred from intensive care unit to telemetry floor. Continue current antibiotic with reduction in spectrum based on the culture results of the sputum for this patient and the blood. Continue the bronchodilators. Bronchoscopy could be done if the pneumonia would not resolve for this patient to rule out any endobronchial obstruction. The patient with the mucus or others. Other supportive therapy, plan and management. Nicotine replacement therapy will be ordered for this patient because of recurrent persistent nicotine abuse. Other additional treatment changes the patient needs to be done for the patient based on progression of the illness. Follow up chest x-ray of the patient for monitoring of the pneumonia was ordered to be done in the next couple of days. All other supportive therapy, plan of management to be continued. The addition of treatment changes for this patient based on the progression of the illness. DVT prophylaxis will be accomplished. The patient continued on Eliquis for anticoagulation. Other supportive therapy, plan of management care and treatment. Usual care, other supportive plan of management. Additional treatment changes will continue for the patient based on the progression of the illness. Usual care, other supportive plan of therapy and care. We will follow the patient along with you. Thank you for allowing me to participate in the care of this patient. FRANCESCO VALENCIA MD CM:CONSTR:REPORT OF CONSULTATION 1149 12/07/16 1659 interface
--- NOTE | ~2016-12-06 | PR ---
[place], [place] PROGRESS NOTE NAME: VLADISLAV GALDAMEZ UNIT #: [id number] ROOM: 502 DOCTOR: LAURIE LEARY DO BIRTHDATE: [birth year] DOS: 12/08/2016 SUBJECTIVE: The patient was seen and examined this morning. The patient denies any complaints or concerns at this time. OBJECTIVE: VITAL SIGNS: Temperature 97.6, pulse 71, respiratory rate 20, blood pressure 90/52, pulse ox was 95 on 5 liters nasal cannula. HEENT: Shows no changes. NECK: Supple. LUNGS: Mild cough noted, diminished at the bases, otherwise no wheezing or rhonchi noted. CARDIAC: S1, S2 audible. ABDOMEN: Soft, positive bowel sounds, nontender, nondistended. EXTREMITIES: Showed no edema, clubbing or cyanosis. LABORATORY DATA: White cell count of 6, hemoglobin 9.4, platelets 16.7. Chemistry; BUN of 16, creatinine of 0.69. ASSESSMENT: 1. Left lower lobe pneumonia/consolidation gram-positive versus gram-negative organism involved. 2. Acute on chronic severe hypoxic respiratory failure. 3. History of chronic obstructive pulmonary disease. 4. History of atrial fibrillation. 5. Morbid obesity. 6. Obstructive sleep apnea. 7. Type 2 diabetes mellitus. PLAN: 1. Continue the patient on q. 4 hours. 2. Continue placement on BiPAP as needed. 3. Supportive care. LAURIE LEARY DO [place], [place] PROGRESS NOTE NAME: VLADISLAV GALDAMEZ UNIT #: [id number] ROOM: [facility] DOCTOR: LAURIE LEARY DO BIRTHDATE: [birth year] FRANCESCO VALENCIA MD CM:PNTRANS [id number] LAURIE LEARY DO 12/08/16 1233 interface
[~2016-12-06 00:37] MED LIST changes: +APAP500 MG PO; +BREO ELLIPTA 11 EACH INH; +CARTIA XT240 MG PO; +DURAGESIC1 EAC1 TD; +FENOFIBRATE MI200 MG PO; +HUMALOG100 UNIT/1 SC; +INCRUSE ELLI62.5 MCG INH; +NICODERM CQ1 EACH TD; +OMEPRAZOLE MAGN20 MG PO; +TRIAMTERENE-HC1 EACH PO
[2016-12-06 01:10] LABS: BASO % 0.2 % (0.0-1.0); EOS % 0.1 % (1.0-4.0); HEMATOCRIT 36.4 % (37.0-47.0); HEMOGLOBIN 12.1 g/dl (12.0-16.0); LYMPH # 1.7 10*3/uL (1.3-4.4); LYMPH % 9.7 % (27.0-41.0); MEAN CELL VOLUME 87.5 fl (81.0-99.0); MEAN CORPUSCULAR HGB 29.1 pg (27.0-31.0); MEAN CORPUSCULAR HGB CONC 33.2 g/dl (33.0-37.0); MONO # 0.9 10*3/uL (0.1-1.0); MONO % 5.3 % (3.0-9.0); NEUT # 14.7 10*3/uL (2.3-7.9); NEUT % 84.2 % (47.0-73.0); PLATELET COUNT AUTOMATED 245 10*3/uL (130-400); RED BLOOD COUNT 4.16 10*6/uL (4.10-5.10); RED CELL DISTRI WIDTH 17.3 % (0-14.5); WHITE BLOOD COUNT 17.5 10*3/uL (4.8-10.8)
[2016-12-06 01:19] LABS: ABG BASE EXCESS 1.7 mmol/L (-2.0-2.0); ABG HCO3 25.2 mmol/l (22-26); ABG O2 SATURATION 97.1 % (95-97); ARTERIAL BLOOD GAS PCO2 39.8 mmHg (35-45); ARTERIAL BLOOD GAS PH 7.424 (7.35-7.45)
[2016-12-06 01:20] LABS: ACT PARTIAL THROMBO TIME 29.5 SECONDS (20.8-31.5); INTERNATIONAL NORM RATIO 1.1 (2.0-3.5)
[2016-12-06 01:20] LABS: BILIRUBIN NEGATIVE (NEGATIVE); BLOOD NEGATIVE (NEGATIVE); CLARITY SL CLOUDY (CLEAR); COLOR YELLOW (YELLOW); GLUCOSE NEGATIVE (NEGATIVE); KETONE NEGATIVE (NEGATIVE); LEUKO ESTERASE TRACE (NEGATIVE); NITRITE NEGATIVE (NEGATIVE); SPECIFIC GRAVITY 1.025 (1.005-1.030); UROBILINOGEN 0.2 E.U./dl (0.2-1.0)
[2016-12-06 01:26] LABS: ALBUMIN 2.5 gm/dl (3.1-4.5); ALKALINE PHOSPHATASE 80 U/L (45-117); BUN 19 mg/dl (7-24); CHLORIDE 97 mmol/L (98-107); CREATININE 0.82 mg/dL (0.55-1.02); LIPASE 77 U/L (73-393); MAGNESIUM 1.7 mg/dL (1.5-2.1); POTASSIUM 4.2 mmol/L (3.5-5.1); SGOT/AST 8 IU/L (3-35); SGPT/ALT 11 U/L (12-78); SODIUM 132 mmol/L (136-145); TOTAL PROTEIN 6.6 gm/dL (6.4-8.2)
[2016-12-06 01:27] LABS: TROPONIN I 0.031 ng/ml (<0.045)
[2016-12-06 01:29] LABS: EPITHELIAL CELLS 35-40
[2016-12-06 01:30] LABS: YEAST TRACE
--- NOTE | 2016-12-06 04:00 | NUR ---
A 66, admitted to 5E, under the services of DORON Richmond DO with a diagnosis of CHANGE IN MENTAL STATUS. Chief complaint is CHANGE IN MENTAL STATUS. Patient arrived via ambulance from ER. Monitor applied. Initial assessment completed. Vital signs taken and recorded. DORON RICHMOND DO notified of admission to the unit. Orders received. See assessment for past medical history, medications and allergies. Patient and/or family oriented to unit. visitation policy reviewed. Clothing/patient valuable form completed. KATIE LONG
--- NOTE | 2016-12-06 04:00 | NUR ---
UNABLE TO OBTAIN CONSENT FOR WOUND PICTURE ON ADMISSION R/T TO PT UNABLE TO COMPREHEND, ADMITTED WITH DX OF CHANGE IN MS
[2016-12-06] MEDS ORDERED: CARTIA XT120 MG PO (04:26)
[2016-12-06 06:10] LABS: BASO % 0.1 % (0.0-1.0); EOS % 0.1 % (1.0-4.0); HEMATOCRIT 34.2 % (37.0-47.0); LYMPH # 1.1 10*3/uL (1.3-4.4); LYMPH % 7.3 % (27.0-41.0); MEAN CELL VOLUME 89.8 fl (81.0-99.0); MEAN CORPUSCULAR HGB 28.9 pg (27.0-31.0); MEAN CORPUSCULAR HGB CONC 32.2 g/dl (33.0-37.0); MEAN PLATELET VOLUME 9.9 fl (9.6-12.3); MONO # 0.8 10*3/uL (0.1-1.0); NEUT # 13.2 10*3/uL (2.3-7.9); PLATELET COUNT AUTOMATED 195 10*3/uL (130-400); RED BLOOD COUNT 3.81 10*6/uL (4.10-5.10); RED CELL DISTRI WIDTH 17.3 % (0-14.5); WHITE BLOOD COUNT 15.2 10*3/uL (4.8-10.8)
[2016-12-06 06:32] LABS: ALBUMIN 2.2 gm/dl (3.1-4.5); ALKALINE PHOSPHATASE 72 U/L (45-117); BUN 19 mg/dl (7-24); CHLORIDE 98 mmol/L (98-107); CHOLESTEROL 94 mg/dL (<200); CREATININE 0.82 mg/dL (0.55-1.02); HDL CHOLESTEROL 32 mg/dl (40-60); LDL CHOLESTEROL 6 mg/dL (9-159); MAGNESIUM 1.6 mg/dL (1.5-2.1); PHOSPHOROUS 3.2 mg/dL (2.5-4.9); POTASSIUM 4.3 mmol/L (3.5-5.1); SGOT/AST 9 IU/L (3-35); SGPT/ALT 9 U/L (12-78); SODIUM 134 mmol/L (136-145); TOTAL PROTEIN 5.9 gm/dL (6.4-8.2); TRIGLYCERIDES 280 mg/dl (<150); TROPONIN I 0.028 ng/ml (<0.045); VLDL CHOLESTEROL 56 mg/dL (6-40)
[2016-12-06 06:33] LABS: FREE T4 1.29 ng/dl (0.76-1.46)
[2016-12-06 06:38] LABS: THYROID STIM HORMONE (HS) 0.645 uIU/ml (0.358-4.75)
[2016-12-06 06:39] LABS: INTERNATIONAL NORM RATIO 1.2 (2.0-3.5)
[2016-12-06 07:24] LABS: VITAMIN D, 25-HYDROXY 31.1 ng/mL (30-100)
--- NOTE | 2016-12-06 08:00 | NUR ---
PATIENT LETHARGIC. RESPONDS TO TOUCH AND VERBAL STIMULI. SKIN WARM TO TOUCH. RHONCHI THROUGHOUT BOTH LUNGS. DR. GREGORY NOTIFIED REGARDING BIPAP SETTINGS. DR. GREGORY REVIEWED BLOOD GAS RESULTS AND REQUESTED PATIENT TO BE ON NASAL CANNULA AT THIS TIME.
--- NOTE | 2016-12-06 08:24 | NUR ---
PATIENT MEDICATED WITH TYLENOL SUPP FOR FEVER 102.7.
--- NOTE | 2016-12-06 08:30 | NUR ---
DR. FIGUEROA IN TO SEE PATIENT. IV FLUIDS DISCONTINUED.
[2016-12-06 08:55] LABS: HEMATOCRIT 34.3 % (37.0-47.0); MEAN CELL VOLUME 88.9 fl (81.0-99.0); MEAN CORPUSCULAR HGB 28.5 pg (27.0-31.0); MEAN CORPUSCULAR HGB CONC 32.1 g/dl (33.0-37.0); MEAN PLATELET VOLUME 10.6 fl (9.6-12.3); PLATELET COUNT AUTOMATED 213 10*3/uL (130-400); RED BLOOD COUNT 3.86 10*6/uL (4.10-5.10); RED CELL DISTRI WIDTH 17.2 % (0-14.5)
[2016-12-06 08:58] LABS: ABG HCO3 25.5 mmol/l (22-26); ARTERIAL BLOOD GAS PCO2 42.1 mmHg (35-45); ARTERIAL BLOOD GAS PH 7.412 (7.35-7.45); ARTERIAL BLOOD GAS PO2 64.4 mmHg (80-90)
[2016-12-06 09:11] LABS: PLATELET SUFFICIENCY NORMAL (NORMAL); POLYCHROMASIA SLIGHT; TOTAL CELLS COUNTED 100 #CELLS
--- NOTE | 2016-12-06 09:30 | NUR ---
CALLED TO OBTAIN PERMISSION TO PHOTOGRAPH SKIN IMPAIRMENT. WOUNDS MEASURED AND PHOTO TAKEN.
--- NOTE | 2016-12-06 09:35 | NUR ---
PATIENT TRANSFERRED TO [facility]U #6 AND REPORT GIVEN TO ELZBIETA PEDRAZA.
--- NOTE | 2016-12-06 09:35 | NUR ---
RECEIVED VIA BED. PT INCONTINENT OF LARGE SOFT STOOL. IV SITE ASYMTPMATIC
--- NOTE | 2016-12-06 09:36 | NUR ---
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 BEING TRANSFERRED TO ICU. COMES FROM [facility]. WILL CHECK FOR RETURN NEEDS.
--- NOTE | 2016-12-06 14:41 | NUR ---
VLADISLAV GALDAMEZ Nanette [id number] Please refer to the physician's history and physical for past medical history, comorbid conditions, and allergies. Diagnosis: CHANGE IN MENTAL STATUS Gustavo Score: , WOUND DESCRIPTIONS: Location of the wound: left buttocks Type of wound: stage 2 Thickness: Full Size: 0.9cm x 1.5cm x 0.1cm Tunneling: none Undermining: none Sinus Tract: none Presence of Exudate: Serous Amount: None Color: Red Odor: None Periwound Skin Appearance: Erythema Wound edges: approximated Pain (associated with wound): none at time of assessment How does patient state this happened? pt unable to state how this happened Surface the patient is resting on: Isoflex SKIN PREVENTION RECOMMENDATION: 1. Pressure redistribution support surface as appropriate 2. Elevate heels 3. Remove boots/TEDS every shift and reapply 4. Head of bed 30 degrees as tolerated 5. Assess nutrition and hydration 6. Manage moisture 7. Avoid the use of containment devices while in bed 8. Use absorptive products on surfaces limit layers of linens on bed 9. Turn and reposition every 1-2 hours in bed and every 1 hour in chair as tolerated 10. Weight shifts every 15 minutes while up in chair 11. Offloading with pillows or device to keep heels elevated off bed 12. Monitor skin at least every shift 13. Inspect under medical devices twice a day WOUND TREATMENT RECOMMENDATIONS: Cleanse buttocks with soap and water apply calazyme to BID or PRN for soiling.
--- NOTE | 2016-12-06 14:55 | NUR ---
DR VALENCIA GAVE ORDERS FOR BIPAP. TAKEN TO RADIOLOGY FOR CTA.
--- NOTE | 2016-12-06 15:00 | NUR ---
LATE ENTRY - DR VALENCIA WAS CALLED AND ORDERS FOR BIPAP RECEIVED. PATIENT WAS ALSO TAKEN FOR A CTA PER ORDERS. RAN IV SITE ASYMPTOMATIC. NAVARRO SECURE & PATENT
[2016-12-07] VITALS: BP 102/63
--- NOTE | 2016-12-07 03:52 | NUR ---
PATIENT TAKEN OFF BIPAP FOR DRINK & LIP MOISTURIZER APPLIED. DISCUSSED HER WALKING BETTER & THAT HE IS AWARE OF HER BEING HERE AND THE NEED FOR HER TO WEAR THE BIPAP ESPECIALLY AT NIGHT BUT ALSO DURING THE DAY WHEN SHE IS TAKING A NAP DUE TO HER SLEEP APNEA.
[2016-12-07 04:00] VITALS: BP 110/47
[2016-12-07 05:14] LABS: BASO % 0.1 % (0.0-1.0); EOS # 0.1 10*3/uL (0.0-0.4); EOS % 0.5 % (1.0-4.0); HEMATOCRIT 30.2 % (37.0-47.0); HEMOGLOBIN 9.9 g/dl (12.0-16.0); LYMPH # 1.3 10*3/uL (1.3-4.4); LYMPH % 11.4 % (27.0-41.0); MEAN CORPUSCULAR HGB 28.9 pg (27.0-31.0); MEAN CORPUSCULAR HGB CONC 32.8 g/dl (33.0-37.0); MEAN PLATELET VOLUME 10.6 fl (9.6-12.3); MONO # 0.7 10*3/uL (0.1-1.0); MONO % 5.8 % (3.0-9.0); NEUT # 9.6 10*3/uL (2.3-7.9); NEUT % 81.6 % (47.0-73.0); PLATELET COUNT AUTOMATED 200 10*3/uL (130-400); RED BLOOD COUNT 3.43 10*6/uL (4.10-5.10); RED CELL DISTRI WIDTH 17.1 % (0-14.5); WHITE BLOOD COUNT 11.7 10*3/uL (4.8-10.8)
--- NOTE | 2016-12-07 05:21 | NUR ---
PATIENT BACK TO SLEEP AFTER PUTTING THE CALL LIGHT ON MULTIPLE TIMES SAYING "I DON'T KNOW WHAT TO DO" - PT REASSURED THAT SHE IS OK & THAT IT IS ONLY ___ (TIME AT THAT POINT GIVEN) AND THAT SHE NEEDS TO JUST REST & SLEEP. REMINDED HER THAT WE WOULD ORDER FOOD WHEN THE KITCHEN OPENS.
[2016-12-07 05:33] LABS: ALKALINE PHOSPHATASE 79 U/L (45-117); BUN 18 mg/dl (7-24); CHLORIDE 100 mmol/L (98-107); CREATININE 0.59 mg/dL (0.55-1.02); MAGNESIUM 1.6 mg/dL (1.5-2.1); PHOSPHOROUS 2.3 mg/dL (2.5-4.9); SGOT/AST 9 IU/L (3-35); SGPT/ALT 8 U/L (12-78); SODIUM 138 mmol/L (136-145); TOTAL PROTEIN 5.8 gm/dL (6.4-8.2)
[2016-12-07 05:34] LABS: POTASSIUM 3.2 mmol/L (3.5-5.1)
[2016-12-07 08:00] VITALS: BP 99/51
--- NOTE | 2016-12-07 09:17 | NUR ---
PHYSICAL THERAPY Pnt was transferred to [facility] following initial referral for PT evaluation. New order will be needed when safely able to participate in therapy services. Miguelina Angel, PT
--- NOTE | 2016-12-07 10:30 | NUR ---
TRANSFERRED TO WITH BELONGINGS
--- NOTE | 2016-12-07 10:40 | NUR ---
PT ARRIVED TO 5E. NO DISTRESS NOTED. NO VOICED C/O. FAMILY AT BEDSIDE CALL LIGHT WITHIN REACH
[2016-12-07 12:00] VITALS: BP 106/50
--- NOTE | 2016-12-07 14:28 | NUR ---
PHYSICAL THERAPY PAtient evaluated on 5, full evaluation to follow. Continue with PT as per plan af care with fall, max(A) x 2 and napoleon lift precautions. Return to correction as prior with PT prn. PAtient is high complexity via chart review, tests and evaluation: 53080. Thank you for this referral. Karen Diaz,PT
--- NOTE | 2016-12-07 15:04 | NUR ---
Occupational Therapy evaluation completed this date on with full eval to follow. Precautions include fall risk, duggan, fear of standing, c/o pain "everywhere", Janiya lift transfers, high complexity level. Recommend OT per POC and return to senior care at [facility]. Thank you for this referral. Mirian Valdez OTR/l
[2016-12-07 16:00] VITALS: BP 90/44
--- NOTE | 2016-12-07 17:30 | NUR ---
TAKEN OFF BIPAP PER PT REQUEST. PLACED ON 5L/M. NOSE SLIGHTLY PINK.
[2016-12-07 20:00] VITALS: BP 100/47
--- NOTE | 2016-12-07 21:07 | NUR ---
PATIENT REQUESTED PERCOCET FOR PAIN IN HER BACK 10/26. PERCOCET GIVEN PER ORDER.
--- NOTE | 2016-12-07 22:00 | NUR ---
PAIN IN BACK HAS SUBSIDED PER PATIENT, NOW 06/26.
--- NOTE | 2016-12-07 23:40 | NUR ---
24 HR chart check completed.
--- NOTE | 2016-12-07 23:47 | NUR ---
24 HR chart check completed.
[2016-12-08] VITALS: BP 101/55; BP 152/67
--- NOTE | 2016-12-08 00:44 | NUR ---
PATIENT REQUESTED MORPHINE FOR BACK PAIN, GIVEN PER ORDER, PAIN 11/26
[2016-12-08 04:00] VITALS: BP 118/62
--- NOTE | 2016-12-08 05:32 | NUR ---
PATIENT AT 0530 REQUESTED PERCOCET FOR PAIN IN THE BACK, 10/26, GIVEN PER ORDER. ZANAFLEX GIVEN FOR MUSCLE SPASMS,PER REQUEST.
[2016-12-08 06:27] LABS: BASO % 0.3 % (0.0-1.0); EOS # 0.1 10*3/uL (0.0-0.4); EOS % 1.8 % (1.0-4.0); HEMATOCRIT 29.7 % (37.0-47.0); HEMOGLOBIN 9.4 g/dl (12.0-16.0); LYMPH # 1.5 10*3/uL (1.3-4.4); LYMPH % 24.3 % (27.0-41.0); MEAN CORPUSCULAR HGB 28.8 pg (27.0-31.0); MEAN CORPUSCULAR HGB CONC 31.6 g/dl (33.0-37.0); MEAN PLATELET VOLUME 10.7 fl (9.6-12.3); MONO # 0.4 10*3/uL (0.1-1.0); MONO % 6.6 % (3.0-9.0); NEUT % 66.5 % (47.0-73.0); PLATELET COUNT AUTOMATED 168 10*3/uL (130-400); RED BLOOD COUNT 3.26 10*6/uL (4.10-5.10); RED CELL DISTRI WIDTH 16.7 % (0-14.5)
--- NOTE | 2016-12-08 06:30 | NUR ---
PATIENT RESTING IN BED AT 0620, STATES THAT MEDICATION WAS EFFECTIVE, PAIN 05/26.
[2016-12-08 06:44] LABS: BUN 16 mg/dl (7-24); CHLORIDE 106 mmol/L (98-107); CREATININE 0.69 mg/dL (0.55-1.02); PHOSPHOROUS 2.8 mg/dL (2.5-4.9); POTASSIUM 3.7 mmol/L (3.5-5.1); SODIUM 141 mmol/L (136-145)
[2016-12-08 06:46] LABS: MEAN CELL VOLUME 91.1 fl (81.0-99.0)
[2016-12-08 08:00] VITALS: BP 90/52
--- NOTE | 2016-12-08 10:39 | NUR ---
PHYSICAL THERAPY Brianna seen this AM and was on her Bi-Pap at this time. Stopped back later this AM and Brianna said not now later. VJ BAZZI ENGINEERING ASSOCIATE.
[2016-12-08 12:00] VITALS: BP 102/50
--- NOTE | 2016-12-08 12:41 | NUR ---
PHYSICAL THERAPY Back this PM to treat Brianna for her therapy session. Transfer supine/sit very slow making Brianna work for it and MOD A X 1, up into sitting balance. Once up sitting balance supervision x 1, X 15 min. With rocking, right and left for trunk strengthening. After rest act LAQ's, ankle pumps to tolerance. Pt back supine MAX A X 1, call light phone and in at this time, treatment time 19 min. VJ BAZZI ASSISTANT CHIEF ENGINEER.
[2016-12-08 16:00] VITALS: BP 102/50
[2016-12-08 20:00] VITALS: BP 113/53
--- NOTE | 2016-12-08 20:28 | NUR ---
REQUESTED AND RECEIVED PRN PERCOCET ORDERD FOR C/O BACK AND LEG PAIN AT AN 8.
--- NOTE | 2016-12-08 21:30 | NUR ---
PER PATIENT EARLIER PERCOCET WAS EFFECTIVE.
--- NOTE | 2016-12-08 21:43 | NUR ---
PATIENT MEDICATED WITH PRN ZANAFLEX ORDERED FOR C/O MUSCLE SPASMS
--- NOTE | 2016-12-08 23:24 | NUR ---
PT PLACED ON BIPAP
[2016-12-09] VITALS: BP 97/49
--- NOTE | 2016-12-09 03:24 | NUR ---
PATIENT RESTING QUIETLY. CURRENTLY ON BIPAP. NO SXS OF DISTRESS. FLUIDS MAINTAINED PER ORDER. WILL MONITOR.
[2016-12-09 06:16] LABS: BASO % 0.4 % (0.0-1.0); EOS # 0.1 10*3/uL (0.0-0.4); EOS % 1.9 % (1.0-4.0); HEMATOCRIT 29.3 % (37.0-47.0); HEMOGLOBIN 9.1 g/dl (12.0-16.0); LYMPH # 1.4 10*3/uL (1.3-4.4); LYMPH % 29.8 % (27.0-41.0); MEAN CELL VOLUME 92.1 fl (81.0-99.0); MEAN CORPUSCULAR HGB 28.6 pg (27.0-31.0); MEAN CORPUSCULAR HGB CONC 31.1 g/dl (33.0-37.0); MEAN PLATELET VOLUME 10.8 fl (9.6-12.3); MONO # 0.4 10*3/uL (0.1-1.0); MONO % 7.9 % (3.0-9.0); NEUT # 2.9 10*3/uL (2.3-7.9); NEUT % 59.2 % (47.0-73.0); PLATELET COUNT AUTOMATED 170 10*3/uL (130-400); RED BLOOD COUNT 3.18 10*6/uL (4.10-5.10); RED CELL DISTRI WIDTH 16.2 % (0-14.5); WHITE BLOOD COUNT 4.8 10*3/uL (4.8-10.8)
--- NOTE | 2016-12-09 06:27 | NUR ---
PATIENT MEDICATED WITH PRN PERCOCET AND ZANAFLEX ORDERED FOR C/O BACK PAIN AND MUSCLE SPASMS AT AN 8.
[2016-12-09 06:42] LABS: BUN 10 mg/dl (7-24); CHLORIDE 106 mmol/L (98-107); CREATININE 0.56 mg/dL (0.55-1.02); POTASSIUM 3.8 mmol/L (3.5-5.1); SODIUM 142 mmol/L (136-145)
--- NOTE | 2016-12-09 06:45 | NUR ---
PATIENT SLEPT THROUGHOUT SHIFT WITH NO VOICED COMPLAINTS. CURRENTLY RESTING IN BED, ON BIPAP. FLUIDS MAINTAINED PER ORDER.
--- NOTE | 2016-12-09 07:15 | NUR ---
PATIENT TAKEN OFF OF BI-PAP, PLACED ON 3 L/M.
--- NOTE | 2016-12-09 07:58 | NUR ---
Shift chart check completed.
[2016-12-09 08:00] VITALS: BP 106/48
--- NOTE | 2016-12-09 08:19 | NUR ---
PT COMPLAINS OF BACK PAIN 10/26. MORPHINE GIVEN. SEE MAY. WILL MONITOR FOR EFFECTIVENESS
--- NOTE | 2016-12-09 09:37 | NUR ---
MORPHINE EFFECTIVE FOR PAIN . BACK PAIN NOW 07/26. WILL CONTINUE TO MONITOR
--- NOTE | 2016-12-09 11:35 | NUR ---
PT STATES BACK PAIN 7/10N AGAIN. PERCOCET GIVEN. SEE MAR. WILL MONITOR FOR EFFECTIVENESS
[2016-12-09 12:00] VITALS: BP 118/56
--- NOTE | 2016-12-09 12:45 | NUR ---
PT STATES PERCOCET EFFECTIVE
--- NOTE | 2016-12-09 14:30 | NUR ---
CALLED DR. ZABALA ANSWERING SERVICE TO MAKE SURE SHE HAD BEEN NOTIFIED OF CONSULT THAT WAS PLACED YESTERDAY. THEY ARE PAGING DR. ZABALA - AWAITING CALL BACK
--- NOTE | 2016-12-09 15:29 | NUR ---
SPOKE TO DR. ZABALA, AWARE OF CONSULT. DISCUSSED CURRENT ANTIBIOTIC TREATMENT. SHE AGREES WITH MERREM 1GM Q8. SHE WILL SEE THE PATIENT TOMORROW
[2016-12-09 16:00] VITALS: BP 106/52
--- NOTE | 2016-12-09 18:20 | NUR ---
PT STATES PAIN MEDICAION EFFECTIVE
[2016-12-09 20:00] VITALS: BP 110/62
--- NOTE | 2016-12-09 20:58 | NUR ---
PATIENT MEDICATED WITH PRN PERCOCET ORDERD FOR C/O CHRONIC BACK PAIN RATED AN 8
--- NOTE | 2016-12-09 22:00 | NUR ---
PATIENT STATES EARLIER PERCOCET WAS EFFECTIVE IN DECREASING HER BACK PAIN. PATIENT IS CURRENTLY RESTING IN BED WATCHING TV. NO VOICED COMPLAINTS AT THIS TIME. FLUIDS MAINTAINED PER ORDER. CALL LIGHT IS IN REACH.
[2016-12-10] VITALS: BP 117/50
--- NOTE | 2016-12-10 00:17 | NUR ---
PATIENT MEDICATED WITH PRN MORPHINE ORDERED FOR C/O BACK PAIN RATED A 7.
--- NOTE | 2016-12-10 01:30 | NUR ---
PATIENT STATES EARLIER MORPHINE WAS EFFECTIVE
--- NOTE | 2016-12-10 02:53 | NUR ---
PATIENT REQUESTED AND RECEIVED PRN DULCOLAX SUPPOSITORY ORDED FOR C/O NO BM FOR 3-4 DAYS
--- NOTE | 2016-12-10 03:08 | NUR ---
PATIENT MEDICATED WITH PRN PERCOCET FOR C/O CHRONIC BACK PAIN RATED AN 8
--- NOTE | 2016-12-10 04:15 | NUR ---
PATIENT STATES THAT EARLIER PERCOCET WAS EFFECTIVE
[2016-12-10 08:00] VITALS: BP 115/57
--- NOTE | 2016-12-10 08:30 | NUR ---
PT COMPLAINING OF 8/10 BACK PAIN, STATES ACHING PAIN. MEDICATED WITH PERCOCET. WILL MONITOR FOR EFFECTIVENESS.
--- NOTE | 2016-12-10 09:49 | NUR ---
PT STATES SOME RELIEF OF BACK PAIN, NOW RATES PAIN 4/10. RESTING IN BED.
[2016-12-10 12:00] VITALS: BP 115/59
--- NOTE | 2016-12-10 13:36 | NUR ---
MEDICATED WITH PERCOCET PER PRN ORDER FOR C/O BACK PAIN, PT RATES PAIN 09/25. WILL MONITOR FOR EFFECTIVENESS.
[2016-12-10 16:00] VITALS: BP 116/55
--- NOTE | 2016-12-10 17:50 | NUR ---
PT COMPLAINING OF BACK PAIN AND WANTING HER CREAM FOR HER BEDSORE. EDUCATED PT ON REPOSITIONING AND TRYING TO GET OUT OF BED TO HELP WITH WOUND HEALING, PT REFUSES TO TURN AND REPOSITION. MEDICATED WITH PERCOCET FOR PRN ORDER FOR COMPLAINTS OF BACK PAIN, RATES 11/26. WILL MONITOR FOR EFFECTIVENESS. ALSO APPLIED CALAZIME CREAM TO PT'S STG II ON HER RIGHT BUTTOCK.
[2016-12-10 20:00] VITALS: BP 119/57
[2016-12-11] VITALS: BP 118/69
--- NOTE | 2016-12-11 03:22 | NUR ---
PATIENT ASLEEP IN BED AT THIS TIME. NO S/S OF DISTRESS NOTED. ON BIPAP PER ORDER. WILL MONITOR. CALL LIGHT IN REACH.
--- NOTE | 2016-12-11 06:14 | NUR ---
PATIENT MEDICATED WITH PO PERCOCET PER PRN ORDER FOR C/O CHRONIC BACK PAIN 10/26. BIPAP REMOVED AND PT PLACED ON O2 VIA NC AT 3L/M. WILL MONITOR EFFECTIVENESS. CALL LIGHT LEFT IN REACH.
[2016-12-11 08:00] VITALS: BP 128/645
--- NOTE | 2016-12-11 08:54 | NUR ---
PHYSICAL THERAPY Brianna was seen this AM 1:1 for her therapy treatment. Pt was out at this time sleeping sound. Brianna was medicater with perocet this AM, C/O back pain 10/26, will check back later today. VJ BAZZI LOSS CONTROL ENGINEER.
--- NOTE | 2016-12-11 11:43 | NUR ---
PATIENT SEEN FOR 15 MINUTES 1:1 THIS DATE 15 MINUTES. PATIENT IDENTIFIED BY NAME AND DATE OF . PATIENT IN BED UPON ARRIVAL THIS DATE. PATIENT LETHARGIC WITH ACTIVITY COMPLETED TO TOLERANCE. PATIENT COMPLETES BUE AROM REACHING OVER HEAD AND BENDING ELBOWS 2 SETS X 5 REPS WITH DIFFICULTY AND FATIGUE . PATIENT COMPLETED BED MOBILTY ROLLING TO LEFT SIDE MAXA USE RAIL WHILE NURSE COMPLETED SKIN CARE TO BOTTOM. PATIENT COMPLETED GROOMING TASK IN SUPINE WASH FACE MINA. ELEUTERIO BRENNANER KRIS
[2016-12-11 12:00] VITALS: BP 124/67
--- NOTE | 2016-12-11 12:55 | NUR ---
PHYSICAL THERAPY Back this PM to see Brianna, Pt supine in bed. Transfer supine/sit MOD A X 1, sitting balance X 16 min, working in sitting balance rocking, leaning right and left. Act LE Ex of LAQ's, ankle pumps and marching to tolerance. After this said that she was tired and wanted to lay back down. Pt back supine and up in bed MAX A X 2. VJ BAZZI CAMPUS MONITOR.
--- NOTE | 2016-12-11 13:06 | NUR ---
PATIENT CLEARED BY DR. VALENCIA FOR DISCHARGE. DR. VALENCIA WAS CALLED AND NOTIFIED OF PATIENTS RECENT CXR. NO CONCERNS FROM THE .
[2016-12-11] MEDS ORDERED: CEFEPIME2 GM/100 M IV (13:35)
[2016-12-11] MEDS ORDERED: PERCOCET 10-321 EACH PO (13:35)
--- NOTE | 2016-12-11 14:00 | NUR ---
PATIENT IS BEING DISCHARGED TO [facility]. STILL WAITING ON TIME FOR DC. THE PATIENT DENIES DC PICTURES.
--- NOTE | 2016-12-11 14:11 | NUR ---
Patient being discharged back to [facility] at 3PM, transportation scheduled with [facility]. NH, nursing and family notified.
--- NOTE | 2016-12-11 15:20 | NUR ---
Discharge instructions reviewed with patient/family. Patient receptive and verbalizes understanding. Follow-up care arranged. Written instructions given to patient/family. RUFUS STONE
--- NOTE | 2016-12-11 15:38 | NUR ---
OCCUPATIONAL THERAPY CO-SIGN I approve of the Occupational Therapy notes written above. LARS FARRAR OTR/Natali
--- NOTE | 2016-12-12 08:10 | NUR ---
PHYSICAL THERAPY CO-SIGN I approve of the Phyical Therapy notes written above. CRUZ KELLEY PT
== END 2016-12-11 15:20 | disposition other institution (70) | DRG 871 ==
LOC: ED 00:37 → ICCU 03:15 → EDHOLD 03:15 → 4E 03:19 → 5E 03:24 → ICCU 09:41 → 5E 12-07 09:57
PROVIDERS: Emergency Medicine Emergency Medical Services; Family Medicine; Hospitalist; ADMIT Internal Medicine
PROC: 5A09457 Assistance with Respiratory Ventilation, 24-96 Consecutive Hours, Continuous Positive Airway Pressure (ICD-10-PCS; principal; 2016-12-06)
DX: A41.9 Sepsis, unspecified organism (principal); G93.41 Metabolic encephalopathy; J96.21 Acute and chronic respiratory failure with hypoxia; E43 Unspecified severe protein-calorie malnutrition; J69.0 Pneumonitis due to inhalation of food and vomit; J90 Pleural effusion, not elsewhere classified; J16.8 Pneumonia due to other specified infectious organisms; N39.0 Urinary tract infection, site not specified; E66.2 Morbid (severe) obesity with alveolar hypoventilation; I50.30 Unspecified diastolic (congestive) heart failure; I48.0 Paroxysmal atrial fibrillation; J44.9 Chronic obstructive pulmonary disease, unspecified; R65.20 Severe sepsis without septic shock; I25.10 Atherosclerotic heart disease of native coronary artery without angina pectoris; E11.65 Type 2 diabetes mellitus with hyperglycemia; K21.9 Gastro-esophageal reflux disease without esophagitis; D64.9 Anemia, unspecified; E87.6 Hypokalemia; E83.39 Other disorders of phosphorus metabolism; R74.8 Abnormal levels of other serum enzymes; Z53.29 Procedure and treatment not carried out because of patient's decision for other reasons; B96.5 Pseudomonas (aeruginosa) (mallei) (pseudomallei) as the cause of diseases classified elsewhere; F17.210 Nicotine dependence, cigarettes, uncomplicated; E11.21 Type 2 diabetes mellitus with diabetic nephropathy; E78.00 Pure hypercholesterolemia, unspecified; Z88.0 Allergy status to penicillin; Z79.899 Other long term (current) drug therapy; Z99.81 Dependence on supplemental oxygen; Z87.440 Personal history of urinary (tract) infections; Z98.51 Tubal ligation status; Z90.49 Acquired absence of other specified parts of digestive tract; Z90.89 Acquired absence of other organs; Z98.61 Coronary angioplasty status; Z82.49 Family history of ischemic heart disease and other diseases of the circulatory system; Z83.3 Family history of diabetes mellitus; Z82.3 Family history of stroke; Z84.89 Family history of other specified conditions; Z79.4 Long term (current) use of insulin; Z74.01 Bed confinement status; Z87.01 Personal history of pneumonia (recurrent); Z98.41 Cataract extraction status, right eye; Z79.01 Long term (current) use of anticoagulants; Z68.37 Body mass index [BMI] 37.0-37.9, adult

== ENCOUNTER → 2017-01-11 | Outpatient (CLI) | payer OTHER ==
[~2017-01-11] MED LIST changes: +CARTIA XT120 MG PO; +CEFEPIME2 GM/100 M IV
== END | disposition home or self-care (01) ==
LOC: CARD 13:25
DX: I08.2 Rheumatic disorders of both aortic and tricuspid valves (principal); E78.5 Hyperlipidemia, unspecified

== ENCOUNTER 2017-09-26 01:03 | Inpatient (IN) | payer OTHER, MEDICARE ==
[~2017-09-26] VITALS: Ht 162.5 cm; Wt 107.5 kg
--- NOTE | ~2017-09-26 | EKG ---
[place], [place] ELECTROCARDIOGRAM REPORT NAME: VLADISLAV GALDAMEZ UNIT #: [id number] ROOM: 508 DOCTOR: EPIPHANY DRAFT REPORT BIRTHDATE: [birth year] [facility] Test Date: 2017-09-26 Test Time: 01:49:23 Pat Name: VLADISLAV GALDAMEZ Department: ED Room: 5 Gender: F Batch Room Technician: Deepa Hollis : 1950 Requested By: KATY PARRA Order Number: [id number] Reading MD: Windy Brar MD Measurements Intervals [place] Rate: 82 P: 59 NV: 156 QRS: 58 QRSD: 93 T: 10 QT: 419 QTc: 490 Interpretive Statements Sinus rhythm Probable left atrial enlargement Borderline prolonged QT interval Abnormal EKG. Electronically Signed On 09-26-2017 14:21:11 PDT by Windy Brar MD CM:EKGRPT:ELECTROCARDIOGRAM REPORT [id number] 1421 KATY PARRA MD EPIPHANY DRAFT REPORT KATY PARRA MD
--- NOTE | ~2017-09-26 | EKG ---
[place], [place] ELECTROCARDIOGRAM REPORT NAME: VLADISLAV GALDAMEZ UNIT #: [id number] ROOM: 508 DOCTOR: KELLI DRAFT REPORT BIRTHDATE: [birth year] [facility] Test Date: 2017-09-26 Test Time: 11:02:22 Pat Name: VLADISLAV GALDAMEZ Department: Room: 8 1 Gender: F Hide Inspector And Sorter: NELSON : 1950 Requested By: WINDY LOPEZ Order Number: [id number] Reading MD: Windy Lopez MD Measurements Intervals [place] Rate: 87 P: 56 MS: 157 QRS: 55 QRSD: 94 T: -5 QT: 376 QTc: 453 Interpretive Statements Sinus rhythm Left atrial enlargement Abnormal EKG. Electronically Signed On 09-26-2017 14:24:45 PDT by Windy Lopez MD CM:EKGRPT:ELECTROCARDIOGRAM REPORT [id number] 1424 WINDY LOPEZ MD EPIPHANY DRAFT REPORT WINDY LOPEZ MD
--- NOTE | ~2017-09-26 | PR ---
[place], [place] PROGRESS NOTE NAME: VLADISLAV GALDAMEZ [facility] #: [id number] UNIT #: [id number] ROOM: 508 DOCTOR: KATELYN RUDD MD BIRTHDATE: [birth year] DOS: 09/29/2017 CARDIOLOGY PROGRESS NOTE SUBJECTIVE: The patient was seen at her bedside today September 29, 2017 for followup of her aortic stenosis, congestive heart failure, and paroxysmal atrial fibrillation. She was doing reasonably well this morning, but went back into atrial fibrillation with rapid ventricular response. Blood pressure was impaired. She was given a loading dose of digoxin intravenously and converted spontaneously to sinus rhythm. She is now feeling well again. She denies any chest pain or palpitations at the present time. PHYSICAL EXAMINATION: VITAL SIGNS: Today, her pulse is 97 and regular, blood pressure is 110/70. She is afebrile. She weighs 106.5 kg and has a body mass index of 40.3. HEENT: Normocephalic and atraumatic. Extraocular muscles are intact. Sclerae are clear. Pupils are equal, round and react to light. The oral mucosa is moist. Tongue is midline. NECK: Supple. She has no jugular distention. Carotids have a slow upstroke. There are transmitted murmurs into the carotids bilaterally. LUNGS: Respirations are unlabored. She has decreased breath sounds at the bases. There are no wheezes or rales. She has no presacral edema. HEART: Has a regular rhythm with a grade 4/6 late peaking systolic ejection murmur. The second heart sound is obscured. First heart sound is normal. There are no diastolic murmurs. Her PMI could not be felt. ABDOMEN: Soft and normally active without masses, organomegaly or bruits. EXTREMITIES: Showed trace edema bilaterally. LABORATORY DATA: Echocardiography done during this hospitalization showed normal left ventricular size and wall motion with moderate concentric left ventricular hypertrophy, systolic function was normal, ejection fraction was estimated at 65%. Diastole could not be assessed. The aortic valve was poorly visualized. There was trace aortic insufficiency with qoqqyghf-fl-qckdgs aortic stenosis. The peak aortic gradient was 66 mmHg with a mean of 43. Calculated valve area was 1.1 cm2. IMPRESSION: 1. Symptomatic aortic stenosis. 2. Acute on chronic diastolic congestive heart failure due to valvular heart disease. 3. Borderline elevation of troponin due to demand ischemia. 4. Paroxysmal atrial fibrillation. Episodes of atrial fibrillation are resulting in acute decompensation of her diastolic heart failure. 5. Anticoagulation with a direct oral anticoagulant for stroke prophylaxis. 6. History of heavy tobacco abuse, ongoing up till the time of this admission. 7. Chronic obstructive pulmonary disease with bronchospasm. 8. Paraparesis status post lumbar spine surgery. 9. Morbid obesity. 10. Decubitus ulcerations. [place], [place] PROGRESS NOTE NAME: VLADISLAV GALDAMEZ UNIT #: [id number] ROOM: 508 DOCTOR: KATELYN RUDD MD BIRTHDATE: [birth year] PLAN: The patient did have recurrent atrial fibrillation this morning with rapid ventricular response. Digoxin was started and she will continue metoprolol and diltiazem for rate control. In the long run, she will require aortic valve replacement for adequate management of her cardiac issues, but she is a very poor candidate for any form of aortic valve replacement. Her obesity and poor mobility along with severe lung disease make her a poor candidate for surgical valve replacement. A TAVR might be appropriate; however, the presence of open wounds and decubitus ulcers likely preclude that option as well because of risk of valve infection. For now, we will continue to manage her medically. She is to go to a rehab facility for management of her skin lesions. She will be referred for evaluation for valve replacement, but again as noted as long as she continues to have open wounds and continues to smoke, her probability of a good outcome from any form of valve replacement will be very poor. I thank the hospitalist physicians for asking our advice regarding her care. KATELYN RUDD MD CM:PNTRANS [id number] KATELYN RUDD MD 09/30/17 1219 interface
--- NOTE | ~2017-09-26 | EKG ---
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 Borderline repolarization abnormality Compared to ECG 09/26/2017 11:02:22 Sinus rhythm no longer present Atrial abnormality no longer present Abnormal EKG. Electronically Signed On 09-27-2017 16:26:31 PDT by Windy Brar MD CM:EKGRPT:ELECTROCARDIOGRAM REPORT [id number] 1626 IAIN PEREIRA DRAFT REPORT IAIN GARDINER
[2017-09-26 01:10] VITALS: BP 111/48
[2017-09-26 01:50] LABS: BASO % 0.3 % (0.0-1.0); EOS % 0.2 % (1.0-4.0); HEMATOCRIT 45.4 % (37.0-47.0); HEMOGLOBIN 14.5 g/dl (12.0-16.0); LYMPH # 1.2 10*3/uL (1.3-4.4); MEAN CELL VOLUME 92.7 fl (81.0-99.0); MEAN CORPUSCULAR HGB 29.6 pg (27.0-31.0); MEAN CORPUSCULAR HGB CONC 31.9 g/dl (33.0-37.0); MONO # 0.4 10*3/uL (0.1-1.0); NEUT # 4.3 10*3/uL (2.3-7.9); NEUT % 72.2 % (47.0-73.0); PLATELET COUNT AUTOMATED 230 10*3/uL (130-400); RED CELL DISTRI WIDTH 14.4 % (0-14.5)
[2017-09-26 01:59] LABS: INTERNATIONAL NORM RATIO 1.2 (2.0-3.5)
[2017-09-26 02:07] LABS: ALKALINE PHOSPHATASE 51 U/L (45-117); BUN 10 mg/dl (7-24); CHLORIDE 109 mmol/L (98-107); CREATININE 0.92 mg/dL (0.55-1.02); POTASSIUM 3.6 mmol/L (3.5-5.1); SGOT/AST 10 IU/L (3-35); SGPT/ALT 12 U/L (12-78); SODIUM 144 mmol/L (136-145); TOTAL PROTEIN 6.7 gm/dL (6.4-8.2)
[2017-09-26 02:10] LABS: TROPONIN I 0.148 ng/ml (<0.045)
[2017-09-26 02:15] LABS: THYROID STIM HORMONE (HS) 0.772 uIU/ml (0.358-4.75)
[2017-09-26 04:55] VITALS: BP 108/64
[2017-09-26 08:00] VITALS: BP 132/78
[2017-09-26 12:00] VITALS: BP 115/53
[2017-09-26 16:00] VITALS: BP 118/52
[2017-09-26 20:00] VITALS: BP 114/70; BP 137/78
[2017-09-27] VITALS: BP 128/65
[2017-09-27 06:43] LABS: BASO % 0.4 % (0.0-1.0); EOS # 0.2 10*3/uL (0.0-0.4); EOS % 2.1 % (1.0-4.0); HEMATOCRIT 46.4 % (37.0-47.0); HEMOGLOBIN 14.6 g/dl (12.0-16.0); LYMPH # 2.3 10*3/uL (1.3-4.4); LYMPH % 31.3 % (27.0-41.0); MEAN CELL VOLUME 94.1 fl (81.0-99.0); MEAN CORPUSCULAR HGB 29.6 pg (27.0-31.0); MEAN CORPUSCULAR HGB CONC 31.5 g/dl (33.0-37.0); MEAN PLATELET VOLUME 10.7 fl (9.6-12.3); MONO # 0.6 10*3/uL (0.1-1.0); MONO % 8.3 % (3.0-9.0); NEUT # 4.2 10*3/uL (2.3-7.9); NEUT % 57.6 % (47.0-73.0); PLATELET COUNT AUTOMATED 232 10*3/uL (130-400); RED BLOOD COUNT 4.93 10*6/uL (4.10-5.10); WHITE BLOOD COUNT 7.3 10*3/uL (4.8-10.8)
[2017-09-27 07:02] LABS: BUN 10 mg/dl (7-24); CHLORIDE 102 mmol/L (98-107); CHOLESTEROL 100 mg/dL (<200); CREATININE 1.02 mg/dL (0.55-1.02); HDL CHOLESTEROL 36 mg/dl (40-60); LDL CHOLESTEROL 23 mg/dL (9-159); POTASSIUM 3.4 mmol/L (3.5-5.1); SODIUM 142 mmol/L (136-145); TRIGLYCERIDES 204 mg/dl (<150); VLDL CHOLESTEROL 41 mg/dL (6-40)
[2017-09-27 08:00] VITALS: BP 103/55
[2017-09-27 12:00] VITALS: BP 102/63
[2017-09-27 16:00] VITALS: BP 111/58
[2017-09-27 20:00] VITALS: BP 122/56
[2017-09-28 00:56] VITALS: BP 107/58
[2017-09-28 06:11] LABS: BASO % 0.5 % (0.0-1.0); EOS # 0.2 10*3/uL (0.0-0.4); EOS % 2.8 % (1.0-4.0); HEMATOCRIT 47.1 % (37.0-47.0); HEMOGLOBIN 14.9 g/dl (12.0-16.0); LYMPH # 2.6 10*3/uL (1.3-4.4); LYMPH % 32.6 % (27.0-41.0); MEAN CELL VOLUME 94.6 fl (81.0-99.0); MEAN CORPUSCULAR HGB 29.9 pg (27.0-31.0); MEAN CORPUSCULAR HGB CONC 31.6 g/dl (33.0-37.0); MEAN PLATELET VOLUME 10.7 fl (9.6-12.3); MONO # 0.7 10*3/uL (0.1-1.0); MONO % 8.7 % (3.0-9.0); NEUT # 4.4 10*3/uL (2.3-7.9); NEUT % 55.3 % (47.0-73.0); PLATELET COUNT AUTOMATED 242 10*3/uL (130-400); RED BLOOD COUNT 4.98 10*6/uL (4.10-5.10); WHITE BLOOD COUNT 7.9 10*3/uL (4.8-10.8)
[2017-09-28 06:30] LABS: CREATININE 1.16 mg/dL (0.55-1.02); POTASSIUM 4.2 mmol/L (3.5-5.1)
[2017-09-28 08:00] VITALS: BP 90/52
[2017-09-28 08:10] VITALS: BP 96/48
[2017-09-28 12:00] VITALS: BP 98/58
[2017-09-28 16:00] VITALS: BP 100/41
[2017-09-28 20:00] VITALS: BP 90/43
[2017-09-29] VITALS: BP 103/49
[2017-09-29 06:19] LABS: BASO % 0.5 % (0.0-1.0); EOS # 0.2 10*3/uL (0.0-0.4); EOS % 3.6 % (1.0-4.0); HEMATOCRIT 45.9 % (37.0-47.0); HEMOGLOBIN 14.4 g/dl (12.0-16.0); LYMPH # 2.2 10*3/uL (1.3-4.4); LYMPH % 39.7 % (27.0-41.0); MEAN CELL VOLUME 94.3 fl (81.0-99.0); MEAN CORPUSCULAR HGB 29.6 pg (27.0-31.0); MEAN CORPUSCULAR HGB CONC 31.4 g/dl (33.0-37.0); MEAN PLATELET VOLUME 10.8 fl (9.6-12.3); MONO # 0.4 10*3/uL (0.1-1.0); MONO % 7.8 % (3.0-9.0); NEUT # 2.7 10*3/uL (2.3-7.9); NEUT % 48.2 % (47.0-73.0); PLATELET COUNT AUTOMATED 243 10*3/uL (130-400); RED BLOOD COUNT 4.87 10*6/uL (4.10-5.10); RED CELL DISTRI WIDTH 13.8 % (0-14.5); WHITE BLOOD COUNT 5.5 10*3/uL (4.8-10.8)
[2017-09-29 06:43] LABS: BUN 20 mg/dl (7-24); CHLORIDE 100 mmol/L (98-107); CREATININE 1.07 mg/dL (0.55-1.02); SODIUM 137 mmol/L (136-145)
[2017-09-29 08:00] VITALS: BP 120/80
[2017-09-29] MEDS ORDERED: PERCOCET 10-321 EACH PO (08:22)
[2017-09-29] MEDS ORDERED: LOPRESSOR25 MG PO ×2 (08:22→08:44)
[2017-09-29] MEDS ORDERED: KLOR-CON M2020 ME1 PO (08:22)
[2017-09-29] MEDS ORDERED: NICODERM T (08:22)
[2017-09-29] MEDS ORDERED: ASPIRIN ADULT L81 M2 PO (08:22)
[2017-09-29 09:00] VITALS: BP 110/70
[2017-09-29 12:35] VITALS: BP 110/70
[2017-09-29 16:00] VITALS: BP 113/60
[2017-09-29 20:00] VITALS: BP 117/57
[2017-09-30] VITALS: BP 108/65
[2017-09-30 06:02] LABS: BASO % 0.6 % (0.0-1.0); EOS # 0.2 10*3/uL (0.0-0.4); EOS % 3.7 % (1.0-4.0); HEMATOCRIT 47.5 % (37.0-47.0); HEMOGLOBIN 14.9 g/dl (12.0-16.0); LYMPH # 1.6 10*3/uL (1.3-4.4); MEAN CELL VOLUME 93.7 fl (81.0-99.0); MEAN CORPUSCULAR HGB 29.4 pg (27.0-31.0); MEAN CORPUSCULAR HGB CONC 31.4 g/dl (33.0-37.0); MONO # 0.4 10*3/uL (0.1-1.0); MONO % 7.9 % (3.0-9.0); NEUT # 3.1 10*3/uL (2.3-7.9); NEUT % 57.4 % (47.0-73.0); PLATELET COUNT AUTOMATED 254 10*3/uL (130-400); RED BLOOD COUNT 5.07 10*6/uL (4.10-5.10); RED CELL DISTRI WIDTH 13.9 % (0-14.5); WHITE BLOOD COUNT 5.4 10*3/uL (4.8-10.8)
[2017-09-30 06:29] LABS: BUN 22 mg/dl (7-24); CHLORIDE 101 mmol/L (98-107); CREATININE 0.98 mg/dL (0.55-1.02); POTASSIUM 4.7 mmol/L (3.5-5.1); SODIUM 139 mmol/L (136-145)
[2017-09-30 08:00] VITALS: BP 102/42
[2017-09-30 08:03] VITALS: BP 124/72
[2017-09-30 12:00] VITALS: BP 99/44
[2017-09-30 16:00] VITALS: BP 104/52
== END 2017-09-30 17:20 | disposition other institution (70) | DRG 264 ==
LOC: ED 01:03 → 5E 03:48 → EDHOLD 03:48 → 5E 04:01
PROVIDERS: Emergency Medicine Emergency Medical Services; Family Medicine; Internal Medicine
PROC: 0JB90ZZ Excision of Buttock Subcutaneous Tissue and Fascia, Open Approach (ICD-10-PCS; principal; 2017-09-26)
PROC: 0JBM0ZZ Excision of Left Upper Leg Subcutaneous Tissue and Fascia, Open Approach (ICD-10-PCS; principal; 2017-09-26)
DX: I50.33 Acute on chronic diastolic (congestive) heart failure (principal); E43 Unspecified severe protein-calorie malnutrition; L89.153 Pressure ulcer of sacral region, stage 3; L89.313 Pressure ulcer of right buttock, stage 3; L89.223 Pressure ulcer of left hip, stage 3; E11.622 Type 2 diabetes mellitus with other skin ulcer; G82.20 Paraplegia, unspecified; J44.1 Chronic obstructive pulmonary disease with (acute) exacerbation; Z68.41 Body mass index [BMI] 40.0-44.9, adult; I48.0 Paroxysmal atrial fibrillation; E11.65 Type 2 diabetes mellitus with hyperglycemia; F17.200 Nicotine dependence, unspecified, uncomplicated; G89.29 Other chronic pain; M54.9 Dorsalgia, unspecified; E66.01 Morbid (severe) obesity due to excess calories; I35.0 Nonrheumatic aortic (valve) stenosis; I87.2 Venous insufficiency (chronic) (peripheral); I25.10 Atherosclerotic heart disease of native coronary artery without angina pectoris; K21.9 Gastro-esophageal reflux disease without esophagitis; Z96.651 Presence of right artificial knee joint; Z95.5 Presence of coronary angioplasty implant and graft; K42.9 Umbilical hernia without obstruction or gangrene; L30.4 Erythema intertrigo; Z98.61 Coronary angioplasty status; Z99.81 Dependence on supplemental oxygen; Z79.4 Long term (current) use of insulin; Z71.6 Tobacco abuse counseling; Z90.49 Acquired absence of other specified parts of digestive tract; Z98.51 Tubal ligation status; Z88.0 Allergy status to penicillin; Z82.49 Family history of ischemic heart disease and other diseases of the circulatory system; Z83.3 Family history of diabetes mellitus; Z82.3 Family history of stroke; Z79.82 Long term (current) use of aspirin

== ENCOUNTER 2017-10-02 14:42 | Inpatient (IN) | payer OTHER, MEDICARE ==
[2017-10-02] VITALS (9 sets, daily range): BP systolic 132–150; BP diastolic 55–74
[~2017-10-02] VITALS: Ht 170.1 cm; Wt 147.4 kg
--- NOTE | ~2017-10-02 | EKG ---
[place], [place] ELECTROCARDIOGRAM REPORT NAME: VLADISLAV GALDAMEZ UNIT #: [id number] ROOM: 411 DOCTOR: KELLI DRAFT REPORT BIRTHDATE: [birth year] [facility] Test Date: 2017-10-02 Test Time: 15:02:03 Pat Name: VLADISLAV GALDAMEZ Department: Room: Gender: F Monologist: : 1950 Requested By: TANGELA HYATT Order Number: [id number] Reading MD: Orin Peace MD Measurements Intervals [place] Rate: 102 P: NM: QRS: 77 QRSD: 95 T: -35 QT: 346 QTc: 451 Interpretive Statements Atrial fibrillation Nonspecific repol abnormality, diffuse leads Compared to ECG 09/27/2017 11:37:25 Electronically Signed On 10-03-2017 8:17:50 PDT by Orin Peace MD CM:EKGRPT:ELECTROCARDIOGRAM REPORT [id number] TANGELA PICKARD DRAFT REPORT TANGELA HYATT DO
[~2017-10-02 14:42] MED LIST changes: +ASPIRIN ADULT L81 M2 PO; +KLOR-CON M2020 ME1 PO; +LOPRESSOR25 MG PO; +NICODERM T
[2017-10-02 15:41] LABS: BASO % 0.3 % (0.0-1.0); HEMOGLOBIN 18.2 g/dl (12.0-16.0); LYMPH # 1.4 10*3/uL (1.3-4.4); MEAN CELL VOLUME 89.6 fl (81.0-99.0); MEAN CORPUSCULAR HGB 29.6 pg (27.0-31.0); MEAN CORPUSCULAR HGB CONC 33.1 g/dl (33.0-37.0); MEAN PLATELET VOLUME 10.7 fl (9.6-12.3); MONO # 0.8 10*3/uL (0.1-1.0); MONO % 7.5 % (3.0-9.0); NEUT # 8.7 10*3/uL (2.3-7.9); NEUT % 78.9 % (47.0-73.0); PLATELET COUNT AUTOMATED 314 10*3/uL (130-400); RED BLOOD COUNT 6.14 10*6/uL (4.10-5.10); RED CELL DISTRI WIDTH 14.1 % (0-14.5)
[2017-10-02 15:55] LABS: INTERNATIONAL NORM RATIO 1.1 (2.0-3.5)
[2017-10-02 15:57] LABS: ALBUMIN 3.4 gm/dl (3.1-4.5); ALKALINE PHOSPHATASE 79 U/L (45-117); BUN 23 mg/dl (7-24); CHLORIDE 101 mmol/L (98-107); CREATININE 0.96 mg/dL (0.55-1.02); LIPASE 80 U/L (73-393); POTASSIUM 3.8 mmol/L (3.5-5.1); SGOT/AST 10 IU/L (3-35); SGPT/ALT 18 U/L (12-78); SODIUM 134 mmol/L (136-145); TOTAL PROTEIN 7.7 gm/dL (6.4-8.2)
[2017-10-02 15:59] LABS: TROPONIN I 0.086 ng/ml (<0.045)
[2017-10-02 16:05] LABS: BILIRUBIN NEGATIVE (NEGATIVE); BLOOD NEGATIVE (NEGATIVE); CLARITY SL CLOUDY (CLEAR); COLOR YELLOW (YELLOW); GLUCOSE NEGATIVE (NEGATIVE); KETONE TRACE (NEGATIVE); LEUKO ESTERASE NEGATIVE (NEGATIVE); NITRITE NEGATIVE (NEGATIVE); UROBILINOGEN 0.2 E.U./dl (0.2-1.0)
[2017-10-02 16:22] LABS: BACTERIA 3+; EPITHELIAL CELLS 0-2; WBC 0-2 wbc/hpf (0-5)
[2017-10-02] MEDS ORDERED: ADMELOG SO100 UNIT/1 SC (21:15)
[2017-10-02 21:21] LABS: ABG BASE EXCESS 2.1 mmol/L (-2.0-2.0); ABG HCO3 25.9 mmol/l (22-26); ABG O2 SATURATION 93.3 % (95-97); ARTERIAL BLOOD GAS PCO2 39.9 mmHg (35-45); ARTERIAL BLOOD GAS PH 7.429 (7.35-7.45)
[2017-10-03] VITALS: BP 140/90
[2017-10-03 05:37] LABS: BASO % 0.3 % (0.0-1.0); EOS % 0.1 % (1.0-4.0); HEMATOCRIT 57.2 % (37.0-47.0); HEMOGLOBIN 18.9 g/dl (12.0-16.0); LYMPH # 2.4 10*3/uL (1.3-4.4); LYMPH % 16.1 % (27.0-41.0); MEAN CELL VOLUME 90.6 fl (81.0-99.0); MEAN PLATELET VOLUME 10.7 fl (9.6-12.3); MONO # 1.3 10*3/uL (0.1-1.0); MONO % 8.5 % (3.0-9.0); NEUT # 10.9 10*3/uL (2.3-7.9); NEUT % 74.6 % (47.0-73.0); PLATELET COUNT AUTOMATED 307 10*3/uL (130-400); RED BLOOD COUNT 6.31 10*6/uL (4.10-5.10); WHITE BLOOD COUNT 14.6 10*3/uL (4.8-10.8)
[2017-10-03 05:59] LABS: BUN 24 mg/dl (7-24); CHLORIDE 101 mmol/L (98-107); CREATININE 1.03 mg/dL (0.55-1.02); PHOSPHOROUS 3.1 mg/dL (2.5-4.9); POTASSIUM 4.1 mmol/L (3.5-5.1); SODIUM 137 mmol/L (136-145)
[2017-10-03 08:00] VITALS: BP 120/62
[2017-10-03 12:00] VITALS: BP 123/66
[2017-10-03 16:00] VITALS: BP 151/83
[2017-10-03 20:00] VITALS: BP 145/80
[2017-10-04] VITALS: BP 135/65
[2017-10-04 08:00] VITALS: BP 150/86
[2017-10-04 12:00] VITALS: BP 132/56
[2017-10-04] MEDS ORDERED: METOPROLOL TART50 M1 PO (13:10)
[2017-10-04] MEDS ORDERED: NYSTOP60 GM T (13:10)
== END 2017-10-04 15:00 | disposition other institution (70) | DRG 308 ==
LOC: ED 14:42 → EDHOLD 18:15 → 4E 18:15
PROVIDERS: Emergency Medicine; Internal Medicine
DX: I48.0 Paroxysmal atrial fibrillation (principal); G93.41 Metabolic encephalopathy; E43 Unspecified severe protein-calorie malnutrition; L89.302 Pressure ulcer of unspecified buttock, stage 2; I50.32 Chronic diastolic (congestive) heart failure; D75.1 Secondary polycythemia; E11.65 Type 2 diabetes mellitus with hyperglycemia; R65.10 Systemic inflammatory response syndrome (SIRS) of non-infectious origin without acute organ dysfunction; E66.01 Morbid (severe) obesity due to excess calories; E87.1 Hypo-osmolality and hyponatremia; Z99.81 Dependence on supplemental oxygen; Z68.43 Body mass index [BMI] 50.0-59.9, adult; J44.9 Chronic obstructive pulmonary disease, unspecified; M54.9 Dorsalgia, unspecified; G89.29 Other chronic pain; R10.9 Unspecified abdominal pain; I35.0 Nonrheumatic aortic (valve) stenosis; R09.02 Hypoxemia; D72.825 Bandemia; I25.10 Atherosclerotic heart disease of native coronary artery without angina pectoris; F17.200 Nicotine dependence, unspecified, uncomplicated; I87.2 Venous insufficiency (chronic) (peripheral); R26.2 Difficulty in walking, not elsewhere classified; K42.9 Umbilical hernia without obstruction or gangrene; K21.9 Gastro-esophageal reflux disease without esophagitis; L30.4 Erythema intertrigo; Z88.0 Allergy status to penicillin; Z79.4 Long term (current) use of insulin; Z79.82 Long term (current) use of aspirin; Z79.84 Long term (current) use of oral hypoglycemic drugs; Z71.6 Tobacco abuse counseling; Z98.51 Tubal ligation status; Z82.49 Family history of ischemic heart disease and other diseases of the circulatory system; Z83.3 Family history of diabetes mellitus; Z82.3 Family history of stroke

== ENCOUNTER 2018-09-19 03:59 | Inpatient (IN) | payer MEDICARE ==
[~2018-09-19] VITALS: Ht 160 cm; Wt 94.1 kg
[2018-09-19] VITALS (8 sets, daily range): BP systolic 107–144; BP diastolic 47–66
--- NOTE | ~2018-09-19 | EKG ---
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
--- NOTE | ~2018-09-19 | EKG ---
[place], [place] ELECTROCARDIOGRAM REPORT NAME: VLADISLAV GALDAMEZ UNIT #: [id number] ROOM: 518 DOCTOR: IRMAANY DRAFT REPORT BIRTHDATE: [birth year] [facility] Test Date: 2018-09-19 Test Time: 04:23:29 Pat Name: VLADISLAV GALDAMEZ Department: Room: 518 Gender: F Patient Services Representative: : 1950 Requested By: KATY PARRA Order Number: [id number] Reading MD: Orin Peace MD Measurements Intervals [place] Rate: 70 P: 62 OR: 172 QRS: 42 QRSD: 90 T: -61 QT: 348 QTc: 376 Interpretive Statements Sinus rhythm Atrial premature complex Probable left atrial enlargement Probable LVH with secondary repol abnrm Compared to ECG 09/08/2018 20:20:20 Atrial premature complex(es) now present Sinus arrhythmia no longer present ST (T wave) deviation no longer present Electronically Signed On 09-22-2018 11:39:16 PDT by Orin Peace MD CM:EKGRPT:ELECTROCARDIOGRAM REPORT [id number] 1139 KATY PEREIRA DRAFT REPORT KATY PARRA MD
--- NOTE | ~2018-09-19 | EKG ---
[place], [place] ELECTROCARDIOGRAM REPORT NAME: VLADISLAV GALDAMEZ UNIT #: [id number] ROOM: 518 DOCTOR: IRMAANY DRAFT REPORT BIRTHDATE: [birth year] [facility] Test Date: 2018-09-19 Test Time: 10:27:26 Pat Name: VLADISLAV GALDAMEZ Department: Room: 518 Gender: F Commercial Collector: Tammy Zazueta : 1950 Requested By: KATY PARRA Order Number: [id number] Reading MD: Orin Peace MD Measurements Intervals [place] Rate: 86 P: 65 RI: 162 QRS: 45 QRSD: 87 T: -69 QT: 372 QTc: 445 Interpretive Statements Sinus rhythm Borderline repolarization abnormality Compared to ECG 09/08/2018 20:20:20 Sinus arrhythmia no longer present ST (T wave) deviation no longer present Electronically Signed On 09-20-2018 9:11:47 PDT by Orin Peace MD CM:EKGRPT:ELECTROCARDIOGRAM REPORT 1027 0911 KATY PARRA MD EPIPHANY DRAFT REPORT KATY PARRA MD
--- NOTE | ~2018-09-19 | DS ---
[place], [place] DISCHARGE SUMMARY [id number] #: [id number] ROOM: 518 DOCTOR: BHARATHI CR MD BIRTHDATE: [birth year] DOS: 09/21/2018 DIAGNOSES: 1. Severe aortic stenosis, requiring valve replacement. The patient to see a cardiothoracic surgeon at [facility]. 2. Adult failure to thrive. 3. Cellulitis of lower legs which is improving. 4. Chest pain, ruled out myocardial infarction. 5. Chronic pain. 6. Long-term use of opiates. 7. Type 2 diabetes mellitus. 8. Digoxin toxicity. HOSPITAL COURSE: This patient is not known to me, comes in with complaints of chest pain from a local longterm. She was just transferred there recently. The patient was admitted. Rule out [place] protocol was done, which came back negative. Cardiology consultation was obtained. The patient has severe aortic stenosis and needs to follow up with Cardiothoracic Surgery at [facility] for valve replacement. Cellulitis of the lower legs were noted. The patient was placed on IV antibiotics, which helped improve the redness in the leg swelling. The patient continued to complain of chronic pain. She is already on opiates. No further changes made in the treatment plan. Digoxin was pretty high. Digoxin binder was given. The patient is overall stable and improved. The plan is to discharge her back to the longterm for continued care by Dr. Dacosta there. The patient to also see Cardiology, an appointment made for her surgery. BHARATHI CR MD CM:DISCHARG [id number] BHARATHI CR MD 09/30/18 1756 interface
--- NOTE | ~2018-09-19 | WRIGHTHP ---
[place], [place] PATIENT HISTORY AND PHYSICAL EXAM [id number] #: [id number] ROOM: 518 DOCTOR: BHARATHI CR MD BIRTHDATE: [birth year] DOS: 09/19/2018 HISTORY OF PRESENT ILLNESS: This patient is 68 years old. The patient is currently a resident of [facility], was sent out because of complaints of chest pain. The patient states that she has experienced some pain across the left side of her chest since yesterday, requested that she be sent out. She has also noticed increased swelling in both her legs and redness and she got there. She denies having any fever, chills, any shortness of breath. Unfortunately, continues to smoke and has chronic pains and requesting pain medications. PAST MEDICAL HISTORY: Significant for: 1. Severe aortic stenosis, requiring valve surgery, but unfortunately has not seen a specialist yet. 2. Adult failure to thrive, was at [facility] for physical therapy. 3. Moderate protein-calorie malnutrition. 4. Chronic atrial fibrillation, on long-term use of anticoagulants. 5. Benign hypertension. 6. Chronic low back pain with long-term use of opiates. 7. Major depression, moderate, recurrent. 8. Coronary artery disease with history of stent placement. 9. COPD. 10. Type 2 diabetes mellitus. MEDICATIONS: That the patient is currently on are vitamin C 1000 units daily, Eliquis 5 b.i.d., atorvastatin 80 daily, digoxin 0.25 daily, diltiazem 60 daily, duloxetine 60 daily, glimepiride 2 mg daily, hydrocodone 1 tablet q. 6, metoprolol 50 b.i.d., Protonix 40 daily, Lyrica 300 b.i.d., Evista 60 daily, Carafate 1 gram q.i.d., tizanidine 4 mg q. 6, Nicoderm patch daily. SOCIAL HISTORY: Smoker of about close to 1 pack of cigarettes a day. Denies using any alcohol. PHYSICAL EXAMINATION: GENERAL: She is awake and alert and oriented, in mild respiratory distress, complains of pain across the left side of her chest. VITAL SIGNS: Graphic trend shows a pressure of 132/70, pulse of 76, respirations 14, afebrile. LUNGS: Diminished breath sounds. No wheezes, rales or rhonchi heard. HEART: Regular with a loud systolic murmur in the second space. ABDOMEN: Obese, soft. EXTREMITIES: 2+ pitting edema bilaterally lower legs extending up to the knees. The skin is quite red and taut and angry looking. LABORATORY DATA: At the time of admission, white cell count is 10.8, hemoglobin 14.5, hematocrit 44.3. Dig 2.02. Comprehensive glucose 166, BUN 16, creatinine 0.88, sodium 141, potassium 3.9, chloride 107, bicarbonate 30. EKG showed sinus rhythm, nonspecific ST changes. Troponin first set 0.04. ASSESSMENT AND PLAN: [place], [place] PATIENT HISTORY AND PHYSICAL EXAM NAME: [id number] #: [id number] ROOM: 518 DOCTOR: BHARATHI CR MD BIRTHDATE: [birth year] 1. The patient comes with chest pain, precordial pain, rule out myocardial infarction protocol. Cardiology consultation obtained. 2. Severe aortic stenosis. We will consult Cardiothoracic Surgery upon discharge. 3. Digoxin toxicity. Discontinue digoxin. Dig binder can be given. Present no arrhythmias noted. 4. Bilateral leg edema with cellulitis of lower legs ____ antibiotics. Venous Doppler has been ordered. 5. Chronic pain, on long-term use of opiates, which have been reordered along with Lyrica. 6. Type 2 diabetes mellitus and blood sugars to be checked twice daily. ADA diet ordered DICTATION ENDS HERE BHARATHI CR MD CM:HISPHYS:PATIENT HISTORY AND PHYSICAL EXAMINATION [id number] BHARATHI CR MD 09/19/18 1217 interface
--- NOTE | ~2018-09-19 | PR ---
[place], [place] PROGRESS NOTE [id number] #: [id number] ROOM: 518 DOCTOR: BHARATHI CR MD BIRTHDATE: [birth year] DOS: SUBJECTIVE: The patient is about the same, does not have any new complaints. OBJECTIVE: VITAL SIGNS: Graphic trend shows a pressure of 102/47, pulse of 74, respirations 18, temperature 98.0. LUNGS: Diminished breath sounds. Clear. HEART: Regular. ABDOMEN: Obese. EXTREMITIES: Without any edema, decreased redness and swelling noticed. ASSESSMENT AND PLAN: 1. Precordial chest pain, non-ST elevation myocardial infarction. Dr. Peace is following. 2. Digoxin toxicity. Digoxin levels have come down. 3. Cellulitis of the lower legs, improving on IV antibiotics. 4. Aortic stenosis to be seen by the Cardiothoracic Surgery as an outpatient. 5. Adult failure to thrive. The plan is to discharge to [facility]. BHARATHI CR MD CM:PNTRANS 0822 [id number] BHARATHI CR MD 09/21/18 1559 interface
--- NOTE | ~2018-09-19 | PR ---
[place], [place] PROGRESS NOTE [id number] #: [id number] ROOM: 518 DOCTOR: BHARATHI CR MD BIRTHDATE: [birth year] DOS: SUBJECTIVE: The patient is resting comfortably. Appreciate Dr. Peace's input. The patient is not having any new complaints other than wanting more pain medications. OBJECTIVE: VITAL SIGNS: Blood pressure is 126/50, pulse of 90, respirations 18, temperature 98.3. LUNGS: Clear. HEART: Regular. ABDOMEN: Obese, soft. EXTREMITIES: Decreased redness and decreased swelling. LABORATORY DATA: No labs available this morning. ASSESSMENT AND PLAN: 1. Precordial pain with chronic troponin elevation, on maximal treatment plan. Dr. Peace suggested doing cardiac catheterization. We will see whether he would like the patient to be transferred. 2. Cellulitis of the lower legs with lymphedema, on diuretics and antibiotics, which are being continued. Venous Doppler was ordered. Unfortunately, this was not performed. 3. Digitoxicity. Digoxin has been discontinued. 4. Chronic pain, multifactorial, on long-term use of opiates, which are being continued. 5. Severe aortic stenosis, requiring surgery as an outpatient. BHARATHI CR MD CM:PNTRANS [id number] [id number] BHARATHI CR MD 09/20/18 2150 interface
[~2018-09-19 03:59] MED LIST changes: +ADMELOG SO100 UNIT/1 SC; +COMPLETE MULTI1 EAC1 PO; +Carafate1 GM/10 ML PO; +DILTIAZEM HCL60 M1 PO; +FISH OIL 1,0001 EAC3 PO; +HYDROCODONE-AC1 EAC1 PO; +METOPROLOL TART50 M1 PO; +NYSTOP60 GM T; +VITAMIN C1000 M5 PO; +XTAMPZA ER13.5 MG PO
[2018-09-19 04:31] LABS: BILIRUBIN NEGATIVE (NEGATIVE); BLOOD NEGATIVE (NEGATIVE); CLARITY CLEAR (CLEAR); COLOR YELLOW (YELLOW); GLUCOSE NEGATIVE (NEGATIVE); KETONE NEGATIVE (NEGATIVE); LEUKO ESTERASE NEGATIVE (NEGATIVE); NITRITE NEGATIVE (NEGATIVE); PH 5.5 (5.0-9.0); SPECIFIC GRAVITY <= 1.005 (1.005-1.030); UROBILINOGEN 0.2 E.U./dl (0.2-1.0)
[2018-09-19 04:41] LABS: EPITHELIAL CELLS 35-40; YEAST TRACE
[2018-09-19 05:08] LABS: BASO % 0.4 % (0.0-1.0); EOS # 0.2 10*3/uL (0.0-0.4); EOS % 1.9 % (1.0-4.0); HEMATOCRIT 44.3 % (37.0-47.0); HEMOGLOBIN 14.5 g/dl (12.0-16.0); LYMPH # 3.8 10*3/uL (1.3-4.4); LYMPH % 35.1 % (27.0-41.0); MEAN CELL VOLUME 94.7 fl (81.0-99.0); MEAN CORPUSCULAR HGB CONC 32.7 g/dl (33.0-37.0); MEAN PLATELET VOLUME 10.5 fl (9.6-12.3); MONO # 0.7 10*3/uL (0.1-1.0); MONO % 6.4 % (3.0-9.0); NEUT % 55.9 % (47.0-73.0); PLATELET COUNT AUTOMATED 184 10*3/uL (130-400); RED BLOOD COUNT 4.68 10*6/uL (4.10-5.10); RED CELL DISTRI WIDTH 13.9 % (0-14.5); WHITE BLOOD COUNT 10.8 10*3/uL (4.8-10.8)
[2018-09-19 05:22] LABS: ACT PARTIAL THROMBO TIME 28.6 SECONDS (20.0-32.1); ALBUMIN 2.7 gm/dl (3.1-4.5); ALKALINE PHOSPHATASE 73 U/L (45-117); BUN 16 mg/dl (7-24); CHLORIDE 107 mmol/L (98-107); CREATININE 0.88 mg/dL (0.55-1.02); POTASSIUM 3.9 mmol/L (3.5-5.1); SGOT/AST 17 IU/L (3-35); SGPT/ALT 17 U/L (12-78); SODIUM 141 mmol/L (136-145); TOTAL PROTEIN 6.1 gm/dL (6.4-8.2); TROPONIN I 0.022 ng/ml (<0.045)
[2018-09-20] VITALS: BP 126/50
[2018-09-20 12:00] VITALS: BP 136/78
[2018-09-20 16:00] VITALS: BP 107/42
[2018-09-20 20:00] VITALS: BP 112/59
[2018-09-21] VITALS: BP 102/47
[2018-09-21 08:00] VITALS: BP 110/58
[2018-09-21] MEDS ORDERED: DOXYCYCLINE100 M3 PO (08:22)
[2018-09-21 12:00] VITALS: BP 119/61
== END 2018-09-21 15:45 | disposition other institution (70) | DRG 306 ==
LOC: ED 03:59 → 5E 05:23 → EDHOLD 05:23 → 5E 05:53
PROVIDERS: Emergency Medicine Emergency Medical Services; ADMIT Internal Medicine
DX: I35.0 Nonrheumatic aortic (valve) stenosis (principal); J18.9 Pneumonia, unspecified organism; L03.115 Cellulitis of right lower limb; L03.116 Cellulitis of left lower limb; R07.9 Chest pain, unspecified; E66.9 Obesity, unspecified; E78.5 Hyperlipidemia, unspecified; I48.2 Chronic atrial fibrillation; R62.7 Adult failure to thrive; G89.29 Other chronic pain; M54.9 Dorsalgia, unspecified; K21.9 Gastro-esophageal reflux disease without esophagitis; T46.0X5A Adverse effect of cardiac-stimulant glycosides and drugs of similar action, initial encounter; I89.0 Lymphedema, not elsewhere classified; E11.9 Type 2 diabetes mellitus without complications; J44.9 Chronic obstructive pulmonary disease, unspecified; I11.0 Hypertensive heart disease with heart failure; I50.9 Heart failure, unspecified; I25.10 Atherosclerotic heart disease of native coronary artery without angina pectoris; Z88.0 Allergy status to penicillin; Z79.84 Long term (current) use of oral hypoglycemic drugs; Z90.49 Acquired absence of other specified parts of digestive tract; Z98.51 Tubal ligation status; Z82.49 Family history of ischemic heart disease and other diseases of the circulatory system; Z83.3 Family history of diabetes mellitus; Z82.3 Family history of stroke; Y92.89 Other specified places as the place of occurrence of the external cause; Z95.5 Presence of coronary angioplasty implant and graft; Z68.36 Body mass index [BMI] 36.0-36.9, adult

== ENCOUNTER 2018-10-11 07:26 | Inpatient (IN) | payer MEDICARE ==
[~2018-10-11] VITALS: Ht 160 cm; Wt 94.1 kg
[2018-10-11] VITALS (9 sets, daily range): BP systolic 82–142; BP diastolic 52–84
--- NOTE | ~2018-10-11 | WRIGHTHP ---
[place], [place] PATIENT HISTORY AND PHYSICAL EXAM NAME: VLADISLAV GALDAMEZ [facility] #: [id number] UNIT #: [id number] ROOM: [facility] DOCTOR: JUANI HATCH MD BIRTHDATE: [birth year] DOS: HISTORY OF PRESENT ILLNESS: The patient is a 68-year-old female with a past medical history of: 1. Severe aortic stenosis with chronic CHF which requires a valve replacement. 2. Advanced adult failure to thrive. 3. Morbid obesity. 4. Continued nicotine smoke dependence. The patient smokes 3 packs of cigarettes a day still. 5. Chronic pain syndrome. 6. Pain syndrome and long-term use of opiates. 7. Type 2 diabetes mellitus. 8. Oicywpru-rs-lmlbfl protein-calorie malnutrition. 9. Chronic atrial fibrillation. 10. Chronic lower back pains and lumbar spondylosis. 11. Major depression, recurrent, moderate. 12. Coronary artery disease of the [place] vessels. 13. Gastroesophageal reflux disease and esophagitis. 14. COPD. 15. Chronic diastolic type CHF. The patient presented to the Emergency Department with increasing shortness of breath and hypoxemia. In the Emergency Department, the patient was found to be in acute diastolic type CHF and acute exacerbation of COPD with acute over chronic respiratory failure. No complaints of chest pain. No dizziness or fainting episodes. No other GI or urinary symptoms. REVIEW OF SYSTEMS: RESPIRATORY: Increasing shortness of breath. GASTROINTESTINAL: No nausea, vomiting, diarrhea or constipation. CARDIOVASCULAR: No chest pains or palpitations. FAMILY HISTORY: Noncontributory. SOCIAL HISTORY: , was living with her . Smokes 3 packs of cigarettes a day. Denies any alcohol or drug abuse. HOME MEDICATIONS: Protonix, glimepiride, nicotine, Cymbalta, metoprolol, Lipitor, apixaban, tizanidine, diltiazem. The patient also on Levaquin. PHYSICAL EXAMINATION: GENERAL: The patient is somewhat lethargic and weak, but does wake up. She is on BiPAP. Generalized weakness and morbid obesity. HEENT AND NECK: Extraocular movements are intact. Sclerae are anicteric. Oral mucosa is moist and clean. No obvious facial weakness. Neck is supple without any lymphadenopathy. No thyromegaly. No JVD. No carotid arterial bruits. LUNGS: Clear to auscultation. No wheezing. No rhonchi. CARDIOVASCULAR SYSTEM: Heart rate is regular in rate and rhythm. S1 and S2 [place], [place] PATIENT HISTORY AND PHYSICAL EXAM NAME: [id number] UNIT #: [id number] ROOM: [facility] DOCTOR: JUANI HATCH MD BIRTHDATE: [birth year] normally audible. No significant murmur or any other abnormal cardiac sounds. ABDOMEN: Soft, nontender. No obvious organomegaly. Bowel sounds are present. No obvious herniation. EXTREMITIES: Trace leg and pedal edema with signs of chronic venous stasis in lower extremities. Warm to touch. CENTRAL NERVOUS SYSTEM: Alert and oriented x 3. Cranial nerves II-XII are intact. Speech is normal. The patient is able to move all extremities. Normal muscle strength. Deep tendon reflexes are equal on both sides. Plantars were downgoing. IMPRESSION: 1. Acute over chronic diastolic type congestive heart failure, to be treated with diuresis. Cardiology consulted. 2. Sepsis with white cell count of 17,000; hypotension; tachycardia with a heart rate up to 128 beats per minute. 3. Acute respiratory failure, to be treated with antibiotics. Dr. Carvajal has been consulted for respiratory failure. The patient is PENICILLIN allergic. 4. Chronic atrial fibrillation. The patient on digoxin. Heart rates to be monitored and controlled. The patient is being followed closely in the ICU. 5. Benign essential hypertension. Blood pressures to be monitored and treated. 6. Coronary artery disease of the [place] vessels without chest pains. Cardiology consulted to follow. 7. Moderate to severe protein-calorie malnutrition. The patient to follow with Dietary. 8. Morbid obesity. The patient to be followed by Dietary, diet controlled. 9. Advanced adult failure to thrive. The patient to work with physical therapy. We will take bedsore and fall precautions. 10. Acute exacerbation of chronic obstructive pulmonary disease, to be treated with bronchodilators. Dr. Carvajal following. The patient is also on BiPAP for acute respiratory failure. JUANI HATCH MD CM:HISPHYS:PATIENT HISTORY AND PHYSICAL EXAMINATION 1035 [id number] JUANI HATCH MD 10/11/18 1104 interface
--- NOTE | ~2018-10-11 | PR ---
[place], [place] PROGRESS NOTE NAME: VLADISLAV GALDAMEZ [facility] #: [id number] UNIT #: [id number] ROOM: [facility] DOCTOR: HOLDEN SHARMA,JUANI Douglass BIRTHDATE: [birth year] DOS: 10/12/2018 SUBJECTIVE: The patient is starting to breathe better. OBJECTIVE: VITAL SIGNS: Blood pressure 104/66, heart rate of 118 beats per minute, breathing 22 times per minute and temperature 99.6 degrees Fahrenheit. GENERAL APPEARANCE: The patient is alert and oriented x 3, in no visible distress, obesity. HEENT AND NECK: Exam within normal limits. CARDIOVASCULAR SYSTEM: Heart rate is regular in rate and rhythm. S1 and S2 normally audible. LUNGS: Clear to auscultation. ABDOMEN: Soft, nontender. No obvious organomegaly. Bowel sounds are present. EXTREMITIES: Without significant cyanosis or edema. ASSESSMENT AND PLAN: 1. The patient with acute over chronic diastolic type congestive heart failure, diuresing well and breathing is improving. Cardiology following. 2. Sepsis with elevated white cell count, tachycardia, hypotension and hypoxemia all improving with treatment. 3. Acute respiratory failure, being treated with BiPAP. Dr. Carvajal, the bench machine operator has been following. 4. Chronic atrial fibrillation with controlled heart rates. 5. Benign essential hypertension. Blood pressures are treated and controlled. The patient was hypotensive with sepsis, but that has improved. 6. Morbid obesity. The patient is working with dietary. 7. Advanced adult failure to thrive. The patient is working with physical therapy. Dietary are taking bedsore and fall precautions. 8. Acute exacerbation of chronic obstructive pulmonary disease with acute respiratory failure, being treated with BiPAP, bronchodilators, oxygen. JUANI HATCH MD CM:PNTRANS [id number] JUANI HATCH MD 10/13/18 1221 interface
--- NOTE | ~2018-10-11 | PR ---
[place], [place] PROGRESS NOTE NAME: VLADISLAV GALDAMEZ UNIT #: [id number] ROOM: [facility] DOCTOR: CULLEN SHARMA,MIMA BIRTHDATE: [birth year] DOS: 10/13/2018 REASON FOR VISIT: Atrial fibrillation with rapid ventricular rate and CHF and valvular heart disease. HISTORY OF PRESENT ILLNESS: The patient is feeling better. Denies any chest pain, shortness of breath. No PND or orthopnea. No dizziness. No fever and chills. No musculoskeletal symptoms. No neurologic symptoms. No genitourinary symptoms. Her breathing is much improved. REVIEW OF SYSTEMS: Review of 10 systems negative except as mentioned above. PHYSICAL EXAMINATION: VITAL SIGNS: Blood pressure 135/85, pulse 102, respiratory rate was 16. RHYTHM STRIPS: The patient in atrial fibrillation with occasional rapid ventricular rate. GENERAL: The patient is alert, comfort, no acute distress. HEENT: Pupils are round and equal. No jaundice. Tongue was moist. NECK: Supple. No distended neck veins, no carotid bruit. CHEST: Nontender. LUNGS: A few scattered rhonchi, slightly diminished at bases. HEART: Irregularly irregular, grade 2/6 systolic ejection murmur. No palpable thrills. ABDOMEN: Nontender. Bowel sounds normal. EXTREMITIES: Showed trace edema. Distal pulses palpable. SKIN: Warm and dry. No cyanosis, no clubbing. RECTAL: Deferred. GENITOURINARY: Deferred. NEUROLOGIC: The patient is alert with no focal neurologic deficit. CURRENT MEDICATIONS AND LABS: Reviewed. IMPRESSION: 1. Atrial fibrillation with rapid ventricular rate. 2. Acute on chronic diastolic heart failure. 3. Hypoxic respiratory failure. 4. Moderate to severe aortic stenosis. 5. Coronary artery disease. 6. Chronic kidney disease. 7. Hypertension. RECOMMENDATIONS: Increase her metoprolol to 50 three times a day for blood pressure and heart rates. The patient is asking whether if she can be transferred to [facility] for aortic valve surgery. I explained to her that her aortic valve surgery TAVR as an outpatient elective surgery and this not an inpatient procedure. [place], [place] PROGRESS NOTE NAME: VLADISLAV GALDAMEZ UNIT #: [id number] ROOM: [facility] DOCTOR: CULLEN SHARMA,MIMA BIRTHDATE: [birth year] The patient is symptomatic, feeling better and possible tentative discharge in the next 24-48 hours and she will follow with outpatient Cardiothoracic Surgery to evaluate for TAVR. No family at bedside at the time of my examination. Continue her cardiac medications including Eliquis. The pulmonary management is per Dr. Carvajal. MIMA BERMAN MD CM:FLORINDA [id number] MIMA BERMAN MD 10/14/18 1256 interface
--- NOTE | ~2018-10-11 | EKG ---
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
--- NOTE | ~2018-10-11 | PR ---
[place], [place] PROGRESS NOTE NAME: VLADISLAV GALDAMEZ UNIT #: [id number] ROOM: [facility] DOCTOR: JUANI HATCH MD BIRTHDATE: [birth year] DOS: 10/14/2018 SUBJECTIVE: The patient is feeling better. OBJECTIVE: GENERAL APPEARANCE: The patient is alert and oriented x 3, in no visible distress. Generalized weakness and morbid obesity. VITAL SIGNS: Blood pressure 113/59, heart rate of 75 beats per minute, breathing 18 times per minute, temperature 98.5 degrees Fahrenheit. HEENT AND NECK: Exam within normal limits. CARDIOVASCULAR SYSTEM: Heart rate is regular in rate and rhythm. S1 and S2 normally audible. LUNGS: Clear to auscultation. ABDOMEN: Soft, nontender. No obvious organomegaly. Bowel sounds are present. EXTREMITIES: Without significant cyanosis or edema. IMPRESSION: 1. The patient with severe aortic valve replacement. I am trying to get her transferred to [facility] for evaluation because she generally not able to make it there for an evaluation and she required a transcatheter aortic valve replacement. This was discussed with Dr. Brar, her brim buster, today. 2. Morbid obesity. The patient is working with Dietary. 3. Acute over chronic diastolic type congestive heart failure, treated with diuresis. Cardiology is following. 4. Chronic atrial fibrillation with rapid ventricular response, controlled with IV Cardizem. Treatment adjusted by Cardiology. 5. Sepsis with severe leukocytosis, fever, hypotension, all resolved with treatment of antibiotics. 6. Coronary artery disease of [place] vessels without chest pain. 7. Acute exacerbation of chronic obstructive pulmonary disease, improved with treatment. 8. Moderate to severe protein-calorie malnutrition. The patient will be followed by Dietary. 9. Advance adult failure to thrive. The patient worked with physical therapy, suboptimal prognosis. [place], [place] PROGRESS NOTE NAME: VLADISLAV GALDAMEZ UNIT #: [id number] ROOM: [facility] DOCTOR: JUANI HATCH MD BIRTHDATE: [birth year] JUANI HATCH MD CM:PNTRANS [id number] JUANI HATCH MD 10/15/18 0047 interface
--- NOTE | ~2018-10-11 | PR ---
[place], [place] PROGRESS NOTE NAME: VLADISLAV GALDAMEZ UNIT #: [id number] ROOM: [facility] DOCTOR: CULLEN SHARMA,MIMA BIRTHDATE: [birth year] DOS: 10/12/2018 REASON FOR VISIT: Atrial fibrillation with rapid ventricular rate and heart failure. HISTORY OF PRESENT ILLNESS: The patient is feeling better. Denies any chest pain, shortness of breath. Last night, she went into atrial fib with RVR. No PND, no orthopnea. No nausea, vomiting, diarrhea. No fever and chills. No cough or hemoptysis. No bladder or bowel symptoms. No genitourinary symptoms. REVIEW OF SYSTEMS: Review of 10 systems negative except as mentioned above. PHYSICAL EXAMINATION: VITAL SIGNS: Blood pressure 101/57, pulse 94, respiratory rate is 18. RHYTHM STRIPS: The patient in atrial fibrillation, controlled ventricular rates. GENERAL: Alert, comfortable, in no acute distress. NECK: Supple, no distinct mass, no carotid bruit. CHEST: Symmetrical, nontender. LUNGS: A few scattered rhonchi. HEART: Irregularly irregular, grade 2/6 systolic murmur. No palpable thrills. ABDOMEN: Nontender. EXTREMITIES: Showed trace edema. Distal pulses palpable. SKIN: Warm and dry. No cyanosis, no clubbing. RECTAL: Deferred. GENITOURINARY: Deferred. NEUROLOGIC: The patient is alert with no focal neurologic deficit. DIAGNOSTIC DATA, LABORATORIES AND MEDICATIONS: Reviewed. IMPRESSION: 1. Atrial fibrillation with rapid ventricular rate. 2. Acute on chronic diastolic heart failure. 3. Acute respiratory failure, improved. 4. Severe aortic stenosis. 5. Coronary artery disease. 6. History of hypertension. 7. Diabetes. 8. Chronic kidney disease. RECOMMENDATIONS: 1. Wean off IV Cardizem and start her on low dose metoprolol. 2. We will resume her home Lipitor. 3. We will give her Lasix 20 mg IV today and as needed. 4. Continue to watch heart rate, blood pressures and daily weights and renal function. 5. No family at bedside at the time of examination. [place], [place] PROGRESS NOTE NAME: VLADISLAV GALDAMEZ UNIT #: [id number] ROOM: [facility] DOCTOR: CULLEN SHARMA,MIMA BIRTHDATE: [birth year] MIMA BERMAN MD CM:FLORINDA [id number] MIMA BERMAN MD 10/12/18 235 interface
--- NOTE | ~2018-10-11 | CON ---
[place], [place] REPORT OF CONSULTATION NAME: VLADISLAV GALDAMEZ UNIT #: [id number] ROOM: [facility] DOCTOR: CULLEN SHARMA,MIMA BIRTHDATE: [birth year] DOS: 10/11/2018 CARDIOLOGY CONSULTATION REASON FOR CONSULTATION: Atrial fibrillation with rapid ventricular rate. HISTORY OF PRESENT ILLNESS: The patient is a 68-year-old patient with history of paroxysmal atrial fibrillation, coronary artery disease, hypertension, aortic stenosis was presented to the Emergency Room for shortness of breath. The patient was recently in the hospital few weeks ago for sepsis, CHF and atrial fibrillation. The patient in the Emergency Room found to be severely hypoxic and also tachycardic and was admitted to the hospital and Cardiology consulted for any further recommendations. The patient at the time of examination was drowsy and slightly lethargic, but in no acute distress. Hence, the history was obtained from the chart and medical records as well as nursing staff. There is no family at bedside. Apparently, there is no chest pain, fever, or syncope prior to admission, so only complaint is shortness of breath per records. REVIEW OF SYSTEMS: Review of 10 systems are limited due to the patient's mental status. PAST MEDICAL HISTORY: 1. Paroxysmal atrial fibrillation. 2. Severe aortic stenosis. 3. Coronary artery disease status post stents x 2. 4. Hypertension. 5. Diabetes type 2. 6. Peptic ulcer disease. 7. Chronic obstructive pulmonary disease. 8. Diabetes. 9. Recent sepsis. 10. Chronic back pain. PAST SURGICAL HISTORY: History of laminectomy, right knee surgery, tubal ligation, appendectomy, and coronary stents. SOCIAL HISTORY: The patient does smoke. Does not drink alcohol, does not use illicit drugs. FAMILY HISTORY: Father had coronary artery disease. Mother has no CAD, but has diabetes and stroke. ALLERGIES: Reviewed. HOME MEDICATIONS: Reviewed. PHYSICAL EXAMINATION: VITAL SIGNS: Blood pressure 112/54, pulse 64, respiratory rate was 18. GENERAL: The patient was slightly lethargic and drowsy, arousable, but unable to answer any questions. The patient is on BiPAP. [place], [place] REPORT OF CONSULTATION NAME: VLADISLAV GALDAMEZ UNIT #: [id number] ROOM: [facility] DOCTOR: CULLEN SHARMA,MIMA BIRTHDATE: [birth year] HEAD AND NECK: Supple, no distended neck veins. No carotid bruit. CHEST: Symmetrical. LUNGS: A few scattered rhonchi. Fair air entry bilaterally. HEART: Regular rhythm, no S3. Grade 2-3/6 systolic murmur. No palpable thrills. ABDOMEN: Bowel sounds normal. No pulsatile mass. EXTREMITIES: Showed trace edema. Distal pulses are palpable. SKIN: Warm and dry. No cyanosis, no clubbing. RECTAL: Deferred. GENITOURINARY: Deferred. NEUROLOGIC: Due to patient's mental status, neurologic exam is limited. PSYCHIATRIC: Limited due to patient's mental status. REVIEW OF THE DIAGNOSTIC TESTS: EKG showed atrial fibrillation with rapid ventricular rate. CBC, chemistry reviewed. Lipid profile reviewed. Cardiac troponins are negative. BNP 3170. Echo from 08/2018 showed EF 65% with moderate severe aortic stenosis. IMPRESSION: 1. Atrial fibrillation with rapid ventricular rate, the patient is currently in sinus rhythm. 2. Hypoxic respiratory failure. 3. Hypertension, currently stable. 4. Severe aortic stenosis. 5. Coronary artery disease, status post stents x 2. 6. Diabetes. 7. Peptic ulcer disease. RECOMMENDATIONS: 1. Resume her beta lidya at low dose at 25 mg b.i.d. and monitor heart rate, blood pressures. 2. Continue her home cardiac medications. 3. Continue her Eliquis for anticoagulation. There is no family at bedside at the time of my examination. 4. No further cardiac testing. 5. The patient will be evaluated for a TAVR for her severe aortic stenosis. 6. Diuretics as needed. MIMA BERMAN MD CM:CONSTR:REPORT OF CONSULTATION 16 10/11/18 4522 interface
--- NOTE | ~2018-10-11 | CON ---
[place], [place] REPORT OF CONSULTATION NAME: [id number] UNIT #: [id number] ROOM: [facility] DOCTOR: ANNIE MARTIN MD,FRANCESCO BIRTHDATE: [birth year] DOS: 10/12/2018 PULMONARY CONSULTATION, EVALUATION AND MANAGEMENT CONSULTATION REQUESTED BY: Gilberto Dacosta MD REASON FOR CONSULTATION: For assessment of the respiratory failure. HISTORY OF PRESENT ILLNESS: The patient is a 68-year-old white female patient with history of chronic obstructive pulmonary disease, congestive heart failure and tobacco use. The patient presented to the Emergency Room as she has been reporting gradual increased respiratory symptom ongoing for the past several days. The symptoms are also associated with increasing edema of the lower extremities. The patient also noted history of severe aortic stenosis. The patient was noted with significant respiratory distress and also noted with acute on chronic hypercapnia hypoxic respiratory failure. She has been admitted to the hospital for further care as well. She has been admitted to the Intensive Care Unit where she has been started on the BiPAP from the Emergency Room that was continued in the intensive care unit setting of 30/12. The BiPAP resulting in reduction of the respiratory symptoms. She was stating decreased shortness of breath from yesterday, but resolution noted incomplete. Symptoms were not associated with any chest pain or anginal pain. The patient denies symptoms of hemoptysis with that. Cough has been noted mostly nonproductive. The patient noted with atrial fibrillation with rapid ventricular response for on this admission, started on treatment, responded to treatment with the use of IV Diprivan. REVIEW OF SYSTEMS: CONSTITUTIONAL: Fatigue and tiredness noted without any symptoms of fever or chills. Denies any burning, redness, or tenderness. EARS, NOSE AND THROAT: Denies sore throat, hoarseness, otalgia, postnasal drainage or epistaxis. CARDIOVASCULAR: Progressive edema of the lower extremity. There were no symptoms of anginal pain stated by the patient or palpitations. GASTROINTESTINAL: Dysphagia, nausea, vomiting, diarrhea, abdominal pain, hematemesis, melena, or hematochezia. SKIN: Denies abnormal lesions or rashes. MUSCULOSKELETAL: Reported chronic pain without any changes recently. There were deformities of the extremities. CENTRAL NERVOUS SYSTEM: The patient denies dizziness, headache, diplopia, syncopal episodes. Remaining systems were reviewed with the patient, they were noted all negative. PAST MEDICAL HISTORY: Known with a history of: 1. Congestive heart failure with systolic and diastolic dysfunction. 2. Severe aortic stenosis. 3. The patient with end-stage chronic obstructive pulmonary disease. 4. Chronic nicotine dependence. 5. History of panniculitis on the anterior abdominal wall. [place], [place] REPORT OF CONSULTATION NAME: VLADISLAV GALDAMEZ UNIT #: [id number] ROOM: [facility] DOCTOR: SAKSHI NOVA MDM BIRTHDATE: [birth year] 6. History of obesity hypoventilation syndrome. 7. The patient with a history of suspected obstructive sleep apnea disorder in the past, did not have any further investigation done. 8. History of diabetic nephropathy. 9. Coronary artery disease. 10. Gastroesophageal reflux. 11. Hypercholesterolemia. 12. Chronic wdmzovvi-yg-wqrbpk obesity. PAST SURGICAL HISTORY: 1. Tubal ligation. 2. Cataract extraction with lens implantation. 3. Right knee arthroscopy. 4. Bunion removal. 5. Cardiac catheterization. 6. Lumbar laminectomy. 7. Therapeutic bronchoscopy. 8. Previous intubation, mechanical ventilation. SOCIAL HISTORY: The patient is . She has been noted chronic nicotine dependence 2-3 packs of cigarettes per day. She does not tell me the actual amount of tobacco use at this time, but stated that she has been smoking at lot of cigarettes. FAMILY HISTORY: Reported for hypertension, stroke and diabetes mellitus. CURRENT MEDICATIONS: Administered noted as: 1. Evista. 2. Protonix. 3. Nicotine replacement patches. 4. Cymbalta. 5. Cardizem. 6. Intravenous drip with atrial fibrillation with rapid ventricle management. 7. Eliquis. 8. Lipitor. 9. Metoprolol tartrate. 10. Zanaflex. 11. Sliding scale of insulin for this patient coverage as well. 12. Lyrica. 13. Vicodin p.r.n. use. 14. The patient has been also administered the IV digoxin. DRUG ALLERGY HISTORY: Noted as ALLERGIES TO PENICILLINS. PHYSICAL EXAMINATION: GENERAL: This is a 68-year-old female patient who has been noted currently awake and alert without any acute distress this morning of assessment. Height recorded by the nursing staff on current admission with height of 5 feet 3 inches, weight of 218 pounds, BMI 38.6. VITAL SIGNS: Normal temperature, respiratory rate recorded as a 18-28. The [place], [place] REPORT OF CONSULTATION NAME: VLADISLAV GALDAMEZ UNIT #: [id number] ROOM: [facility] DOCTOR: ANNIE MARTIN MD,FRANCESCO BIRTHDATE: [birth year] temperature noted as normal. Heart rate as 128, 220 and 65, blood pressure 116/72. Pulse oxygen saturation recorded as 94% saturation on the BiPAP with nasal cannula is 95% saturation. HEENT: Examination shows head was atraumatic. Eyes nonicterus. NECK: Supple. CARDIOVASCULAR: S1, S2 is audible. LUNGS: Noted without any wheeze or crackles at the present time. ABDOMEN: Soft, nontender with moderate obesity. EXTREMITIES: Noted 2-3+ pitting edema. MUSCULOSKELETAL: Noted without any acute deformities. CENTRAL NERVOUS SYSTEM: Cranial nerves intact. LABORATORY DATA: The arterial blood gas in the Emergency Room, pH of 7.25, pCO2 of 54, pO2 of 87 with 50% oxygen, BiPAP. CMP of 10/11/2018, glucose 178, BUN normal, creatinine was normal. CO2 of 38. Lactic acid 4.9, subsequently 3.1-2.3. The PT/PTT yesterday noted as normal. The ProBNP was 3170. Arterial blood gas that was done later on BiPAP setting of 14/10 few hours after admission to the Intensive Care Unit, pH of 7.35., pCO2 of 49, and pO2 of 85.7 with 50% oxygen. The BMP that was done was noted normal BUN and creatinine today. CBC with WBC count 13.4. Hemoglobin and hematocrit was normal. IMPRESSION: The patient will be currently admitted to the hospital noted with: 1. Acute on chronic severe systolic and diastolic dysfunction with aortic stenosis. 2. Atrial fibrillation, rapid ventricular response with a history of chronic permanent atrial fibrillation. 3. Respiratory failure, acute on chronic hypercapnic and hypoxemic respiratory failure. 4. Coronary artery disease, coronary intervention as well. 5. Chronic obesity. 6. Chronic nicotine dependence. 7. The patient with chronic obstructive pulmonary disease exacerbation related to current congestive heart failure was very likely. 8. History of nonadherence to the treatment. PLAN OF MANAGEMENT: The patient already seen by the Cardiology Services. Follow the recommendation for congestive heart failure management for the COPD exacerbation. At this time, the patient would not require any corticosteroids administration. All of the chest x-ray for the assessment of resolution of congestive heart failure. Bronchodilator for the patient should suffice. If the patient started with having increased wheezing, certainly corticosteroid will be added to the treatment. Continue current replacement patches. Usual care, other therapy, plan of management. Additional treatment changes will be ordered based on the progression of the illness. Supportive care, plan of therapy as well. Other additional treatment changes will be made for this patient based on the progression of her illness. The tobacco cessation counseling was done at the bedside. Thank you for allowing me to participate in care of this patient. [place], [place] REPORT OF CONSULTATION NAME: VLADISLAV GALDAMEZ UNIT #: [id number] ROOM: [facility] DOCTOR: FRANCESCO NOVA MD BIRTHDATE: [birth year] FRANCESCO VALENCIA MD CM:CONSTR:REPORT OF CONSULTATION 1036 10/30/18 0920 interface
--- NOTE | ~2018-10-11 | EKG ---
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
--- NOTE | ~2018-10-11 | DS ---
[place], [place] DISCHARGE SUMMARY NAME: VLADISLAV GALDAMEZ [facility] #: [id number] UNIT #: [id number] ROOM: [facility] DOCTOR: JUANI HATCH MD BIRTHDATE: [birth year] DOS: 10/14/2018 DISCHARGE DIAGNOSES: 1. Acute systolic type congestive heart failure. 2. Severe aortic stenosis. The patient was sent to [facility] for aortic valve replacement. 3. Morbid obesity. 4. Advanced adult failure to thrive. 5. Severe protein-calorie malnutrition. 6. Acute exacerbation of severe chronic obstructive pulmonary disease and acute over chronic respiratory failure. 7. Coronary artery disease of [place] vessels. 8. Sepsis with severe leukocytosis, fever, hypotension. 9. Chronic atrial fibrillation. 10. Morbid obesity. 11. Chronic obstructive pulmonary disease. 12. Gastroesophageal reflux disease and esophagitis. 13. Coronary artery disease of the [place] vessels. 14. Major depression, recurrent, moderate. 15. Chronic pain syndrome with long-term use of opiates. HOSPITAL COURSE: The patient presented to the Emergency Department with increased shortness of breath, acute congestive heart failure with severe aortic stenosis, which was treated with diuresis with IV diuretics and serum electrolytes were monitored. The patient has failed to show up for her aortic valve replacement evaluation at [facility] in the past because of her advanced disability requirement for rehabilitation at [facility] and she was barely able to make it for a few days at home without being in a hospital or in a nursing facility, so at this time, we decided to send her to the [facility] for initial evaluation for aortic valve replacement. 1. Acute exacerbation of chronic obstructive pulmonary disease, treated with bronchodilators, oxygen, nebulizer treatments and improved. 2. Morbid obesity. The patient required physical therapy, nutritional consult. 3. Advanced adult failure to thrive. The patient worked with physical therapy. We took fall and bedsore precautions. 4. Chronic atrial fibrillation with controlled heart rates. The patient is anticoagulated. 5. Coronary artery disease of [place] vessels without chest pains. 6. Moderate to severe protein-calorie malnutrition. The patient worked with Dietary. 7. Coronary artery disease of the [place] vessels without chest pains. 8. Acute over chronic respiratory failure, treated with antibiotics, bronchodilators, diuresis. The patient improved. DISCHARGE MANAGEMENT: DuoNeb every 4 hours, Levaquin 500 mg daily, Cardizem infusion, Lasix 40 mg daily, Eliquis 5 mg b.i.d., Lipitor 80 mg a day, Cymbalta 60 mg a day, Amaryl 4 mg a day, Zanaflex as needed, Lyrica 300 mg b.i.d., Protonix 40 mg a day, Evista 60 mg a day, sliding scale of regular insulin, Lopressor 25 mg b.i.d., Lanoxin 250 mcg daily, [place] p.r.n. [place], [place] DISCHARGE SUMMARY NAME: VLADISLAV GALDAMEZ UNIT #: [id number] ROOM: [facility] DOCTOR: JUANI HATCH MD BIRTHDATE: [birth year] JUANI HATCH MD CM:JASMIN 0 00 JUANI HATCH MD 10/24/18 1101 interface
--- NOTE | ~2018-10-11 | PR ---
[place], [place] PROGRESS NOTE NAME: VLADISLAV GALDAMEZ UNIT #: [id number] ROOM: [facility] DOCTOR: JUANI HATCH MD BIRTHDATE: [birth year] DOS: 10/13/2018 SUBJECTIVE: The patient is feeling better. OBJECTIVE: VITAL SIGNS: Blood pressure 104/57, heart rate of 90 beats per minute, breathing 16 times per minute, temperature 98.4 degrees Fahrenheit. GENERAL APPEARANCE: The patient is alert and oriented x 3, in no visible distress. Generalized weakness and obesity. HEENT AND NECK: Exam within normal limits. CARDIOVASCULAR SYSTEM: Heart rate is regular in rate and rhythm. S1 and S2 normally audible. LUNGS: Clear to auscultation. ABDOMEN: Soft, nontender. No obvious organomegaly. Bowel sounds are present. EXTREMITIES: Without significant cyanosis or edema. IMPRESSION: 1. Atrial fibrillation with rapid ventricular response, now being controlled with metoprolol. She became somewhat tachycardic after IV Cardizem was stopped, went back into atrial fibrillation. 2. Acute over chronic diastolic type congestive heart failure. The patient is being diuresed. Dr. Gan following. 3. Severe aortic stenosis contributing to acute congestive heart failure. I will request Cardiology to transfer the patient to [place] to get an inpatient evaluation because she is failing to go as an outpatient. She gets sick before she is even evaluated for aortic valve replacement. 4. Sepsis with severe leukocytosis, fever, hypotension, has all resolved with treatment with antibiotics. 5. Coronary artery disease of [place] vessels without chest pains. Cardiology following. 6. Acute respiratory failure with acute exacerbation of chronic obstructive pulmonary disease, resolved. The patient is breathing better. She stays on chronic respiratory failure and smokes 3 packs of cigarettes a day against medical advice. 7. Moderate to severe protein-calorie malnutrition, followed by Dietary. 8. Morbid obesity, being followed by Dietary. 9. Advanced adult failure to thrive and suboptimal prognosis in the long run. We are taking bedsore and fall precautions. The patient working with physical therapy. [place], [place] PROGRESS NOTE NAME: VLADISLAV GALDAMEZ UNIT #: [id number] ROOM: [facility] DOCTOR: JUANI HATCH MDTE: 50 JUANI HATCH MD CM:PNTRANS 113 20 JUANI HATCH MD 10/13/182220 interface
--- NOTE | ~2018-10-11 | EKG ---
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
[2018-10-11 07:55] LABS: HEMATOCRIT 51.6 % (37.0-47.0); HEMOGLOBIN 16.2 g/dl (12.0-16.0); MEAN CELL VOLUME 97.4 fl (81.0-99.0); MEAN CORPUSCULAR HGB 30.6 pg (27.0-31.0); MEAN CORPUSCULAR HGB CONC 31.4 g/dl (33.0-37.0); PLATELET COUNT AUTOMATED 231 10*3/uL (130-400); RED CELL DISTRI WIDTH 14.3 % (0-14.5)
[2018-10-11 08:07] LABS: ABG BASE EXCESS -4.5 mmol/L (-2.0-2.0); ABG HCO3 23.5 mmol/l (22-26); ABG O2 SATURATION 95.7 % (95-97); ARTERIAL BLOOD GAS PCO2 54.2 mmHg (35-45); ARTERIAL BLOOD GAS PH 7.255 (7.35-7.45); ARTERIAL BLOOD GAS PO2 87.4 mmHg (80-90)
[2018-10-11 08:07] LABS: ACT PARTIAL THROMBO TIME 28.6 SECONDS (20.0-32.1)
[2018-10-11 08:09] LABS: ALBUMIN 3.1 gm/dl (3.1-4.5); ALKALINE PHOSPHATASE 92 U/L (45-117); BUN 16 mg/dl (7-24); CHLORIDE 105 mmol/L (98-107); CREATININE 1.02 mg/dL (0.55-1.02); POTASSIUM 3.6 mmol/L (3.5-5.1); SGOT/AST 38 IU/L (3-35); SGPT/ALT 27 U/L (12-78); SODIUM 139 mmol/L (136-145)
[2018-10-11 08:10] LABS: TROPONIN I < 0.015 ng/ml (<0.045)
[2018-10-11 08:25] LABS: BASOPHILS 1 % (0-1); PLATELET SUFFICIENCY NORMAL (NORMAL); TOTAL CELLS COUNTED 100 #CELLS
[2018-10-11 09:57] LABS: BILIRUBIN NEGATIVE (NEGATIVE); BLOOD TRACE-INTACT (NEGATIVE); CLARITY CLOUDY (CLEAR); COLOR YELLOW (YELLOW); GLUCOSE TRACE (NEGATIVE); KETONE NEGATIVE (NEGATIVE); LEUKO ESTERASE NEGATIVE (NEGATIVE); NITRITE NEGATIVE (NEGATIVE); SPECIFIC GRAVITY 1.025 (1.005-1.030)
[2018-10-11 10:18] LABS: BACTERIA 4+; MUCOUS 1+
[2018-10-11 11:32] LABS: ABG BASE EXCESS 1.2 mmol/L (-2.0-2.0); ABG HCO3 27.4 mmol/l (22-26); ARTERIAL BLOOD GAS PH 7.359 (7.35-7.45); ARTERIAL BLOOD GAS PO2 85.7 mmHg (80-90)
[2018-10-12] VITALS (15 sets, daily range): BP systolic 98–125; BP diastolic 53–73
[2018-10-12 05:18] LABS: BUN 20 mg/dl (7-24); CHLORIDE 108 mmol/L (98-107); CREATININE 0.92 mg/dL (0.55-1.02); POTASSIUM 3.9 mmol/L (3.5-5.1); SODIUM 141 mmol/L (136-145)
[2018-10-12 06:17] LABS: BASO % 0.1 % (0.0-1.0); EOS # 0.1 10*3/uL (0.0-0.4); LYMPH # 2.9 10*3/uL (1.3-4.4); LYMPH % 21.6 % (27.0-41.0); MEAN CELL VOLUME 95.3 fl (81.0-99.0); MEAN CORPUSCULAR HGB 30.3 pg (27.0-31.0); MEAN CORPUSCULAR HGB CONC 31.8 g/dl (33.0-37.0); MEAN PLATELET VOLUME 11.6 fl (9.6-12.3); MONO # 0.9 10*3/uL (0.1-1.0); MONO % 6.8 % (3.0-9.0); NEUT # 9.4 10*3/uL (2.3-7.9); RED BLOOD COUNT 4.66 10*6/uL (4.10-5.10); RED CELL DISTRI WIDTH 14.4 % (0-14.5); WHITE BLOOD COUNT 13.4 10*3/uL (4.8-10.8)
[2018-10-12 06:18] LABS: HEMATOCRIT 44.4 % (37.0-47.0); HEMOGLOBIN 14.1 g/dl (12.0-16.0); PLATELET COUNT AUTOMATED 157 10*3/uL (130-400)
[2018-10-13] VITALS (17 sets, daily range): BP systolic 82–114; BP diastolic 49–64
[2018-10-13 04:38] LABS: BASO % 0.3 % (0.0-1.0); EOS # 0.2 10*3/uL (0.0-0.4); EOS % 1.6 % (1.0-4.0); HEMATOCRIT 43.8 % (37.0-47.0); LYMPH # 2.8 10*3/uL (1.3-4.4); LYMPH % 27.3 % (27.0-41.0); MEAN CELL VOLUME 95.4 fl (81.0-99.0); MEAN CORPUSCULAR HGB 30.5 pg (27.0-31.0); MONO # 0.7 10*3/uL (0.1-1.0); MONO % 7.3 % (3.0-9.0); NEUT # 6.4 10*3/uL (2.3-7.9); NEUT % 63.2 % (47.0-73.0); PLATELET COUNT AUTOMATED 164 10*3/uL (130-400); RED BLOOD COUNT 4.59 10*6/uL (4.10-5.10); RED CELL DISTRI WIDTH 14.4 % (0-14.5); WHITE BLOOD COUNT 10.1 10*3/uL (4.8-10.8)
[2018-10-13 04:50] LABS: BUN 20 mg/dl (7-24); CHLORIDE 106 mmol/L (98-107); CREATININE 0.95 mg/dL (0.55-1.02); POTASSIUM 3.9 mmol/L (3.5-5.1); SODIUM 138 mmol/L (136-145)
[2018-10-14] VITALS: BP 98/42
[2018-10-14 02:50] VITALS: BP 105/57
[2018-10-14 05:32] LABS: BUN 23 mg/dl (7-24); CHLORIDE 105 mmol/L (98-107); CREATININE 0.72 mg/dL (0.55-1.02); POTASSIUM 4.2 mmol/L (3.5-5.1); SODIUM 136 mmol/L (136-145)
[2018-10-14 05:53] VITALS: BP 127/53
[2018-10-14 06:11] LABS: BASO % 0.2 % (0.0-1.0); EOS # 0.2 10*3/uL (0.0-0.4); HEMATOCRIT 41.6 % (37.0-47.0); HEMOGLOBIN 13.3 g/dl (12.0-16.0); LYMPH # 3.1 10*3/uL (1.3-4.4); LYMPH % 34.6 % (27.0-41.0); MEAN CELL VOLUME 94.8 fl (81.0-99.0); MEAN CORPUSCULAR HGB 30.3 pg (27.0-31.0); MEAN PLATELET VOLUME 11.3 fl (9.6-12.3); MONO # 0.6 10*3/uL (0.1-1.0); MONO % 6.5 % (3.0-9.0); NEUT # 5.1 10*3/uL (2.3-7.9); NEUT % 56.4 % (47.0-73.0); PLATELET COUNT AUTOMATED 153 10*3/uL (130-400); RED BLOOD COUNT 4.39 10*6/uL (4.10-5.10); RED CELL DISTRI WIDTH 14.2 % (0-14.5)
[2018-10-14 08:00] VITALS: BP 105/55
[2018-10-14 12:00] VITALS: BP 113/59
[2018-10-14 16:00] VITALS: BP 143/36
== END 2018-10-14 16:44 | disposition other institution (70) | DRG 871 ==
LOC: ED 07:26 → EDHOLD 08:36 → ICCU 08:36
PROVIDERS: Emergency Medicine; Internal Medicine Critical Care Medicine; ADMIT Internal Medicine
PROC: 5A09357 Assistance with Respiratory Ventilation, Less than 24 Consecutive Hours, Continuous Positive Airway Pressure (ICD-10-PCS; principal; 2018-10-11)
PROC: 5A09357 Assistance with Respiratory Ventilation, Less than 24 Consecutive Hours, Continuous Positive Airway Pressure (ICD-10-PCS; 2018-10-12)
PROC: 5A09357 Assistance with Respiratory Ventilation, Less than 24 Consecutive Hours, Continuous Positive Airway Pressure (ICD-10-PCS; 2018-10-13)
PROC: 5A09357 Assistance with Respiratory Ventilation, Less than 24 Consecutive Hours, Continuous Positive Airway Pressure (ICD-10-PCS; 2018-10-14)
DX: A41.9 Sepsis, unspecified organism (principal); E43 Unspecified severe protein-calorie malnutrition; I50.43 Acute on chronic combined systolic (congestive) and diastolic (congestive) heart failure; J96.22 Acute and chronic respiratory failure with hypercapnia; J96.21 Acute and chronic respiratory failure with hypoxia; J44.1 Chronic obstructive pulmonary disease with (acute) exacerbation; I13.0 Hypertensive heart and chronic kidney disease with heart failure and stage 1 through stage 4 chronic kidney disease, or unspecified chronic kidney disease; E66.2 Morbid (severe) obesity with alveolar hypoventilation; R65.20 Severe sepsis without septic shock; I48.0 Paroxysmal atrial fibrillation; I25.10 Atherosclerotic heart disease of native coronary artery without angina pectoris; G89.4 Chronic pain syndrome; F32.9 Major depressive disorder, single episode, unspecified; M47.896 Other spondylosis, lumbar region; Z96.1 Presence of intraocular lens; R62.7 Adult failure to thrive; N18.9 Chronic kidney disease, unspecified; F17.210 Nicotine dependence, cigarettes, uncomplicated; I35.2 Nonrheumatic aortic (valve) stenosis with insufficiency; E78.00 Pure hypercholesterolemia, unspecified; E11.22 Type 2 diabetes mellitus with diabetic chronic kidney disease; M54.9 Dorsalgia, unspecified; K21.9 Gastro-esophageal reflux disease without esophagitis; Z87.01 Personal history of pneumonia (recurrent); Z87.440 Personal history of urinary (tract) infections; Z90.49 Acquired absence of other specified parts of digestive tract; Z99.81 Dependence on supplemental oxygen; Z88.0 Allergy status to penicillin; Z98.51 Tubal ligation status; Z95.5 Presence of coronary angioplasty implant and graft; Z82.49 Family history of ischemic heart disease and other diseases of the circulatory system; Z83.3 Family history of diabetes mellitus; Z82.3 Family history of stroke; Z84.89 Family history of other specified conditions; Z98.49 Cataract extraction status, unspecified eye; Z71.6 Tobacco abuse counseling; Z87.11 Personal history of peptic ulcer disease; Z68.38 Body mass index [BMI] 38.0-38.9, adult